=== PATIENT | female | born 1985 | race Caucasian/White ===

== ENCOUNTER 2017-02-25 07:54 | Emergency (ER) | payer OTHER ==
[2017-02-25 08:03] VITALS: BP 99/56
--- NOTE | 2017-02-25 08:19 | UC ---
Throat Pain/Nasal Torsten HPI - HPI Summary HPI Summary: sinus pain and pressure x 7 days + pnd, cough, no fever, no chills - History of Current Complaint Chief Complaint: UCRespiratory Stated Complaint: RESPIRATORY,SINUS Time Seen by Provider: 02/25/17 08:00 Hx Obtained From: Patient Hx Last Menstrual Period: TWO YEARS AGO, HAD UTERINE ABLATION, TUBAL LIGATION ?: No Onset/Duration: Gradual Onset, Lasting Days - 7, Still Present Severity: Moderate Cough: Nonproductive Associated Signs & Symptoms: Positive: Sinus Discomfort, Nasal Discharge. Negative: Dysphagia, Fever, Rash - Allergies/Home Medications Allergies/Adverse Reactions: Allergies Allergy/AdvReac Type Severity Reaction Status Date / Time Penicillins AdvReac Severe Abdominal Verified 02/25/17 08:03 Pain Albuterol AdvReac Shanking, Verified 02/25/17 08:03 Anxiety Peanut Oil AdvReac GI Upset Verified 02/25/17 08:03 peanuts Allergy Stomach Uncoded 02/25/17 08:03 Cramps PMH/Surg Hx/FS Hx/Imm Hx Endocrine History Of: Denies: Diabetes, Thyroid Disease, Hyperthyroidism, Hypothyroidism, Dyslipidemia Cardiovascular History Of: Denies: Cardiac Disorders, Hypertension, Pacemaker/ICD, Myocardial Infarction , Congestive Heart Failure, Atrial Fibrillation, Deep Vein Thrombosis, Bleeding Disorders Respiratory History Of: Reports: Asthma - only uses [place] inh prn, Bronchitis Denies: COPD, Pneumonia, Pulmonary Embolism GI/ History Of: Reports: Gastroesophageal Reflux, Ulcer Denies: Gastrointestinal Bleed, Gall Bladder Disease, Kidney Stones, Diverticulitis, Renal Disease, Urosepsis Neurological History Of: Denies: TIA, CVA, Dementia, Seizures, Migraine Psychological History Of: Denies: Anxiety, Depression, Bipolar Disorder, Schizophrenia, Post Traumatic Stress Disorder Cancer History Of: Denies: Lung Cancer, Colorectal Cancer, Breast Cancer, Prostate Cancer, Cervical Cancer Other History Of: Negative For: HIV, Hepatitis B, Hepatitis C, Anticoagulant Therapy - Surgical History Surgical History: Yes Surgery Procedure, Year, and Place: Uterine Ablation, 09/14/12. Tubal Ligation , 2011. ENDOSCOPY - Family History Known Family History: Positive: Respiratory Disease Negative: Cardiac Disease, Hypertension, Diabetes - Social History Alcohol Use: None Substance Use Type: None Smoking Status (MU): Former Smoker Have You Smoked in the Last Year: No When Did the Patient Quit Smoking/Using Tobacco: 3 years ago - Immunization History Most Recent Influenza Vaccination: OCT 2015 Most Recent Tetanus Shot: May 2013 Hx Tetanus, Diphtheria Vaccination: Yes Vaccination Up to Date: Yes Review of Systems Constitutional: Negative Skin: Negative Eyes: Negative ENT: Sore Throat, Nasal Discharge Respiratory: Cough Cardiovascular: Negative All Other Systems Reviewed And Are Negative: Yes Physical Exam Triage Information Reviewed: Yes Appearance: Well-Appearing, No Pain Distress, Well-Nourished Vital Signs: Initial Vital Signs Temp 98 F 02/25/17 07:58 Pulse 62 02/25/17 07:58 Resp 18 02/25/17 07:58 BP 99/56 02/25/17 07:58 Pulse Ox 98 02/25/17 07:58 Vital Signs Reviewed: Yes Eye Exam: Normal Eyes: Positive: Conjunctiva Clear ENT: Positive: Normal ENT inspection, Hearing grossly normal, Pharyngeal erythema, Nasal congestion, Nasal drainage, TMs normal Neck exam: Normal Neck: Positive: Supple, Nontender, No Lymphadenopathy Respiratory: Positive: Chest non-tender, Lungs clear, Normal breath sounds Cardiovascular: Positive: RRR, No Murmur, Pulses Normal Abdominal Exam: Normal Abdomen Description: Positive: Nontender, No Organomegaly, Soft Bowel Sounds: Positive: Present Throat Pain/Nasal Course/Dx - Differential Dx/Diagnosis Provider Diagnoses: sinusitis Discharge - Discharge Plan Condition: Stable Disposition: HOME Prescriptions: Amoxicillin/Clavulanate TAB* [Augmentin TAB 875*] 875 mg PO BID #20 tab Fluticasone HFA 44 mcg(NF) [Flovent Hfa 44 mcg(NF)] 1 puff INH BID #1 mdi Patient Education Materials: Sinusitis (ED) Referrals: Kayla Roy MD [Primary Care Provider] - If Needed
== END 2017-02-25 08:22 | disposition home or self-care (01) ==
LOC: UCCORT 07:54
DX: J32.9 Chronic sinusitis, unspecified (principal); J45.909 Unspecified asthma, uncomplicated; K21.9 Gastro-esophageal reflux disease without esophagitis; Z88.0 Allergy status to penicillin; Z87.891 Personal history of nicotine dependence
CPT/HCPCS: 99212; G0463

== ENCOUNTER 2017-03-03 11:00 | Emergency (ER) | payer OTHER ==
[2017-03-03 11:21] VITALS: BP 108/44
[2017-03-03] MEDS ORDERED: Ondansetron ODT TAB* 4 MG PO ONE (11:29)
--- NOTE | 2017-03-03 11:35 | ED ---
Abdominal Pain/Female - HPI Summary HPI Summary: 31 yr old female with the complaint of NV, epigastric pain. Onset of symptoms 1 hours ago. 8/10 epigastric pain that doubles her over. She is dry heaving. She has no diarrhea. The patient states she had a recent upper respiratory infection. She feels this is a new separate issue today. The patient has had cough, and pain in chest with coughing as well for several days. - History of Current Complaint Chief Complaint: UCAbdominalPain Stated Complaint: VOMITING [place]S FEVER Time Seen by Provider: 03/03/17 11:23 Hx Last Menstrual Period: Uterine Ablasion- 2011 Allergies/Adverse Reactions: Allergies Allergy/AdvReac Type Severity Reaction Status Date / Time Penicillins AdvReac Severe Abdominal Verified 03/03/17 11:20 Pain Albuterol AdvReac Shanking, Verified 03/03/17 11:20 Anxiety Peanut Oil AdvReac GI Upset Verified 03/03/17 11:20 Blue Foam Allergy Hives Uncoded 03/03/17 11:21 peanuts Allergy Stomach Uncoded 03/03/17 11:20 Cramps PMH/Surg Hx/FS Hx/Imm Hx Endocrine/Hematology History: Denies: Hx Anticoagulant Therapy, Hx Diabetes, Hx Thyroid Disease Cardiovascular History: Denies: Hx Congestive Heart Failure, Hx Deep Vein Thrombosis, Hx Hypertension , Hx Myocardial Infarction, Hx Pacemaker/ICD Respiratory History: Reports: Hx Asthma - only uses [place] inh prn Denies: Hx Chronic Obstructive Pulmonary Disease (COPD), Hx Lung Cancer, Hx Pneumonia, Hx Pulmonary Embolism GI History: Reports: Hx Ulcer Denies: Hx Gall Bladder Disease, Hx Gastrointestinal Bleed, Hx Urosepsis History: Denies: Hx Kidney Stones, Hx Renal Disease Neurological History: Denies: Hx Dementia, Hx Migraine, Hx Seizures, Hx Transient Ischemic Attacks (TIA) Psychiatric History: Denies: Hx Anxiety, Hx Depression, Hx Schizophrenia, Hx Bipolar Disorder - Surgical History Surgery Procedure, Year, and Place: Uterine Ablation, 09/14/12. Tubal Ligation , 2011. ENDOSCOPY Infectious Disease History: No Infectious Disease History: Denies: Hx Clostridium Difficile, Hx Hepatitis, Hx Human Immunodeficiency Virus (HIV), Hx of Known/Suspected MRSA, Hx Shingles, Hx Tuberculosis, Hx Known/ Suspected VRE, Hx Known/Suspected VRSA, History Other Infectious Disease, Traveled Outside the [place] in Last 30 Days - Family History Known Family History: Positive: Respiratory Disease Negative: Cardiac Disease, Hypertension, Diabetes - Social History Alcohol Use: None Substance Use Type: Reports: None Smoking Status (MU): Former Smoker Have You Smoked in the Last Year: No Review of Systems Positive: Chills, Fatigue Positive: Chest Pain Positive: Abdominal Pain, Vomiting, Nausea All Other Systems Reviewed And Are Negative: Yes Physical Exam Triage Information Reviewed: Yes Vital Signs On Initial Exam: Initial Vitals Temp Pulse Resp BP Pulse Ox 97.0 F 60 18 108/44 100 03/03/17 11:12 03/03/17 11:12 03/03/17 11:12 03/03/17 11:12 03/03/17 11:12 Vital Signs Reviewed: Yes Appearance: Positive: Ill-Appearing, Pain Distress Skin: Positive: Warm Head/Face: Positive: Normal Head/Face Inspection Eyes: Positive: Normal, EOMI ENT: Positive: Normal ENT inspection Neck: Positive: Supple Respiratory/Lung Sounds: Positive: Clear to Auscultation, Breath Sounds Present Cardiovascular: Positive: Normal, RRR. Negative: Murmur Abdomen Description: Positive: Other: - epigastric tenderness Musculoskeletal: Positive: Normal, Strength/ROM Intact Neurological: Positive: Normal, Sensory/Motor Intact, Alert, Oriented to Person Place, Time Diagnostics - Vital Signs Vital Signs Temp Pulse Resp BP Pulse Ox 03/03/17 11:12 97.0 F 60 18 108/44 100 - Laboratory Lab Statement: Any lab studies that have been ordered have been reviewed, and results considered in the medical decision making process. Abdominal Pain Fem Course/Dx - Course Course Of Treatment: 31 yr old with epigastric pain and vomiting and other complaints. To [facility] for further eval. Lexi Wlaler contacted and accepts transfer to the ER. - Diagnoses Provider Diagnoses: Abdominal pain, Vomiting Discharge - Discharge Plan Condition: Good [facility]
== END 2017-03-03 11:52 | disposition short-term general hospital (02) ==
LOC: UCCORT 11:00
DX: R10.13 Epigastric pain (principal); R11.2 Nausea with vomiting, unspecified; J45.909 Unspecified asthma, uncomplicated; Z88.0 Allergy status to penicillin; Z87.891 Personal history of nicotine dependence
CPT/HCPCS: 99213; G0463

== ENCOUNTER 2017-06-05 17:40 | Emergency (ER) | payer OTHER ==
[2017-06-05 18:01] VITALS: BP 114/58
--- NOTE | 2017-06-05 18:35 | UC ---
Throat Pain/Nasal Torsten HPI - HPI Summary HPI Summary: ONE WEEK OF PRODUCTIVE COUGH AND RESPIRATORY CONGESTION AND SINUS PRESSURE. TODAY SORE THROAT, WORSENING SINUS CONGESTION, AND LARYNGITIS. FEVER TODAY. - History of Current Complaint Chief Complaint: UCRespiratory Stated Complaint: COUGH/CONGESTION/SORE THROAT Time Seen by Provider: 06/05/17 18:04 Hx Obtained From: Patient Hx Last Menstrual Period: HAS HAD A UTERINE ABLATION. DOES NOT HAVE REG PERIODS Onset/Duration: Gradual Onset, Lasting Weeks, Worse Since - TODAY Severity: Moderate Cough: Productive Associated Signs & Symptoms: Positive: Hoarseness, Sinus Discomfort, Nasal Discharge, Fever - Epiglottits Risk Factors Epiglottis Risk Factors: Negative - Allergies/Home Medications Allergies/Adverse Reactions: Allergies Allergy/AdvReac Type Severity Reaction Status Date / Time Penicillins AdvReac Severe Abdominal Verified 06/05/17 17:51 Pain Albuterol AdvReac Shanking, Verified 06/05/17 17:51 Anxiety Peanut Oil AdvReac GI Upset Verified 06/05/17 17:51 Blue Foam Allergy Hives Uncoded 06/05/17 17:51 peanuts Allergy Stomach Uncoded 06/05/17 17:51 Cramps Home Medications: Home Medications Butalb/Acetamin/Caff TAB* [Fioricet TAB*] 1 tab PO Q6H PRN 06/05/17 [History Confirmed 06/05/17] PMH/Surg Hx/FS Hx/Imm Hx Previously Healthy: Yes Other History Of: Negative For: HIV, Hepatitis B, Hepatitis C, Anticoagulant Therapy - Surgical History Surgical History: Yes Surgery Procedure, Year, and Place: Uterine Ablation, 09/14/12. Tubal Ligation , 2011. ENDOSCOPY - Family History Known Family History: Positive: Respiratory Disease Negative: Cardiac Disease, Hypertension, Diabetes - Social History Occupation: Employed Full-time Lives: With Family Alcohol Use: None Substance Use Type: None Smoking Status (MU): Former Smoker Have You Smoked in the Last Year: No When Did the Patient Quit Smoking/Using Tobacco: 2013 Household Exposure Type: Cigarettes - Immunization History Most Recent Influenza Vaccination: OCT 2015 Most Recent Tetanus Shot: May 2013 Hx Tetanus, Diphtheria Vaccination: Yes Vaccination Up to Date: Yes Review of Systems Constitutional: Fever, Fatigue Skin: Negative ENT: Sore Throat, Nasal Discharge, Sinus Congestion, Sinus Pain/Tenderness Respiratory: Cough Cardiovascular: Negative Gastrointestinal: Negative Genitourinary: Negative Motor: Negative Neurovascular: Negative Musculoskeletal: Negative Neurological: Negative Psychological: Negative All Other Systems Reviewed And Are Negative: Yes Physical Exam Triage Information Reviewed: Yes Appearance: No Pain Distress, Well-Nourished, Ill-Appearing Vital Signs: Initial Vital Signs Temp 99.8 F 06/05/17 17:54 Pulse 63 06/05/17 17:54 Resp 18 06/05/17 17:54 BP 114/58 06/05/17 17:54 Pulse Ox 100 06/05/17 17:54 Vital Signs Reviewed: Yes Eye Exam: Normal ENT: Positive: Pharyngeal erythema, Nasal congestion, TM bulging, TM dull Dental Exam: Normal Neck exam: Normal Neck: Positive: Supple, Nontender Respiratory Exam: Other - COUGH Respiratory: Positive: Chest non-tender, Lungs clear, Normal breath sounds, No respiratory distress, No accessory muscle use Cardiovascular Exam: Normal Cardiovascular: Positive: RRR, No Murmur, Pulses Normal, Brisk Capillary Refill Abdominal Exam: Normal Musculoskeletal Exam: Normal Musculoskeletal: Positive: Strength Intact, ROM Intact, No Edema Neurological Exam: Normal Psychological Exam: Normal Skin Exam: Normal Throat Pain/Nasal Course/Dx - Differential Dx/Diagnosis Differential Diagnosis/HQI/PQRI: Pharyngitis, Sinusitis, URI Provider Diagnoses: SINUSITIS; LARYNGITIS Discharge - Discharge Plan Condition: Stable Disposition: HOME Prescriptions: Azithromycin TAB* [Zithromax TAB (Z-OTTO) 250 mg #6 tabs] 250 mg PO DAILY #6 tab Patient Education Materials: Sinusitis (ED), Laryngitis (ED), Acute Bronchitis (ED) Forms: *Work Release Referrals: Kayla Roy MD [Primary Care Provider] -
== END 2017-06-05 18:33 | disposition home or self-care (01) ==
LOC: UCCORT 17:40
DX: J32.9 Chronic sinusitis, unspecified (principal); J04.0 Acute laryngitis; Z88.0 Allergy status to penicillin; Z87.891 Personal history of nicotine dependence
CPT/HCPCS: 87651; 99212; G0463

== ENCOUNTER 2017-06-25 09:05 | Emergency (ER) | payer OTHER ==
--- NOTE | 2017-06-25 09:21 | UC ---
Complaint Female HPI - HPI Summary HPI Summary: Vaginal burning and itching for a few days. No recent antibiotics. this feels similar to prior yeast infections. No prior STD and she uses condoms every time. - History Of Current Complaint Stated Complaint: PERSONAL Time Seen by Provider: 06/25/17 09:13 Hx Last Menstrual Period: HAS HAD A UTERINE ABLATION. DOES NOT HAVE REG PERIODS ?: No Onset/Duration: Gradual Onset Timing: Lasting Days Severity Initially: Mild Severity Currently: Moderate Character: Burning Aggravating Factor(s): Movement Alleviating Factor(s): Position Associated Signs And Symptoms: Positive: Vaginal Discharge, Genital Swelling. Negative: Nausea, Genital Blisters Related Hx: Similar Episode/Dx as: - yeast infection. - Allergies/Home Medications Allergies/Adverse Reactions: Allergies Allergy/AdvReac Type Severity Reaction Status Date / Time Penicillins AdvReac Severe Abdominal Verified 06/25/17 09:22 Pain Albuterol AdvReac Shanking, Verified 06/25/17 09:22 Anxiety Amoxicillin [From Augmentin] AdvReac Abdominal Verified 06/25/17 09:23 Pain Clavulanic Acid AdvReac Abdominal Verified 06/25/17 09:23 [From Augmentin] Pain Peanut Oil AdvReac GI Upset Verified 06/25/17 09:22 Blue Foam Allergy Hives Uncoded 06/25/17 09:22 peanuts Allergy Stomach Uncoded 06/25/17 09:22 Cramps PMH/Surg Hx/FS Hx/Imm Hx Previously Healthy: No - prior yeast vaginitis. Other History Of: Negative For: HIV, Hepatitis B, Hepatitis C, Anticoagulant Therapy - Surgical History Surgical History: Yes Surgery Procedure, Year, and Place: Uterine Ablation, 09/14/12. Tubal Ligation , 2011. ENDOSCOPY - Family History Known Family History: Positive: Respiratory Disease Negative: Cardiac Disease, Hypertension, Diabetes - Social History Alcohol Use: None Substance Use Type: None Smoking Status (MU): Former Smoker Have You Smoked in the Last Year: No When Did the Patient Quit Smoking/Using Tobacco: 2013 Household Exposure Type: Cigarettes - Immunization History Most Recent Influenza Vaccination: OCT 2015 Most Recent Tetanus Shot: May 2013 Hx Tetanus, Diphtheria Vaccination: Yes Vaccination Up to Date: Yes Review of Systems Genitourinary: Other - burning and itching. All Other Systems Reviewed And Are Negative: Yes Physical Exam Triage Information Reviewed: Yes Appearance: Well-Appearing, No Pain Distress, Well-Nourished Vital Signs Reviewed: Yes Eye Exam: Normal ENT Exam: Normal Neck exam: Normal Respiratory Exam: Normal Cardiovascular Exam: Normal Abdominal Exam: Normal, Other - external vaginal exam shows irritation and pinkness with moderate thick discharge. Musculoskeletal Exam: Normal Neurological Exam: Normal Psychological Exam: Normal Skin Exam: Normal Complaint Female Dx - Differential Dx/Diagnosis Differential Diagnosis/HQI/PQRI: Ovarian Cyst, Ovarian Torsion, Pelvic Inflammatory Disease, Retained Foreign Body, Sexually Transmitted Disease, Tubo- ovarian Abscess Provider Diagnoses: yeast vaginitis. Discharge - Discharge Plan Condition: Good Disposition: HOME Prescriptions: Fluconazole 100 MG TAB* [Diflucan 100 MG TAB*] 100 mg PO DAILY #3 tab Patient Education Materials: Vulvovaginal Candidiasis (ED) Referrals: Kayla Roy MD [Primary Care Provider] - If Needed
[2017-06-25 09:38] VITALS: BP 104/64
--- NOTE | 2017-06-26 07:55 | UC ---
Progress - Progress Note Progress Note: vag DNA is neg for joanna. Was given fluconazole x 3 days. May DC fluconazole. If still has sxs, needs re-evaluation. Everette Mane MD 06/26/17 0755am
== END 2017-06-25 09:44 | disposition home or self-care (01) ==
LOC: UCCORT 09:05
DX: B37.3 Candidiasis of vulva and vagina (principal); Z88.1 Allergy status to other antibiotic agents; Z88.0 Allergy status to penicillin; Z87.891 Personal history of nicotine dependence
CPT/HCPCS: 87480; 87491; 87510; 87591; 87661; 99202; G0463

== ENCOUNTER 2017-07-01 08:37 | Emergency (ER) | payer OTHER ==
[2017-07-01 08:47] VITALS: BP 96/56
--- NOTE | 2017-07-01 09:03 | UC ---
Complaint Female HPI - HPI Summary HPI Summary: vaginal discharge x 1 week\ was seen at the urgent care one week ago , was place on diflucan , vaginal cultures has been negative for BV or Antonia cont. to have discharge with fishy odor no dysuria, no fever, no chills - History Of Current Complaint Chief Complaint: UCGU Stated Complaint: PERSONAL Time Seen by Provider: 07/01/17 08:48 Hx Obtained From: Patient Hx Last Menstrual Period: 2 yrs ago Onset/Duration: Gradual Onset, Lasting Days - 7, Still Present Timing: Constant Severity Initially: Moderate Severity Currently: Moderate Character: Not Applicable Aggravating Factor(s): Nothing Alleviating Factor(s): Nothing Associated Signs And Symptoms: Positive: Vaginal Discharge. Negative: Fever, Back Pain, Vaginal Bleeding/Discharge, Nausea, Vomiting(# Of Episodes =), Genital Swelling, Genital Blisters, Retained Foregin Body (Specify) - Allergies/Home Medications Allergies/Adverse Reactions: Allergies Allergy/AdvReac Type Severity Reaction Status Date / Time Penicillins AdvReac Severe Abdominal Verified 07/01/17 08:40 Pain Albuterol AdvReac Shanking, Verified 07/01/17 08:40 Anxiety Amoxicillin [From Augmentin] AdvReac Abdominal Verified 07/01/17 08:40 Pain Clavulanic Acid AdvReac Abdominal Verified 07/01/17 08:40 [From Augmentin] Pain Peanut Oil AdvReac GI Upset Verified 07/01/17 08:40 Blue Foam Allergy Hives Uncoded 07/01/17 08:40 peanuts Allergy Stomach Uncoded 07/01/17 08:40 Cramps PMH/Surg Hx/FS Hx/Imm Hx Previously Healthy: Yes Other History Of: Negative For: HIV, Hepatitis B, Hepatitis C, Anticoagulant Therapy - Surgical History Surgical History: Yes Surgery Procedure, Year, and Place: Uterine Ablation, 09/14/12. Tubal Ligation , 2011. ENDOSCOPY - Family History Known Family History: Positive: Respiratory Disease Negative: Cardiac Disease, Hypertension, Diabetes - Social History Alcohol Use: None Substance Use Type: None Smoking Status (MU): Former Smoker Have You Smoked in the Last Year: No When Did the Patient Quit Smoking/Using Tobacco: 2013 Household Exposure Type: Cigarettes - Immunization History Most Recent Influenza Vaccination: OCT 2015 Most Recent Tetanus Shot: May 2013 Hx Tetanus, Diphtheria Vaccination: Yes Vaccination Up to Date: Yes Review of Systems Constitutional: Negative Skin: Negative Eyes: Negative ENT: Negative Respiratory: Negative Cardiovascular: Negative Gastrointestinal: Negative Genitourinary: Other - vaginal discharge All Other Systems Reviewed And Are Negative: Yes Physical Exam Triage Information Reviewed: Yes Appearance: Well-Appearing, No Pain Distress, Well-Nourished Vital Signs: Initial Vital Signs Temp 99.2 F 07/01/17 08:42 Pulse 60 07/01/17 08:42 Resp 16 07/01/17 08:42 BP 96/56 07/01/17 08:42 Pulse Ox 100 07/01/17 08:42 Eye Exam: Normal Eyes: Positive: Conjunctiva Clear ENT: Positive: Normal ENT inspection, Hearing grossly normal, Pharynx normal Neck: Positive: Supple, Nontender, No Lymphadenopathy Respiratory: Positive: Chest non-tender, Lungs clear, Normal breath sounds Cardiovascular: Positive: RRR, No Murmur, Pulses Normal Abdominal Exam: Normal Abdomen Description: Positive: Nontender, Soft. Negative: CVA Tenderness (R), CVA Tenderness (L), Distended, Guarding Bowel Sounds: Positive: Present Skin Exam: Normal Complaint Female Dx - Course Course Of Treatment: will start treatment with Flagyl. will not obtain culture at this time. pt. with follow up with her pcp in one week if not better - Differential Dx/Diagnosis Provider Diagnoses: vaginitis Discharge - Discharge Plan Condition: Stable Disposition: HOME Prescriptions: Metronidazole [Flagyl 500 MG TAB] 500 mg PO BID #20 tab Patient Education Materials: Bacterial Vaginosis (ED) Referrals: Kayla Roy MD [Primary Care Provider] - 7 Days
== END 2017-07-01 09:03 | disposition home or self-care (01) ==
LOC: UCCORT 08:37
DX: N76.0 Acute vaginitis (principal); Z88.0 Allergy status to penicillin; Z88.8 Allergy status to other drugs, medicaments and biological substances; Z88.1 Allergy status to other antibiotic agents; Z91.010 Allergy to peanuts; Z87.891 Personal history of nicotine dependence
CPT/HCPCS: 99212; G0463

== ENCOUNTER 2017-07-10 17:34 | Emergency (ER) | payer OTHER ==
[2017-07-10 18:08] VITALS: BP 104/61
--- NOTE | 2017-07-10 18:48 | UC ---
Complaint Female HPI - HPI Summary HPI Summary: vaginal discharge x 1 week + dysuria , no abdominal pain , no fever, no chills - History Of Current Complaint Chief Complaint: UCGeneralIllness Stated Complaint: PERSONAL Time Seen by Provider: 07/10/17 18:02 Hx Obtained From: Patient Hx Last Menstrual Period: hx of tubal/ablation ?: No Onset/Duration: Gradual Onset, Lasting Days - 7, Still Present Timing: Constant Severity Initially: Moderate Severity Currently: Moderate Character: Burning Aggravating Factor(s): Urination Alleviating Factor(s): Nothing Associated Signs And Symptoms: Positive: Vaginal Discharge. Negative: Fever, Back Pain, Vaginal Bleeding/Discharge, Nausea, Vomiting(# Of Episodes =), Genital Swelling, Genital Blisters, Retained Foregin Body (Specify) - Allergies/Home Medications Allergies/Adverse Reactions: Allergies Allergy/AdvReac Type Severity Reaction Status Date / Time Penicillins AdvReac Severe Abdominal Verified 07/10/17 17:46 Pain Albuterol AdvReac Shanking, Verified 07/10/17 17:46 Anxiety Amoxicillin [From Augmentin] AdvReac Abdominal Verified 07/10/17 17:46 Pain Clavulanic Acid AdvReac Abdominal Verified 07/10/17 17:46 [From Augmentin] Pain Peanut Oil AdvReac GI Upset Verified 07/10/17 17:46 Blue Foam Allergy Hives Uncoded 07/10/17 17:46 peanuts Allergy Stomach Uncoded 07/10/17 17:46 Cramps PMH/Surg Hx/FS Hx/Imm Hx Previously Healthy: Yes Other History Of: Negative For: HIV, Hepatitis B, Hepatitis C, Anticoagulant Therapy - Surgical History Surgical History: Yes Surgery Procedure, Year, and Place: Uterine Ablation, 09/14/12. Tubal Ligation , 2011. ENDOSCOPY - Family History Known Family History: Positive: Respiratory Disease Negative: Cardiac Disease, Hypertension, Diabetes - Social History Alcohol Use: None Substance Use Type: None Smoking Status (MU): Former Smoker Have You Smoked in the Last Year: No When Did the Patient Quit Smoking/Using Tobacco: 2013 Household Exposure Type: Cigarettes - Immunization History Most Recent Influenza Vaccination: NONE 2015 Most Recent Tetanus Shot: May 2013 Hx Tetanus, Diphtheria Vaccination: Yes Vaccination Up to Date: Yes Review of Systems Constitutional: Negative Skin: Negative Eyes: Negative ENT: Negative Respiratory: Negative All Other Systems Reviewed And Are Negative: Yes Physical Exam Triage Information Reviewed: Yes Appearance: Well-Appearing, No Pain Distress, Well-Nourished Vital Signs: Initial Vital Signs Temp 99.1 F 07/10/17 17:47 Pulse 44 07/10/17 17:47 Resp 16 07/10/17 17:47 BP 104/61 07/10/17 17:47 Pulse Ox 100 07/10/17 17:47 Vital Signs Reviewed: Yes Eye Exam: Normal Eyes: Positive: Conjunctiva Clear ENT: Positive: Normal ENT inspection, Hearing grossly normal, Pharynx normal Neck: Positive: Supple, Nontender, No Lymphadenopathy Respiratory: Positive: Chest non-tender, Lungs clear, Normal breath sounds Cardiovascular: Positive: RRR, No Murmur, Pulses Normal Abdomen Description: Positive: Nontender, Soft. Negative: CVA Tenderness (R), CVA Tenderness (L), Distended, Guarding Bowel Sounds: Positive: Present Skin Exam: Normal UC Physical Exam Vital Signs On Initial Exam: Initial Vitals Temp Pulse Resp BP Pulse Ox 99.1 F 44 16 104/61 100 07/10/17 17:47 07/10/17 17:47 07/10/17 17:47 07/10/17 17:47 07/10/17 17:47 - Genitalia Exam Female Genitourinary: Cervix Discharge Complaint Female Dx - Course Course Of Treatment: pt. does not want any tx of gc /chl. she would like to be treated for bv with Clinda and will wait for the culture results - Differential Dx/Diagnosis Provider Diagnoses: vaginitis Discharge - Discharge Plan Condition: Stable Disposition: HOME Prescriptions: Clindamycin Cap(NF) [Clindamycin Cap 300 mg Cap(NF)] 300 mg PO Q6H #40 cap Patient Education Materials: Vaginitis (ED) Referrals: Kayla Roy MD [Primary Care Provider] - 4 Days Additional Instructions: will check go GC/ Chle please call the office in 2 days for the results
== END 2017-07-10 18:52 | disposition home or self-care (01) ==
LOC: UCCORT 17:34
DX: N76.0 Acute vaginitis (principal); Z88.0 Allergy status to penicillin; Z88.3 Allergy status to other anti-infective agents; Z91.010 Allergy to peanuts; Z87.891 Personal history of nicotine dependence
CPT/HCPCS: 81003; 87480; 87491; 87510; 87591; 87661; 99212; G0463

== ENCOUNTER 2017-07-12 10:54 | Emergency (ER) | payer OTHER ==
[2017-07-12 11:06] VITALS: BP 110/58
--- NOTE | 2017-07-12 11:29 | UC ---
Complaint Female HPI - HPI Summary HPI Summary: 32 y/o female presents to the urgent care c/o itching, burning sensation in the vaginal perineal area with a cottage cheese like discharge. She was here about 2 weeks ago and was Tx for a yeast infection and then last 07/10/2017 she came with BV symptoms and Rx Clyndamycin b/c Flagyl was not working. She states this always happens when the she changes partner. She has been with the same partner for a few weeks. she does use condoms. Pt requests Tx for yeast Infection, even though she knows the lab results they did Last were negative for Antonia and BV. Pt with Hx uterine ablation and B/L tubal ligation. Pt denies fever, vaginal bleeding, pelvic pain, urinary symptoms. abdominal pain. - History Of Current Complaint Chief Complaint: UCGU Stated Complaint: PERSONAL Time Seen by Provider: 07/12/17 11:10 Hx Obtained From: Patient Hx Last Menstrual Period: ablation, tubal ?: No Onset/Duration: Gradual Onset, Lasting Days, Still Present Timing: Constant, Lasting Days - 3 days Severity Initially: Mild Severity Currently: Moderate Pain Intensity: 0 Pain Scale Used: 0-10 Numeric Character: Not Applicable Aggravating Factor(s): Nothing Alleviating Factor(s): Meds Associated Signs And Symptoms: Positive: Vaginal Discharge - Cottage cheese vaginal discharge. Negative: Fever, Back Pain, Vaginal Bleeding/Discharge, Nausea, Vomiting(# Of Episodes =), Genital Swelling, Genital Blisters - Risk Factors Ectopic Risk Factor: Negative Ovarian Torsion Risk Factor: Negative - Allergies/Home Medications Allergies/Adverse Reactions: Allergies Allergy/AdvReac Type Severity Reaction Status Date / Time Penicillins AdvReac Severe Abdominal Verified 07/12/17 11:07 Pain Albuterol AdvReac Shanking, Verified 07/12/17 11:07 Anxiety Amoxicillin [From Augmentin] AdvReac Abdominal Verified 07/12/17 11:07 Pain Clavulanic Acid AdvReac Abdominal Verified 07/12/17 11:07 [From Augmentin] Pain Peanut Oil AdvReac GI Upset Verified 07/12/17 11:07 Blue Foam Allergy Hives Uncoded 07/12/17 11:07 peanuts Allergy Stomach Uncoded 07/12/17 11:07 Cramps PMH/Surg Hx/FS Hx/Imm Hx Previously Healthy: Yes Respiratory History: Asthma Other History Of: Negative For: HIV, Hepatitis B, Hepatitis C, Anticoagulant Therapy - Surgical History Surgical History: Yes Surgery Procedure, Year, and Place: Uterine Ablation, 09/14/12. Tubal Ligation , 2011. ENDOSCOPY - Family History Known Family History: Positive: Respiratory Disease Negative: Cardiac Disease, Hypertension, Diabetes - Social History Alcohol Use: None Substance Use Type: None Smoking Status (MU): Former Smoker Have You Smoked in the Last Year: No When Did the Patient Quit Smoking/Using Tobacco: 2013 Household Exposure Type: Cigarettes - Immunization History Most Recent Influenza Vaccination: OCT 2015 Most Recent Tetanus Shot: May 2013 Hx Tetanus, Diphtheria Vaccination: Yes Vaccination Up to Date: Yes Review of Systems Constitutional: Negative Skin: Negative Eyes: Negative ENT: Negative, Dental Pain Cardiovascular: Negative Gastrointestinal: Negative Genitourinary: Other - white and cottage cheese vaginal discharge. W/ vaginal burning Motor: Negative Neurovascular: Negative Musculoskeletal: Negative Neurological: Negative Psychological: Negative All Other Systems Reviewed And Are Negative: Yes Physical Exam Triage Information Reviewed: Yes Appearance: Well-Appearing, No Pain Distress, Well-Nourished Vital Signs: Initial Vital Signs Temp 98.9 F 07/12/17 11:01 Pulse 47 07/12/17 11:01 Resp 14 07/12/17 11:01 BP 110/58 07/12/17 11:01 Pulse Ox 100 07/12/17 11:01 Vital Signs Reviewed: Yes Eye Exam: Normal Eyes: Positive: Conjunctiva Clear - PERRLA, EOMI ENT Exam: Normal ENT: Positive: Normal ENT inspection, Hearing grossly normal, Pharynx normal, TMs normal Dental Exam: Normal Neck exam: Normal Neck: Positive: Supple, Nontender, No Lymphadenopathy Respiratory Exam: Normal Respiratory: Positive: Chest non-tender, Lungs clear, Normal breath sounds Cardiovascular Exam: Normal Cardiovascular: Positive: RRR, No Murmur, Pulses Normal Abdominal Exam: Normal Abdomen Description: Positive: Nontender, No Organomegaly, Soft. Negative: CVA Tenderness (R), CVA Tenderness (L) Bowel Sounds: Positive: Present Musculoskeletal Exam: Normal Musculoskeletal: Positive: Strength Intact, ROM Intact, No Edema Neurological Exam: Normal Psychological Exam: Normal Skin Exam: Normal Complaint Female Dx - Course Course Of Treatment: 32 y/o female presents to the urgent care c/o itching, burning sensation in the vaginal perineal area with a cottage cheese like discharge. She was here about 2 weeks ago and was Tx for a yeast infection and then last 07/10/2017 she came with BV symptoms and Rx Clyndamycin b/c Flagyl was not working. She states this always happens when the she changes partner. She has been with the same partner for a few weeks. she does use condoms. Pt requests Tx for yeast Infection, even though she knows the lab results they did Last were negative for Antonia and BV. Pt with Hx uterine ablation and B/L tubal ligation. Pt denies fever, vaginal bleeding, pelvic pain, urinary symptoms. abdominal pain. Hx obtained. PE: WNL, Pt decline pelvic examination. No Hx of STDs Eventhough lab results are negative for Candidiasis and BV she Requested Fluconazole PO. Pt Rx Fluconazole 100mg PO X 3 days. Pt advised to eat yougurt with probiotics. If not improvement of symptoms advised to return to the urgetn care or f/u with [facility]. Pt understands and agreed. - Differential Dx/Diagnosis Differential Diagnosis/HQI/PQRI: Cervicitis, Pelvic Inflammatory Disease, Sexually Transmitted Disease, Urinary Tract Infection Provider Diagnoses: 1- Vulvovaginal Candidiasis Discharge - Discharge Plan Condition: Stable Disposition: HOME Prescriptions: Fluconazole 100 MG TAB* [Diflucan 100 MG TAB*] 100 mg PO DAILY #3 tab Patient Education Materials: Vulvovaginal Candidiasis (ED) Referrals: Kayla Roy MD [Primary Care Provider] - 1 Week Additional Instructions: 1- Please take Fluconazole 100mg as directed to alleviate symptoms. 2-If symptoms do not improve please return to the urgent care or f/u with her PCP.
== END 2017-07-12 11:46 | disposition home or self-care (01) ==
LOC: UCCORT 10:54
DX: B37.3 Candidiasis of vulva and vagina (principal); Z87.891 Personal history of nicotine dependence
CPT/HCPCS: 99212; G0463

== ENCOUNTER 2018-02-25 08:42 | Emergency (ER) | payer OTHER ==
[2018-02-25] MEDS ORDERED: NS 0.9% 1000 ML* 1,000 ML IV ONE (09:24)
--- NOTE | 2018-02-25 09:29 | UC ---
Abdominal Pain Female HPI - HPI Summary HPI Summary: October she had an infection of the right colon and she was hospitalized. At some point she was told that she has gall stones without gall bladder disease. She has had upper and lower endoscopies with possible ulcers. She denies melena , BRBPR, hematochezia, hematemesis, fever. In the past several months she has had some intermittent abd pain and nausea. She uses cannibus to improve symptoms. She denies any other illicit drugs. She has had tubes tied but no other abd surgeries. - History of Current Complaint Chief Complaint: UCGI Stated Complaint: VOMITING,STOMACH PAIN Time Seen by Provider: 02/25/18 08:55 Hx Obtained From: Patient Hx Last Menstrual Period: ablation, tubal ?: No Onset/Duration: Gradual Onset, Lasting Days Timing: Intermittent Episodes Lasting: - Hours. She was well yesterday morning. Severity Initially: Moderate Severity Currently: Moderate Pain Intensity: 5 Character: Aching, Cramping Aggravating Factor(s): Nothing Alleviating Factor(s): Spontaneous Resolution, Other: - zofran helps nausea a little. Associated Signs and Symptoms: Positive: Decreased Appetite, Nausea, Vomiting. Negative: Diaphoresis, Fever, Cough, Chest Pain, Constipation, Blood in Stool, Urinary Symptoms, Vaginal Bleeding, Vaginal Discharge, Diarrhea Allergies/Adverse Reactions: Allergies Allergy/AdvReac Type Severity Reaction Status Date / Time albuterol Allergy Anxiety Verified 02/25/18 09:16 amoxicillin Allergy Abdominal Verified 02/25/18 09:16 Pain clavulanic acid Allergy Abdominal Verified 02/25/18 09:16 Pain peanut oil Allergy GI Upset Verified 02/25/18 09:16 Penicillins Allergy Abdominal Verified 02/25/18 09:16 Pain Blue Foam Allergy Hives Uncoded 02/25/18 09:07 peanuts Allergy Stomach Uncoded 02/25/18 09:07 Cramps Home Medications: Home Medications Escitalopram Oxalate [Lexapro] 5 mg PO 02/25/18 [History] Methylphenidate ER TAB* [Concerta ER TAB*] 18 mg PO DAILY 02/25/18 [History Confirmed 02/25/18] PMH/Surg Hx/FS Hx/Imm Hx Previously Healthy: No - right colon infection. gall stones. Other History Of: Negative For: HIV, Hepatitis B, Hepatitis C, Anticoagulant Therapy - Surgical History Surgical History: Yes Surgery Procedure, Year, and Place: Uterine Ablation, 09/14/12. Tubal Ligation , 2011. ENDOSCOPY - Family History Known Family History: Positive: Respiratory Disease Negative: Cardiac Disease, Hypertension, Diabetes - Social History Occupation: Employed Full-time Alcohol Use: Rare Substance Use Type: Marijuana Substance Use Comment - Amount & Last Used: more recently for nausea Smoking Status (MU): Former Smoker Have You Smoked in the Last Year: No When Did the Patient Quit Smoking/Using Tobacco: 2013 Household Exposure Type: Cigarettes - Immunization History Most Recent Influenza Vaccination: OCT 2015 Most Recent Tetanus Shot: May 2013 Hx Tetanus, Diphtheria Vaccination: Yes Vaccination Up to Date: Yes Review of Systems Gastrointestinal: Abdominal Pain, Vomiting Genitourinary: Negative All Other Systems Reviewed And Are Negative: Yes Physical Exam Triage Information Reviewed: Yes Appearance: Pain Distress - Holding her abd but not in extremis. She is still pleasant. Vital Signs: Initial Vital Signs Temp 99.5 F 02/25/18 08:53 Pulse 67 02/25/18 08:53 Resp 20 02/25/18 08:53 BP 105/59 02/25/18 08:53 Pulse Ox 99 02/25/18 08:53 Vital Signs Reviewed: Yes Eye Exam: Normal Eyes: Positive: Conjunctiva Clear ENT: Positive: Normal ENT inspection, Pharynx normal Neck: Positive: Supple, Nontender, No Lymphadenopathy Respiratory: Positive: Lungs clear, Normal breath sounds, No respiratory distress, No accessory muscle use, Respiratory distress. Negative: Decreased breath sounds, Accessory muscle use, Crackles, Rhonchi, Stridor, Wheezing Cardiovascular: Positive: No Murmur, Pulses Normal, Brisk Capillary Refill. Negative: Tachycardia Abdominal Exam: Other - diffuse tenderness with guarding on deep palpation of the LUQ but there is tenderness in all quadrants. neg issa's Abdomen Description: Positive: Soft. Negative: CVA Tenderness (R), CVA Tenderness (L), Distended, Hepatomegaly, Peritoneal Signs, Pulsatile Mass, Splenomegaly Musculoskeletal: Positive: Strength Intact, ROM Intact, No Edema Neurological: Positive: Alert, Muscle Tone Normal. Negative: Fatigued Psychological: Positive: Age Appropriate Behavior Skin: Negative: rashes Re-Evaluation - Re-Evaluation First Eval Change: Improved - NO vomiting in her two hours here. Appears more comfortable. Repeat abd exam is again diffuse tenderness without focal obvious more focal guarding. We will try some belkis mignon and crackers. Abd Pain Female Course/Dx - Course Course Of Treatment: Diffuse abd pain with vomiting. This is not c/w gall bladder etiology. There are no worrisome features of serious bacterial infection such as fever or tachycardia. She has had these episodes on the past and this seems c/w cyclic vomiting. She has had extensive workup including imaging and endoscopies. She is reliable and agrees to go to ED for any worsening symptoms of any kind. - Differential Dx/Diagnosis Provider Diagnoses: diffuse abd pain. vomiting. marijuana use. Discharge - Sign-Out/Discharge Documenting (check all that apply): Discharge - Discharge Plan Condition: Good Disposition: HOME Patient Education Materials: Abdominal Pain (ED) Referrals: Kayla Roy MD [Primary Care Provider] - Additional Instructions: REturn here or to the ED for any worsening. Continue tylenol and fluids and zofran. - Billing Disposition and Condition Condition: GOOD Disposition: HOME
[2018-02-25 11:36] VITALS: BP 101/65
[2018-02-25 13:51] LABS: ABS Basophils 0 10^3/ul (0-0.2); ABS Eosinophils 0.1 10^3/ul (0-0.6); ABS Monocytes 0.5 10^3/ul (0-0.8); ABS Neutrophils 3.6 10^3/ul (1.5-7.7); ABS Nucleated RBC 0 10^3/ul; Eosinophil % 1.1 % (0-6); Hematocrit 38 % (35-47); Lymphocyte % 32.3 % (25-47); Mean Corpuscular HGB Conc 34 g/dl (31-36); Mean Corpuscular Hemoglobin 32 pg (27-31); Mean Corpuscular Volume 95 fL (80-97); Mean Platelet Volume 9.5 um3 (7.4-10.4); Nucleated Red Blood Cells % 0; Platelet Count 156 10^3/ul (150-450); Red Blood Count 4.03 10^6/ul (4.0-5.4); Red Cell Distribution Width 13 % (10.5-15); White Blood Count 6.1 10^3/ul (3.5-10.8)
[2018-02-25 14:12] LABS: EGFR Non-African American 103.1 (>60)
== END 2018-02-25 11:40 | disposition home or self-care (01) ==
LOC: UCCORT 08:42
DX: R10.84 Generalized abdominal pain (principal); R11.11 Vomiting without nausea; F12.90 Cannabis use, unspecified, uncomplicated; Z88.0 Allergy status to penicillin; Z88.8 Allergy status to other drugs, medicaments and biological substances; Z91.010 Allergy to peanuts; Z87.891 Personal history of nicotine dependence
CPT/HCPCS: 36415; 80053; 81003; 83690; 84702; 85025; 96360; 99211; G0463

== ENCOUNTER 2018-07-15 15:42 | Emergency (ER) | payer OTHER ==
[2018-07-15 16:35] VITALS: BP 103/56
--- NOTE | 2018-07-15 17:32 | UC ---
Complaint Female HPI - HPI Summary HPI Summary: 33-year-old female presents with approximately 2 week history of dysuria with occasional urinary frequency and urgency. States she was evaluated by her primary care provider on 06/23/2018 and treated for a urinary tract infection. Unsure of what antibiotic she was given but states was prescribed twice a day for 3 days. States symptoms improved after the antibiotics but then returned approximately one week later. Denies fever, chills, back or flank pain, abdominal pain, nausea, vomiting, or vaginal discharge. - History Of Current Complaint Chief Complaint: UCGU Stated Complaint: URINARY Time Seen by Provider: 07/15/18 16:53 Hx Obtained From: Patient Hx Last Menstrual Period: ABLATION ?: No Onset/Duration: Gradual Onset, Lasting Weeks Timing: Intermittent Severity Initially: Mild Severity Currently: Mild Pain Intensity: 6 Character: Burning Aggravating Factor(s): Urination Alleviating Factor(s): Nothing Associated Signs And Symptoms: Negative: Fever, Back Pain, Vaginal Bleeding/ Discharge, Nausea, Vomiting(# Of Episodes =), Genital Swelling, Genital Blisters - Allergies/Home Medications Allergies/Adverse Reactions: Allergies Allergy/AdvReac Type Severity Reaction Status Date / Time albuterol Allergy Anxiety Verified 02/25/18 09:16 amoxicillin Allergy Abdominal Verified 02/25/18 09:16 Pain clavulanic acid Allergy Abdominal Verified 02/25/18 09:16 Pain peanut oil Allergy GI Upset Verified 02/25/18 09:16 Penicillins Allergy Abdominal Verified 02/25/18 09:16 Pain Blue Foam Allergy Hives Uncoded 02/25/18 09:07 peanuts Allergy Stomach Uncoded 02/25/18 09:07 Cramps Home Medications: Home Medications Dextroamphetamine/Amphetamine [Adderall 10 mg-] 10 mg PO DAILY 07/15/18 [ History Confirmed 07/15/18] PMH/Surg Hx/FS Hx/Imm Hx Previously Healthy: Yes Psychological History: Depression, Other Other Psychological History: ADHD Other History Of: Negative For: HIV, Hepatitis B, Hepatitis C, Anticoagulant Therapy - Surgical History Surgical History: Yes Surgery Procedure, Year, and Place: Uterine Ablation, 09/14/12. Tubal Ligation , 2011. ENDOSCOPY. GALLBLADDER - Family History Known Family History: Positive: Respiratory Disease Negative: Cardiac Disease, Hypertension, Diabetes - Social History Occupation: Employed Full-time Lives: With Family Alcohol Use: Rare Substance Use Type: Marijuana Substance Use Comment - Amount & Last Used: more recently for nausea Smoking Status (MU): Former Smoker Have You Smoked in the Last Year: No When Did the Patient Quit Smoking/Using Tobacco: 2013 Household Exposure Type: Cigarettes - Immunization History Most Recent Influenza Vaccination: OCT 2015 Most Recent Tetanus Shot: May 2013 Hx Tetanus, Diphtheria Vaccination: Yes Vaccination Up to Date: Yes Review of Systems Constitutional: Negative Skin: Negative Respiratory: Negative Cardiovascular: Negative Gastrointestinal: Negative Genitourinary: Dysuria, Frequency, Urgency Is Patient Immunocompromised?: No All Other Systems Reviewed And Are Negative: Yes Physical Exam Triage Information Reviewed: Yes Appearance: Well-Appearing, No Pain Distress, Well-Nourished Vital Signs: Initial Vital Signs Temp 98.6 F 07/15/18 16:29 Pulse 53 07/15/18 16:29 Resp 22 07/15/18 16:29 BP 103/56 07/15/18 16:29 Pulse Ox 97 07/15/18 16:29 Vital Signs Reviewed: Yes Respiratory: Positive: Lungs clear, Normal breath sounds, No respiratory distress Cardiovascular: Positive: RRR, No Murmur Abdomen Description: Positive: Nontender, No Organomegaly, Soft, Bruit. Negative: CVA Tenderness (R), CVA Tenderness (L), Distended, Guarding Neurological: Positive: Alert Skin Exam: Normal Complaint Female Dx - Course Course Of Treatment: 33 year old female with 2 weeks dysuria and occasional frequency and urgency. Treated by PCP for UTI approximately 3 weeks prior with improvement then return of symptoms. POC UA negative except trace ketones. Urine culture sent. Patient was provided a prescription for Pyridium q8h x 2 days to help with dysuria pending culture results. If culture is negative and her symptoms persist she is to follow up with her PCP. - Differential Dx/Diagnosis Provider Diagnoses: Dysuria Discharge - Sign-Out/Discharge Documenting (check all that apply): Patient Departure All imaging exams completed and their final reports reviewed: No Studies - Discharge Plan Condition: Stable Disposition: HOME Prescriptions: Phenazopyridine TAB* [Pyridium 100 mg TAB*] 100 mg PO TID #6 tab Patient Education Materials: Dysuria (ED) Referrals: Kayla Roy MD [Primary Care Provider] - 3 Days (If no improvement in symptoms.) Additional Instructions: The urine test in the clinic today did not show any evidence of a urinary tract infection. We will send the urine for culture to see if any bacteria grow out. We will contact you if there is evidence of an infection and need for antibiotics. It will take 48-72 hours to get these results. Drink plenty of fluids. Take Pyridium 1 tab every 8 hours for 2 days to help with discomfort. This medication will turn your urine an orange color. Follow up with your primary care provider in 3 days if no improvement in your symptoms. Seek immediate medical attention if you develop fever greater than 100.5 F, have severe abdominal or back pain, persistent vomiting, or any worsening of symptoms. - Billing Disposition and Condition Condition: STABLE Disposition: Home
--- NOTE | 2018-07-17 07:22 | ED ---
Progress - Progress Note Progress Note: Call and inform patient of positive urine culture, and script sent to pharmacy for macrobid. Course/Dx - Course Course Of Treatment: 33 year old female with 2 weeks dysuria and occasional frequency and urgency. Treated by PCP for UTI approximately 3 weeks prior with improvement then return of symptoms. POC UA negative except trace ketones. Urine culture sent. Patient was provided a prescription for Pyridium q8h x 2 days to help with dysuria pending culture results. If culture is negative and her symptoms persist she is to follow up with her PCP. Discharge - Sign-Out/Discharge Documenting (check all that apply): Patient Departure All imaging exams completed and their final reports reviewed: No Studies - Discharge Plan Condition: Stable Disposition: HOME Prescriptions: Nitrofurantoin Monohyd/M-Cryst [Macrobid 100 mg Capsule] 100 mg PO BID #10 cap Phenazopyridine TAB* [Pyridium 100 mg TAB*] 100 mg PO TID #6 tab Patient Education Materials: Dysuria (ED) Referrals: Kayla Roy MD [Primary Care Provider] - 3 Days (If no improvement in symptoms.) Additional Instructions: The urine test in the clinic today did not show any evidence of a urinary tract infection. We will send the urine for culture to see if any bacteria grow out. We will contact you if there is evidence of an infection and need for antibiotics. It will take 48-72 hours to get these results. Drink plenty of fluids. Take Pyridium 1 tab every 8 hours for 2 days to help with discomfort. This medication will turn your urine an orange color. Follow up with your primary care provider in 3 days if no improvement in your symptoms. Seek immediate medical attention if you develop fever greater than 100.5 F, have severe abdominal or back pain, persistent vomiting, or any worsening of symptoms. - Billing Disposition and Condition Condition: STABLE Disposition: Home
== END 2018-07-15 17:36 | disposition home or self-care (01) ==
LOC: UCCORT 15:42
DX: R30.0 Dysuria (principal); Z88.0 Allergy status to penicillin; Z88.8 Allergy status to other drugs, medicaments and biological substances; F90.9 Attention-deficit hyperactivity disorder, unspecified type; Z87.891 Personal history of nicotine dependence
CPT/HCPCS: 81003; 87077; 87086; 87186; 99212; G0463

== ENCOUNTER 2018-08-24 10:26 | Emergency (ER) | payer OTHER ==
--- OUTSIDE RECORDS SUMMARY | 2018-08-24 10:44 | XMS REPORT ---
:1985 External Reference #:[id number] Author Organization [facility] Address [address], [address] [place] [address] Phone [phone] Care Team Providers Name Role Phone Kayla Roy M.D. 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 Primary Care Physician Unavailable Payers Type Date Identification Numbers Payment Provider Subscriber Commercial Policy Number: [id number] [place] [employer] Shefali Harper PayID: [id number] [address] [place] [address] Medicaid Expires: 2017 Policy Number: [id number] Medicaid Shefali Harper PayID: [id number] [address] [place] [address] Problems Date Description Provider Status Onset: 01/11/2016 Insomnia Kayla Roy M.D. Active Onset: 03/21/2017 Gastroduodenitis Earle Stein MD Active Onset: 03/21/2017 Gastroesophageal reflux disease Earle Stein MD Active Onset: 03/21/2017 Constipation Earle Stein MD Active Onset: 10/31/2017 First degree hemorrhoids Earle Stein MD Active Onset: 12/31/2017 Diverticular disease of colon Earle Stein MD Active Onset: 01/14/2018 Anxiety state Kayla Roy M.D. Active Onset: 01/14/2018 Attention-deficit hyperactivity Kayla Roy M.D. Active disorder, unspecified type Onset: 10/27/2015 Nondependent alcohol abuse, Michelle Torres FNP Resolved episodic Resolved: 02/17/2018 Onset: 02/07/2017 Nausea and vomiting Earle Stein MD Resolved Resolved: 02/17/2018 Onset: 07/29/2017 Derangement of knee Billy Calderon M.D. Resolved Resolved: 02/17/2018 Onset: 08/07/2017 Partial tear, knee, lateral Billy Calderon M.D. Resolved collateral ligament Resolved: 02/17/2018 Onset: 08/26/2017 Sprain of ankle Billy Calderon M.D. Resolved Resolved: 02/17/2018 Onset: 10/22/2017 Gastrointestinal tract finding Earle Stein MD Resolved Resolved: 02/17/2018 Onset: 10/22/2017 Right upper quadrant pain Earle Stein MD Resolved Resolved: 02/17/2018 Onset: 10/31/2017 Nausea Earle Stein MD Resolved Resolved: 02/17/2018 Onset: 02/07/2017 Epigastric pain Earle Stein MD Resolved Resolved: 02/17/2018 Onset: 02/07/2017 Digestive symptom Earle Stein MD Resolved Resolved: 02/17/2018 Onset: 10/31/2017 Malaise and fatigue Earle Stein MD Resolved Resolved: 02/17/2018 Onset: 10/31/2017 Flatulence, eructation and gas pain Earle Stein MD Resolved Resolved: 02/17/2018 Onset: 01/27/2018 Abdominal pain Don Berg MD,FACS Resolved Resolved: 02/17/2018 Family History Date Family Member(s) Problem(s) Comments Father Father Alive & Well Mother Mother Alive & Well Maternal Grandmother due to Breast Cancer () Social History Type Date Description Comments Lives With Alone Home Environment Lives Alone Diet Patient follows no dietary restrictions 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 Currently Working Hand Dominance Right-handed Cigarette Use Former Cigarette Smoker 1/2 Pack Daily Quit 3 years ago ETOH Use Has consumed alcohol in the past Smoking Patient is a former smoker Recreational Drug Use Denies Drug Use Daily Caffeine Consumes on average 8oz of energy drinks per day Allergies, Adverse Reactions, Alerts Date Description Reaction Status Severity Comments 02/16/2015 Albuterol active 12/13/2011 Penicillin active 07/25/2017 Augmentin active 07/25/2017 Finasteride active 06/02/2018 Methylphenidate active rash Medications Medication Date Status Form Strength Qnty SIG Indications Ordering Provider Oxycodone-Acetami 07/28 Active Tablets 5-325mg 10tab take one M26.602 Jessica sameerahen s tablet by jennifer Choudhury PNP-BC, every 8 [employer], hours for Ibclc pain as needed Reference #: [id number] Amphetamine-Dextr 06/02 Active Caps ER 10mg 30cap 1 cap by F90.9 Glenn oamphet 24HR s mouth MD Luli every morning reference #:[id number] Escitalopram 12/10 Active Tablets 5mg 30tab 1 by mouth F41.9 Glenn Oxalate s every day MD Luli Hydroxyzine HCL 12/10 Active Tablets 25mg 45tab 1-2 tabs F41.9 Manuela, s by mouth Kayla, three M.D. times a day as needed anxiety Flovent HFA Active Aerosol 44mcg/Act 2 puff Unknown /0000 twice a day prn Prednisone 07/28 Hx Tablets 10mg QS 5 tabs M26.602 Jessica, today, Macey, - then 4 PNP-BC, 08/04 tabs [employer], tomorrow, Ibclc 3 tabs day 3, 2 tabs day 4, and 1 tab day 5 Sulfamethoxazole/ 06/23 Hx Tablets 800-160mg 6tabs 1 tab by R30.0 Manuela Trimethoprim mouth Kayla, - twice a M.D. 07/28 day x 3 days Methylphenidate 04/10 Hx Tablets ER 36mg 30tab 1 tab by F90.9 Manuela, HCL ER s mouth Kayla, - every M.D. 06/02 Reference #: [id number] Methylphenidate 02/18 Hx Tablets ER 18mg 30tab 1 tab by F90.9 Manuela, HCL ER s mouth Kayla, - every M.D. 04/10 Reference #: [id number] Methylphenidate 12/31 Hx Tablets 5mg 30tab take 1 tab R41.840 Manuela, HCL s in in the Kayla, - morning M.D. 02/18 Reference #: [id number] Citroma 12/03 Hx Solution 1.745GM/3 1unit 1 bottle R93.3 Young 0ML s by mouth MD Lorne once Citroma 12/03 Hx Solution 1.745GM/3 1unit 1 bottle R93.3 0ML s by jennifer Stein MD once Dulcolax 12/[address] 5mg 4tabs 4 tablets R93.3 taken a MD Lorne 8pm the day before the procedure Peg-[id number]/Electrol 12/03 Hx Solution 236gm 1unit please R93.3 Rec s drink 11/11 MD Lorne evening before and drink / morning of the procedure (1 cup every 15 minutes) Ondansetron HCL 10/31 Hx Tablets 4mg 30tab 1 tab by R11.0 s jennifer Stein MD - every 8 12/10 hours needed Naproxen 07/29 Hx Tablets 500mg 60tab 1 tab by Kvng s mouth , twice a Billy, day M.D. Cyclobenzaprine 07/29 Hx Tablets 5mg 15tab 1 tab by Kvng s mouth , - three Billy, 02/18 times a M.D. 2017 as needed for spasm Ondansetron HCL 02/07 Hx Tablets 4mg 30tab 1 tab by R11.2 s jennifer Stein MD - every 8 07/29 hours needed for nausea Omeprazole 01/[address] 40mg 30cap Take 1 R10.13 s capsule by jennifer Garza M.D. daily 30 minutes before morning meal Naproxen 01/16 Hx Tablets 500mg 45tab 500 mg by M25.511 Manuela s mouth Kayla, - every 12 M.D. 01/20 hours prn take with food Cyclobenzaprine 01/10 Hx Tablets 10mg 45tab Take 1 M62.838 Manuela, s Tablet By Kayla, - Mouth 3 M.D. 01/20 Times Day as Needed Propranolol HCL 12/26 Hx Tablets 40mg 60tab 1 tab by R51 Brian, s mouth Jenniferl - twice a eigh, [employer] Butalbital-Acetam 12/26 Hx Tablets 50-325mg 30tab one - two R51 Clanthony, s tablets Jenniferl - every four eigh, [employer] 01/20 hours needed for headache - no more than 6 tablets in a day Nasonex 10/27 Hx Suspension 50mcg/Act 1unit one spray J00 Cl s each Jenniferl - nostril eigh, [employer] 02/21 twice a day Metronidazole 10/24 Hx Tablets 500mg 14tab 500 mg by Manuela, s mouth q12 Kayla, - x 7 days M.D. 12/26 Ambien 00 Hx Tablets 5mg 30tab take one G47.00 Manuela, / s pill each Kayla, - night as M.D. 01/20 needed for sleep - Reference #: [id number] Pantoprazole Hx Tablets DR 40mg 1 po daily Unknown Sodium /0000 Ciprofloxacin HCL 00 Hx Tablets 500mg 1 po bid Unknown /0000 Metronidazole 00 Hx Tablets 500mg 1 po tid Unknown /0000 Lexapro Hx Tablets 5mg 1 by mouth Unknown /0000 every day - for 2 01/14 weeks 2 tabs daily Lexapro 00 Hx Tablets 5mg 1 tabl by Unknown /0000 mouth - every day 02/18 Hydrocodone-Aceta Hx Tablets 5-325mg Take 1 Unknown minophen /0000 Tablet By - Mouth 06/02 Every Hours as Needed For Pain. May Use 2 Tab Immunizations CPT Code Status Date Vaccine Lot # [id number] Given 07/25/2017 Influenza Virus Vaccine Quadrivalent Iiv4 Split [id number] Preser Free Id [id number] Given 10/24/2015 Influenza Vaccine (Fluzone) Age 3 And Older [id number] Given 09/01/2014 flu vaccination 59476 Given 08/19/2013 flu vaccination 19429 Given 06/03/2013 Tdap injection 32984 Given 08/21/2010 flu vaccination Vital Signs Date Vital Result Comment 07/28/2018 BP Systolic 110 mmHg BP Diastolic 68 mmHg Body Temperature 98.1 F Heart Rate 64 /min Respiratory Rate 17 /min Height 64 inches 5'4" Weight 147.00 lb BMI (Body Mass Index) 25.2 kg/m2 BSA (Body Surface Area) 1.72 m2 Tracy body weight in kilograms 54 O2 % BldC Oximetry 98 % 06/23/2018 BP Systolic Sitting Left Arm 100 mmHg BP Diastolic Sitting Left Arm 70 mmHg Body Temperature 98.0 F Height 64 inches 5'4" Weight 153.50 lb BMI (Body Mass Index) 26.3 kg/m2 BSA (Body Surface Area) 1.75 m2 Tracy body weight in kilograms 54 06/02/2018 BP Systolic Sitting Left Arm 96 mmHg BP Diastolic Sitting Left Arm 58 mmHg Body Temperature 98.2 F Heart Rate 54 /min Height 64 inches 5'4" Weight 152.12 lb BMI (Body Mass Index) 26.1 kg/m2 BSA (Body Surface Area) 1.74 m2 Tracy body weight in kilograms 54 04/10/2018 BP Systolic 106 mmHg BP Diastolic 62 mmHg Body Temperature 98.0 F Heart Rate 66 /min Height 64 inches 5'4" Weight 151.00 lb BMI (Body Mass Index) 25.9 kg/m2 BSA (Body Surface Area) 1.74 m2 Tracy body weight in kilograms 54 O2 % BldC Oximetry 98 % 03/30/2018 BP Systolic 107 mmHg BP Diastolic 69 mmHg Heart Rate 50 /min Height 64 inches 5'4" Weight 147.00 lb BMI (Body Mass Index) 25.2 kg/m2 BSA (Body Surface Area) 1.72 m2 Tracy body weight in kilograms 54 03/10/2018 BP Systolic 99 mmHg BP Diastolic 61 mmHg Heart Rate 56 /min Height 64 inches 5'4" Weight 146.00 lb BMI (Body Mass Index) 25.1 kg/m2 BSA (Body Surface Area) 1.71 m2 Tracy body weight in kilograms 54 02/18/2018 BP Systolic Sitting Left Arm 104 mmHg BP Diastolic Sitting Left Arm 70 mmHg Height 64 inches 5'4" Weight 147.00 lb BMI (Body Mass Index) 25.2 kg/m2 BSA (Body Surface Area) 1.72 m2 Tracy body weight in kilograms 54 01/27/2018 BP Systolic 108 mmHg BP Diastolic 77 mmHg Body Temperature 97.6 F Height 69 inches 5'9" Weight 152.00 lb BMI (Body Mass Index) 22.4 kg/m2 BSA (Body Surface Area) 1.84 m2 Tracy body weight in kilograms 66 01/14/2018 BP Systolic Sitting Left Arm 102 mmHg BP Diastolic Sitting Left Arm 68 mmHg Height 69 inches 5'9" Weight 152.12 lb BMI (Body Mass Index) 22.5 kg/m2 BSA (Body Surface Area) 1.84 m2 Tracy body weight in kilograms 66 12/31/2017 BP Systolic Sitting Left Arm 110 mmHg BP Diastolic Sitting Left Arm 68 mmHg Heart Rate 53 /min Respiratory Rate 16 /min Height 64 inches 5'4" Weight 150.00 lb BMI (Body Mass Index) 25.7 kg/m2 BSA (Body Surface Area) 1.73 m2 Tracy body weight in kilograms 54 12/10/2017 BP Systolic Sitting Left Arm 102 mmHg BP Diastolic Sitting Left Arm 68 mmHg Height 64 inches 5'4" Weight 143.38 lb BMI (Body Mass Index) 24.6 kg/m2 BSA (Body Surface Area) 1.70 m2 Tracy body weight in kilograms 54 12/03/2017 BP Systolic Sitting Left Arm 90 mmHg BP Diastolic Sitting Left Arm 58 mmHg Heart Rate 44 /min Respiratory Rate 16 /min Height 64 inches 5'4" 5'4 pER pATIENT Weight 146.00 lb BMI (Body Mass Index) 25.1 kg/m2 BSA (Body Surface Area) 1.71 m2 Tracy body weight in kilograms 54 11/25/2017 BP Systolic 128 mmHg BP Diastolic 88 mmHg Height 64 inches 5'4" 5'4 pER pATIENT Weight 135.00 lb BMI (Body Mass Index) 23.2 kg/m2 BSA (Body Surface Area) 1.66 m2 Tracy body weight in kilograms 54 11/04/2017 BP Systolic 108 mmHg BP Diastolic 70 mmHg Height 64 inches 5'4" 5'4 pER pATIENT Weight 132.00 lb BMI (Body Mass Index) 22.7 kg/m2 BSA (Body Surface Area) 1.64 m2 Tracy body weight in kilograms 54 10/31/2017 BP Systolic Sitting Left Arm 112 mmHg BP Diastolic Sitting Left Arm 62 mmHg Heart Rate 59 /min Respiratory Rate 16 /min Height 64 inches 5'4" 5'4 pER pATIENT Weight 132.00 lb BMI (Body Mass Index) 22.7 kg/m2 BSA (Body Surface Area) 1.64 m2 Tracy body weight in kilograms 54 10/24/2017 BP Systolic 104 mmHg BP Diastolic 60 mmHg Body Temperature 97.9 F Heart Rate 58 /min Height 64 inches 5'4" 5'4 pER pATIENT Weight 130.00 lb BMI (Body Mass Index) 22.3 kg/m2 BSA (Body Surface Area) 1.63 m2 Tracy body weight in kilograms 54 O2 % BldC Oximetry 97 % 10/22/2017 BP Systolic Sitting Left Arm 140 mmHg BP Diastolic Sitting Left Arm 80 mmHg Heart Rate 82 /min Respiratory Rate 16 /min Height 64 inches 5'4" 5'4 pER pATIENT Weight 130.00 lb BMI (Body Mass Index) 22.3 kg/m2 BSA (Body Surface Area) 1.63 m2 Tracy body weight in kilograms 54 09/30/2017 BP Systolic Sitting Right Arm 138 mmHg BP Diastolic Sitting Right Arm 66 mmHg Body Temperature 97.9 F Heart Rate 52 /min Height 64 inches 5'4" 5'4 pER pATIENT Weight 139.50 lb BMI (Body Mass Index) 23.9 kg/m2 BSA (Body Surface Area) 1.68 m2 Tracy body weight in kilograms 54 O2 % BldC Oximetry 97 % 07/25/2017 BP Systolic 96 mmHg BP Diastolic 62 mmHg Body Temperature 97.6 F Heart Rate 46 /min Height 64 inches 5'4" 5'4 pER pATIENT Weight 148.00 lb BMI (Body Mass Index) 25.4 kg/m2 BSA (Body Surface Area) 1.72 m2 Tracy body weight in kilograms 54 O2 % BldC Oximetry 98 % 03/21/2017 BP Systolic Sitting Left Arm 106 mmHg BP Diastolic Sitting Left Arm 68 mmHg Heart Rate 58 /min Respiratory Rate 16 /min Height 64 inches 5'4" 5'4 pER pATIENT Weight 157.00 lb BMI (Body Mass Index) 26.9 kg/m2 BSA (Body Surface Area) 1.77 m2 Tracy body weight in kilograms 54 02/07/2017 BP Systolic 98 mmHg BP Diastolic 70 mmHg Heart Rate 90 /min Weight 155.00 lb 01/20/2017 BP Systolic 90 mmHg BP Diastolic 50 mmHg Body Temperature 98.3 F Heart Rate 54 /min Respiratory Rate 16 /min Height 64.5 inches 5'4.50" Weight 163.00 lb BMI (Body Mass Index) 27.5 kg/m2 BSA (Body Surface Area) 1.80 m2 O2 % BldC Oximetry 97 % 04/23/2016 BP Systolic Sitting Left Arm 108 mmHg BP Diastolic Sitting Left Arm 66 mmHg Heart Rate 54 /min Height 64.5 inches 5'4.50" Weight 161.12 lb BMI (Body Mass Index) 27.2 kg/m2 BSA (Body Surface Area) 1.79 m2 02/22/2016 BP Systolic Sitting Left Arm 112 mmHg BP Diastolic Sitting Left Arm 74 mmHg Heart Rate 60 /min Respiratory Rate 19 /min Height 64.5 inches 5'4.50" Weight 160.00 lb BMI (Body Mass Index) 27.0 kg/m2 BSA (Body Surface Area) 1.79 m2 01/17/2016 BP Systolic 104 mmHg BP Diastolic 62 mmHg Height 64.5 inches 5'4.50" Weight 158.00 lb BMI (Body Mass Index) 26.7 kg/m2 BSA (Body Surface Area) 1.78 m2 01/11/2016 BP Systolic Sitting Right Arm 98 mmHg BP Diastolic Sitting Right Arm 50 mmHg Heart Rate 58 /min Weight 159.00 lb 12/26/2015 BP Systolic 112 mmHg BP Diastolic 64 mmHg Height 64.5 inches 5'4.50" Weight 156.00 lb BMI (Body Mass Index) 26.4 kg/m2 BSA (Body Surface Area) 1.77 m2 10/27/2015 BP Systolic 104 mmHg BP Diastolic 64 mmHg Body Temperature 98.1 F Height 64.5 inches 5'4.50" Weight 154.12 lb BMI (Body Mass Index) 26.0 kg/m2 BSA (Body Surface Area) 1.76 m2 10/24/2015 Heart Rate 38 /min Respiratory Rate 16 /min Height 64.5 inches 5'4.50" Weight 158.25 lb BMI (Body Mass Index) 26.7 kg/m2 BSA (Body Surface Area) 1.78 m2 Results Test Date Test Result H/L Range Note Urine Culture 07/28/2018 Urine Culture URETHRAL PAULINO 1 Quantity 10,000 - 50,000 <SEE NOTE> 1, 2 Urine Culture And 07/15/2018 Urine Culture SEE RESULT BELOW 3, 4 Sensitivities Poc Urinalysis 07/15/2018 Poc Glucose, Negative Negative Urine Poc Bilirubin, Urine Negative Negative Poc Ketone, Urine Trace Negative Poc Specific Reynolds, Urine 1.015 1.010-1.030 Poc Blood, Urine Negative Negative Poc pH, Urine 6.0 5-9 Poc Protein, Urine Negative Negative Poc Urobilinogen, Urine 0.2 Negative Poc Nitrite, Urine Negative Negative Poc Leukocytes, Urine Negative Negative Poc Color, Urine Yellow Poc Clarity, Urine Clear 5 Urine Culture 06/23/2018 Urine Culture ENTEROBACTER DORCAS <SEE NOTE> 6 Quantity 10,000 - 50,000 <SEE NOTE> 7 [id number] 06/23/2018 Nitrofurantoin 64 Trimethoprim/Sulfamethoxazole <=20 Cefazolin <=4 Ciprofloxacin <=0.25 Piperacillin/Tazobactam <=4 Ceftazidime <=1 Ceftriaxone <=1 Cefepime <=1 Levofloxacin <=0.12 Imipenem <=0.25 Gentamicin <=1 Tobramycin <=1 Urine Dipstick 06/23/2018 Ua Color yellow Yellow Ua Clarity clear Clear Ua Leuko negative Negative Ua Nitrite negative Negative Ua Urobilinogen negative Low 0.2 - 1.0 E.U./dL Ua Protein negative Negative Ua PH 5. Low 6.5-7.5 Ua Blood negative Negative Ua Specific Reynolds 1.030 1.010-1.030 Ua Ketones negative Negative Ua Bilirubin negative Negative Ua Glucose negative Negative CBS W/Automated Diff 03/13/2018 White Blood Count 7.2 K/uL 3.1-10.7 8 Red Blood Count 4.16 M/uL 3.90-5.40 8 Hemoglobin 13.8 gm/dL 11.6-15.8 8 Hematocrit 40.2 % 36.0-46.1 8 Mean Cell Volume 96.6 fl 80.9-99.0 8 Mean Corpuscular HGB 33.2 pg High 25.9-32.7 8 Mean Corpuscular HGB Conc 34.3 g/dL 30.8-34.3 8 Platelet Count 174 K/uL 155-360 8 Red Cell Distri Width SD 46.1 fl 3-47 8 Red Cell Distri Width %CV 13.5 % 11.7-14.4 8 Mean Platelet Volume 10.7 fL 8.9-12.4 8 Neut% 53.6 % 40.4-72.8 8 Lymph % 37.7 % 20.0-42.0 8 Yates % 7.6 % 4.3-13.2 8 Eo% 0.8 % 0.0-6.6 8 Bas% 0.3 % 0.0-1.1 8 Neut# 3.86 K/uL 1.8-7.0 8 Lymph # 2.72 K/uL 1.0-4.0 8 Yates # 0.55 K/uL 0.3-0.9 8 Eos # 0.06 K/uL 0.0-0.5 8 Baso # 0.02 K/uL 0.0-0.1 8 Comprehensive Metabolic Panel 03/13/2018 Glucose 89 mg/dL 74-106 8 BUN 10 mg/dL 7-18 8 Creatinine 0.7 mg/dL 0.6-1.3 8 Glom Filtration Rate, Estimate >60 mL/min >60 8 If >60 mL/min >60 8, 9 BUN/Creat 14.2 ratio 8 Sodium 139 mmol/L 136-145 8 Potassium 3.7 mmol/L 3.5-5.1 8 Chloride 107 mmol/L 98-107 8 Carbon Dioxide 28 mmol/L 21-32 8 Anion Gap 4 mEq/L Low 8-16 8 Calcium 8.9 mg/dL 8.5-10.1 8 Total Protein 7.8 g/dL 6.4-8.2 8 Albumin 4.2 g/dL 3.4-5.0 8 Globulin 3.6 g/dL 1.9-4.3 8 Alb/Glob 1.2 ratio 8 Bilirubin,Total 0.8 mg/dL 0.2-1.0 8 Sgot/Ast 20 U/L 15-37 8 SGPT/Alt 27 U/L 12-78 8 Alkaline Phosphatase 56 U/L 45-117 8 Laboratory test finding 03/13/2018 Lipase 85 U/L 56-289 8 Laboratory test finding 02/25/2018 Poc , Urine Negative Negative 10 CBC Auto Diff 02/25/2018 White Blood Count 6.1 10^3/uL 3.5-10.8 11 Red Blood Count 4.03 10^6/uL 4.0-5.4 11 Hemoglobin 13.0 g/dL 12.0-16.0 11 Hematocrit 38 % 35-47 11 Mean Corpuscular Volume 95 fL 80-97 11 Mean Corpuscular Hemoglobin 32 pg High 27-31 11 Mean Corpuscular HGB Conc 34 g/dL 31-36 11 Red Cell Distribution Width 13 % 10.5-15 11 Platelet Count 156 10^3/uL 150-450 11 Mean Platelet Volume 9.5 um3 7.4-10.4 11 Abs Neutrophils 3.6 10^3/uL 1.5-7.7 11 Abs Lymphocytes 2.0 10^3/uL 1.0-4.8 11 Abs Monocytes 0.5 10^3/uL 0-0.8 11 Abs Eosinophils 0.1 10^3/uL 0-0.6 11 Abs Basophils 0 10^3/uL 0-0.2 11 Abs Nucleated RBC 0 10^3/uL 11 Granulocyte % 58.4 % 38-83 11 Lymphocyte % 32.3 % 25-47 11 Monocyte % 7.8 % High 0-7 11 Eosinophil % 1.1 % 0-6 11 Basophil % 0.4 % 0-2 11 Nucleated Red Blood Cells % 0 11 Comp Metabolic Panel 02/25/2018 Sodium 139 mmol/L 139-145 11 Potassium 4.3 mmol/L 3.5-5.0 11 Co2 Carbon Dioxide 22 mmol/L 22-32 11 Calcium 8.8 mg/dL 8.6-10.3 11 Albumin 3.9 g/dL 3.2-5.2 11 Total Bilirubin 0.50 mg/dL 0.2-1.0 11 Chloride 112 mmol/L High 101-111 11 Anion Gap 5 mmol/L 2-11 11 Glucose 94 mg/dL 70-100 11 Blood Urea Nitrogen 11 mg/dL 6-24 11 Creatinine 0.66 mg/dL 0.51-0.95 11 BUN/Creatinine Ratio 16.7 8-20 11 Total Protein 5.8 g/dL Low 6.4-8.9 11 Globulin 1.9 g/dL Low 2-4 11 Albumin/Globulin Ratio 2.1 1-3 11 Alkaline Phosphatase 46 U/L 34-104 11 Alt 18 U/L 7-52 11 Ast 15 U/L 13-39 11 Egfr Non- 103.1 >60 11 Egfr 132.6 >60 11, 12 Poc Urinalysis 02/25/2018 Poc Glucose, Urine Negative Negative Poc Bilirubin, Urine Negative Negative Poc Ketone, Urine Negative Negative Poc Specific Reynolds, Urine 1.020 1.010-1.030 Poc Blood, Urine Negative Negative Poc pH, Urine 7.5 5-9 Poc Protein, Urine Negative Negative Poc Urobilinogen, Urine 0.2 Negative Poc Nitrite, Urine Negative Negative Poc Leukocytes, Urine Negative Negative Poc Color, Urine Yellow Poc Clarity, Urine Cloudy 13 Laboratory test 02/25/2018 Lipase 18 U/L 11.0-82.0 11, 14 finding Laboratory test 12/18/2017 Urine HCG NEGATIVE Negative 15, 16 finding (Qualitative) Laboratory test 10/31/2017 Prealbumin 39.6 mg/dL 20.0-40.0 17 finding CBS W/Automated Diff 10/31/2017 White Blood Count 8.3 K/uL 3.1-10.7 17 Red Blood Count 4.39 M/uL 3.90-5.40 17 Hemoglobin 14.4 gm/dL 11.6-15.8 17 Hematocrit 41.5 % 36.0-46.1 17 Mean Cell Volume 94.5 fl 80.9-99.0 17 Mean Corpuscular HGB 32.8 pg High 25.9-32.7 17 Mean Corpuscular HGB Conc 34.7 g/dL High 30.8-34.3 17 Platelet Count 230 K/uL 155-360 17 Red Cell Distri Width SD 44.2 fl 3-47 17 Red Cell Distri Width %CV 13.2 % 11.7-14.4 17 Mean Platelet Volume 11.6 fL 8.9-12.4 17 Neut% 57.8 % 40.4-72.8 17 Lymph % 34.8 % 20.0-42.0 17 Yates % 5.9 % 4.3-13.2 17 Eo% 1.1 % 0.0-6.6 17 Bas% 0.4 % 0.0-1.1 17 Neut# 4.79 K/uL 1.8-7.0 17 Lymph # 2.88 K/uL 1.0-4.0 17 Yates # 0.49 K/uL 0.3-0.9 17 Eos # 0.09 K/uL 0.0-0.5 17 Baso # 0.03 K/uL 0.0-0.1 17 Laboratory test finding 10/31/2017 Sedimentation Rate 9 mm/hr 0-20 17, 18 Comprehensive Metabolic Panel 10/31/2017 Glucose 86 mg/dL 74-106 17 BUN 15 mg/dL 7-18 17 Creatinine 0.7 mg/dL 0.6-1.3 17 Glom Filtration Rate, Estimate >60 mL/min >60 17 If >60 mL/min >60 17, 19 BUN/Creat 21.4 ratio 17 Sodium 137 mmol/L 136-145 17 Potassium 3.8 mmol/L 3.5-5.1 17 Chloride 104 mmol/L 98-107 17 Carbon Dioxide 28 mmol/L 21-32 17 Anion Gap 5 mEq/L Low 8-16 17 Calcium 9.5 mg/dL 8.5-10.1 17 Total Protein 7.8 g/dL 6.4-8.2 17 Albumin 4.0 g/dL 3.4-5.0 17 Globulin 3.8 g/dL 1.9-4.3 17 Alb/Glob 1.1 ratio 17 Bilirubin,Total 0.4 mg/dL 0.2-1.0 17 Sgot/Ast 23 U/L 15-37 17 SGPT/Alt 39 U/L 12-78 17 Alkaline Phosphatase 46 U/L 45-117 17 Laboratory test finding 10/31/2017 C-Reactive Protein,Quant < 2.9 mg/L < 3.0 17 Comprehensive Metabolic 10/23/2017 Glucose 89 mg/dL 74-106 20 Panel BUN 5 mg/dL Low 7-18 20 Creatinine 0.8 mg/dL 0.6-1.3 20 Glom Filtration Rate, Estimate >60 mL/min >60 20 If >60 mL/min >60 20, 21 BUN/Creat 6.2 ratio 20 Sodium 143 mmol/L 136-145 20 Potassium 4.2 mmol/L 3.5-5.1 20 Chloride 112 mmol/L High 98-107 20 Carbon Dioxide 25 mmol/L 21-32 20 Anion Gap 6 mEq/L Low 8-16 20 Calcium 8.5 mg/dL 8.5-10.1 20 Total Protein 5.9 g/dL Low 6.4-8.2 20 Albumin 3.1 g/dL Low 3.4-5.0 20 Globulin 2.8 g/dL 1.9-4.3 20 Alb/Glob 1.1 ratio 20 Bilirubin,Total 0.5 mg/dL 0.2-1.0 20 Sgot/Ast 18 U/L 15-37 20 SGPT/Alt 30 U/L 12-78 20 Alkaline Phosphatase 28 U/L Low 45-117 20 Ua RFX Micro & Culture II 10/22/2017 Urine Color YELLOW Yellow 22 Urine Clarity CLEAR Clear 22 Urine Glucose - Dipstick NEGATIVE mg/dL Negative 22 Urine Bilirubin - Dipstick NEGATIVE Negative 22 Urine Ketone NEGATIVE mg/dL Negative 22 Urine Specific Reynolds 1.020 1.010-1.030 22 Urine Blood NEGATIVE Negative 22 Urine PH 7.5 6.5-7.5 22 Urine Protein - Dipstick NEGATIVE mg/dL Negative 22 Urine Urobilinogen - Dipstick 0.2 E.U./dL 0.2-1.0 22 Urine Nitrite - Dipstick NEGATIVE Negative 22 Urine Leuk Esterase NEGATIVE Negative 22 Source: URINE, CLEAN CAT <SEE NOTE> 22, 23 Blood Culture 10/22/2017 Blood Culture Aerobic NO GROWTH: FINAL <SEE NOTE> 22, 24 Blood Culture Anaerobic NO GROWTH: FINAL <SEE NOTE> 22, 25 Laboratory test finding 10/22/2017 Sedimentation Rate 15 mm/hr 0-20 22, 26 Drugs Of Abuse-Urine Screen 7 10/22/2017 Amphetamines (Urine) Negative 27 Barbiturates (Urine) Negative 27 Benzodiazepines (Urine) POSITIVE High 27 Cannabinoids (Urine) Negative 27 Cocaine Metabolite (Urine) Negative 27 Methadone (Urine) Negative 27 Opiates (Urine) POSITIVE 27 Urine Cutoffs * 27, 28 Blood Culture 10/22/2017 Blood Culture Aerobic NO GROWTH: FINAL <SEE NOTE> , 29 Blood Culture Anaerobic NO GROWTH: FINAL <SEE NOTE> 27, 30 Comprehensive Metabolic Panel 10/22/2017 Glucose 82 mg/dL 74-106 31 BUN 14 mg/dL 7-18 31 Creatinine 0.9 mg/dL 0.6-1.3 31 Glom Filtration Rate, Estimate >60 mL/min >60 31 If >60 mL/min >60 31, 32 BUN/Creat 15.5 ratio 31 Sodium 141 mmol/L 136-145 31 Potassium 3.9 mmol/L 3.5-5.1 31 Chloride 108 mmol/L High 98-107 31 Carbon Dioxide 27 mmol/L 21-32 31 Anion Gap 6 mEq/L Low 8-16 31 Calcium 9.7 mg/dL 8.5-10.1 31 Total Protein 8.0 g/dL 6.4-8.2 31 Albumin 4.1 g/dL 3.4-5.0 31 Globulin 3.9 g/dL 1.9-4.3 31 Alb/Glob 1.1 ratio 31 Bilirubin,Total 0.4 mg/dL 0.2-1.0 31 Sgot/Ast 28 U/L 15-37 31 SGPT/Alt 43 U/L 12-78 31 Alkaline Phosphatase 41 U/L Low 45-117 31 CBS W/Automated Diff 10/22/2017 White Blood Count 6.0 K/uL 3.1-10.7 31 Red Blood Count 4.46 M/uL 3.90-5.40 31 Hemoglobin 14.5 gm/dL 11.6-15.8 31 Hematocrit 41.3 % 36.0-46.1 31 Mean Cell Volume 92.6 fl 80.9-99.0 31 Mean Corpuscular HGB 32.5 pg 25.9-32.7 31 Mean Corpuscular HGB Conc 35.1 g/dL High 30.8-34.3 31 Platelet Count 264 K/uL 155-360 31 Red Cell Distri Width SD 41.6 fl 3-47 31 Red Cell Distri Width %CV 12.7 % 11.7-14.4 31 Mean Platelet Volume 11.1 fL 8.9-12.4 31 Neut% 56.1 % 40.4-72.8 31 Lymph % 34.6 % 20.0-42.0 31 Yates % 8.2 % 4.3-13.2 31 Eo% 0.8 % 0.0-6.6 31 Bas% 0.3 % 0.0-1.1 31 Neut# 3.34 K/uL 1.8-7.0 31 Lymph # 2.06 K/uL 1.0-4.0 31 Yates # 0.49 K/uL 0.3-0.9 31 Eos # 0.05 K/uL 0.0-0.5 31 Baso # 0.02 K/uL 0.0-0.1 31 Lactic Acid 10/22/2017 Lactic Acid 1.2 mmol/L 0.4-1.9 31 Lab Reflex >2.0 for Sepsis? Y 31 Laboratory test finding 10/22/2017 Lipase 415 U/L High 56-289 31 HCG,Serum (Qualitative) NEGATIVE (Negative) 31 C-Reactive Protein,Quant 5.0 mg/L High <3.0 31 Globulin Ser 10/15/2017 Globulin Ser Calc-mCnc 3.6 1.9-4.3 Calc-mCnc Laminaribioside IgG 10/15/2017 Laminaribioside IgG Ab 14 0-60 Ab [Units/volume] in [Units/volume] in Serum or Serum or Plasma by Immunoassay Mannobioside IgG Ab 10/15/2017 Mannobioside IgG Ab 34 0-100 [Units/volume] in [Units/volume] in Serum or Tez Serum or Plasma by Immunoassay Potassium SerPl-sCnc 10/15/2017 Potassium SerPl-sCnc 3.5 3.5-5.1 RDW RBC Auto-Rto 10/15/2017 RDW RBC Auto-Rto 12.2 11.7-14.4 Serum atypical 10/15/2017 Serum atypical Negative Negative perinuclear perinuclear neutrophil neutrophil cytoplasmic antibody cytoplasmic detection by immunofluorescence Serum carbon dioxide 10/15/2017 Serum carbon dioxide 23 21-32 measurement measurement Serum or plasma 10/15/2017 Serum or plasma 3.2 3.4-5.0 albumin measurement albumin measurement (mass/volume) (mass/volume) Serum or plasma 10/15/2017 Serum or plasma 40 Low 45-117 alkaline phosphatase alkaline phosphatase measurement ( measurement (enzymatic activity/volume) Serum or plasma 10/15/2017 Serum or plasma 12 Low 15-37 aspartate aspartate aminotransferase aminotransferase measure measurement (enzymatic activity/volume) Serum or plasma 10/15/2017 Serum or plasma 8.7 8.5-10.1 calcium measurement calcium measurement (mass/volume) (mass/volume) Serum or plasma 10/15/2017 Serum or plasma 0.7 0.6-1.3 creatinine creatinine measurement measurement (mass/volume) (mass/volum Serum or plasma 10/15/2017 Serum or plasma 82 74-106 glucose measurement glucose measurement (mass/volume) (mass/volume) Serum or plasma 10/15/2017 Serum or plasma 6.8 6.4-8.2 protein measurement protein measurement (mass/volume) (mass/volume) Serum or plasma 10/15/2017 Serum or plasma total 0.7 0.2-1.0 total bilirubin bilirubin measurement measurement (mass/ (mass/volume) Serum or plasma urea 10/15/2017 Serum or plasma urea 9 7-18 nitrogen measurement nitrogen measurement (mass/vo (mass/volume) Serum or plasma urea 10/15/2017 Serum or plasma urea 12.8 nitrogen/creatinine nitrogen/creatinine mass rati mass ratio Serum sodium 10/15/2017 Serum sodium 141 136-145 measurement measurement Unloinc 10/15/2017 Unloinc Pattern is not suggestive of Inflammatory Bowel Disease Lactic Acid 10/15/2017 Lactic Acid 1.4 mmol/L 0.4-1.9 33 Lab Reflex >2.0 for Sepsis? Y 33 Serum or plasma lactate 10/15/2017 Serum or plasma lactate 1.4 0.4-1.9 measurement (moles/volume) measurement (moles/volume) CBC 10/15/2017 White Blood Count 7.7 K/uL 3.1-10.7 34 Red Blood Count 3.52 M/uL Low 3.90-5.40 34 Hemoglobin 11.6 gm/dL 11.6-15.8 34 Hematocrit 32.5 % Low 36.0-46.1 34 Mean Cell Volume 92.3 fl 80.9-99.0 34 Mean Corpuscular HGB 33.0 pg High 25.9-32.7 34 Mean Corpuscular HGB Conc 35.7 g/dL High 30.8-34.3 34 Platelet Count 126 K/uL Low 155-360 34 Red Cell Distri Width %CV 12.2 % 11.7-14.4 34 Mean Platelet Volume 10.9 fL 8.9-12.4 34 Comprehensive Metabolic Panel 10/15/2017 Glucose 82 mg/dL 74-106 34 BUN 9 mg/dL 7-18 34 Creatinine 0.7 mg/dL 0.6-1.3 34 Glom Filtration Rate, Estimate >60 mL/min >60 34 If >60 mL/min >60 34, 35 BUN/Creat 12.8 ratio 34 Sodium 141 mmol/L 136-145 34 Potassium 3.5 mmol/L 3.5-5.1 34 Chloride 109 mmol/L High 98-107 34 Carbon Dioxide 23 mmol/L 21-32 34 Anion Gap 9 mEq/L 8-16 34 Calcium 8.7 mg/dL 8.5-10.1 34 Total Protein 6.8 g/dL 6.4-8.2 34 Albumin 3.2 g/dL Low 3.4-5.0 34 Globulin 3.6 g/dL 1.9-4.3 34 Alb/Glob 0.9 ratio 34 Bilirubin,Total 0.7 mg/dL 0.2-1.0 34 Sgot/Ast 12 U/L Low 15-37 34, 36 SGPT/Alt 16 U/L 12-78 34 Alkaline Phosphatase 40 U/L Low 45-117 34 Laboratory test finding 10/15/2017 Cea 0.4 ng/mL 34, 37 Laboratory test finding 10/15/2017 C-Reactive 105.0 mg/L High <3.0 34 Protein,Quant IBD Expanded Panel 10/15/2017 Say 8 units 0-50 34, 38 Acca 15 units 0-90 34, 39 Alca 14 units 0-60 34, 40 Amca 34 units 0-100 34, 41 Atypical pANCA (IBD Exanded) Negative Negative 34 Comments (IBD Expanded) (SEE NOTE) 34, 42 Laboratory test finding 10/15/2017 Complement C4, Serum 36 mg/dL 14-44 34 C1 Esterase Inhibitor 26 mg/dL 21-39 34 C1 Esterase Inhibitor Function 104 %meanno . 34, 43 Alt SerPl-cCnc 10/15/2017 Alt SerPl-cCnc 16 12-78 Albumin/Glob SerPl 10/15/2017 Albumin/Glob SerPl 0.9 Anion Gap SerPl-sCnc 10/15/2017 Anion Gap SerPl-sCnc 9 8-16 Automated blood 10/15/2017 Automated blood 32.5 36.0-46.1 hematocrit (volume hematocrit (volume fraction) fraction) Chloride SerPl-sCnc 10/15/2017 Chloride SerPl-sCnc 109 High 98-107 Chitobioside IgA Ab 10/15/2017 Chitobioside IgA Ab 15 0-90 [Units/volume] in [Units/volume] in Serum or Tez Serum or Plasma by Immunoassay C1-esterase activity 10/15/2017 C1-esterase activity 104 . ser ser Blood leukocytes 10/15/2017 Blood leukocytes 7.7 3.1-10.7 automated count automated count (number/volume) (number/volume) Blood hemoglobin 10/15/2017 Blood hemoglobin 11.6 11.6-15.8 measurement measurement (mass/volume) (mass/volume) Blood erythrocytes 10/15/2017 Blood erythrocytes 3.52 Low 3.90-5.40 automated count automated count (number/volume) (number/volume) Automated blood 10/15/2017 Automated blood 126 Low 155-360 platelet count platelet count Automated blood 10/15/2017 Automated blood 10.9 8.9-12.4 platelet mean volume platelet mean volume measurement measurement Automated erythrocyte 10/15/2017 Automated erythrocyte 33.0 High 25.9- 32.7 mean corpuscular mean corpuscular hemoglobin hemoglobin (mass per erythrocyte) Automated erythrocyte 10/15/2017 Automated erythrocyte 35.7 High 30.8- 34.3 mean corpuscular mean corpuscular hemoglobin hemoglobin concentration measurement (mass/volume) Rivera's yeast IgG Ab 10/15/2017 Rivera's yeast IgG Ab 8 0-50 [Units/volume] in [Units/volume] in Serum by Im Serum by Immunoassay Automated erythrocyte 10/15/2017 Automated erythrocyte 92.3 80.9-99.0 mean corpuscular mean corpuscular volume volume pH Ur Strip.auto 10/14/2017 pH Ur Strip.auto 6.5 6.5-7.5 Blood monocytes 10/14/2017 Blood monocytes 0.90 0.3-0.9 automated count automated count (number/volume) (number/volume) Urine total bilirubin 10/14/2017 Urine total bilirubin Small High Negative detection by detection by automated automated test test strip Automated blood 10/14/2017 Automated blood 0.07 0.0-0.5 eosinophil count eosinophil count Automated blood 10/14/2017 Automated blood 1.86 1.0-4.0 lymphocyte count lymphocyte count (number/volume) (number/volume) Eosinophil/leuk NFr 10/14/2017 Eosinophil/leuk NFr 0.5 0.0-6.6 Bld Auto Bld Auto Specific gravity of 10/14/2017 Specific gravity of 1.020 1.010-1.030 Urine by Automated Urine by Automated test strip test strip Monocytes/leuk NFr 10/14/2017 Monocytes/leuk NFr Bld 6.1 4.3-13.2 Bld Auto Auto Urine hemoglobin 10/14/2017 Urine hemoglobin Negative Negative detection by detection by automated automated test strip test strip Basophils/leuk NFr 10/14/2017 Basophils/leuk NFr Bld 0.1 0.0-1.1 Bld Auto Auto Urobilinogen Ur 10/14/2017 Urobilinogen Ur 1.0 0.2-1.0 Strip-aCnc Strip-aCnc Automated blood 10/14/2017 Automated blood 0.01 0.0-0.1 basophil count basophil count (count/volume) (count/volume) Nitrite Ur Ql 10/14/2017 Nitrite Ur Ql Negative Negative Strip.auto Strip.auto Prot Ur 10/14/2017 Prot Ur Negative Negative Strip.auto-mCnc Strip.auto-mCnc Lymphocytes/leuk NFr 10/14/2017 Lymphocytes/leuk NFr 12.7 Low 20.0-42.0 Bld Auto Bld Auto Lactic Acid 10/14/2017 Lactic Acid 0.7 mmol/L 0.4-1.9 34 Lab Reflex >2.0 for Sepsis? Y 34 Neutrophils # Bld Auto 10/14/2017 Neutrophils # Bld Auto 11.81 High 1.8- 7.0 Urine appearance 10/14/2017 Urine appearance Clear Clear determination determination Neutrophils/leuk NFr 10/14/2017 Neutrophils/leuk NFr 80.6 High 40.4-72.8 Bld Auto Bld Auto Unloinc 10/14/2017 Unloinc See Note 44 Ua RFX Micro & Culture 10/14/2017 Urine Color YELLOW Yellow 45 II Urine Clarity CLEAR Clear 45 Urine Glucose - Dipstick NEGATIVE mg/dL Negative 45 Urine Bilirubin - Dipstick SMALL Negative 45 Urine Ketone >=80 mg/dL High Negative 45 Urine Specific Reynolds 1.020 1.010-1.030 45 Urine Blood NEGATIVE Negative 45 Urine PH 6.5 6.5-7.5 45 Urine Protein - Dipstick NEGATIVE mg/dL Negative 45 Urine Urobilinogen - Dipstick 1.0 E.U./dL 0.2-1.0 45 Urine Nitrite - Dipstick NEGATIVE Negative 45 Urine Leuk Esterase NEGATIVE Negative 45 Source: URINE, CLEAN CAT <SEE NOTE> 45, 46 Laboratory test 10/14/2017 Sedimentation Rate 41 mm/hr High 0-20 47, 48 finding RDW RBC Auto 10/14/2017 RDW RBC Auto 41.1 3-47 Color Ur 10/14/2017 Color Ur Yellow Yellow Leukocyte esterase Ur 10/14/2017 Leukocyte esterase Ur Negative Negative Ql Strip.auto Ql Strip.auto Erythrocyte 10/14/2017 Erythrocyte 41 High 0-20 sedimentation rate by sedimentation rate by 15 minute readin 15 minute reading Urine glucose 10/14/2017 Urine glucose Negative Negative measurement by measurement by automated test strip automated test strip (mass/volume) Serum or plasma lipase 10/14/2017 Serum or plasma 131 56-289 measurement (enzymatic lipase measurement acti (enzymatic activity/volume) Ua RFX Micro & Culture 10/12/2017 Urine Color YELLOW Yellow 49 II Urine Clarity CLEAR Clear 49 Urine Glucose - Dipstick NEGATIVE mg/dL Negative 49 Urine Bilirubin - Dipstick NEGATIVE Negative 49 Urine Ketone NEGATIVE mg/dL Negative 49 Urine Specific Reynolds 1.015 1.010-1.030 49 Urine Blood NEGATIVE Negative 49 Urine PH 7.5 6.5-7.5 49 Urine Protein - Dipstick NEGATIVE mg/dL Negative 49 Urine Urobilinogen - Dipstick 0.2 E.U./dL 0.2-1.0 49 Urine Nitrite - Dipstick NEGATIVE Negative 49 Urine Leuk Esterase NEGATIVE Negative 49 Source: URINE, CLEAN CAT <SEE NOTE> 49, 50 Drugs Of Abuse-Urine Screen 7 10/12/2017 Amphetamines (Urine) Negative 49 Barbiturates (Urine) POSITIVE 49 Benzodiazepines (Urine) Negative 49 Cannabinoids (Urine) POSITIVE 49 Cocaine Metabolite (Urine) Negative 49 Methadone (Urine) Negative 49 Opiates (Urine) POSITIVE 49 Urine Cutoffs * 49, 51 HPV High Risk 07/25/2017 HPV High Risk Results on file 52, 53 Affirm Vaginitis 07/25/2017 Trichomonas Negative [Negative 52 Panel vaginalis ] Gardnerella vaginalis Negative [Negative] 52 Antonia species Negative [Negative] 52, 54 Laboratory test 07/10/2017 Gardnerella/Yeast: SEE RESULT 55, 56 finding Vaginal Dna BELOW Poc Urinalysis 07/10/2017 Poc Glucose, Urine Negative Negative Poc Bilirubin, Urine Negative Negative Poc Ketone, Urine Negative Negative Poc Specific Reynolds, Urine 1.010 1.010-1.030 Poc Blood, Urine Negative Negative Poc pH, Urine 7.0 5-9 Poc Protein, Urine Negative Negative Poc Urobilinogen, Urine 0.2 Negative Poc Nitrite, Urine Negative Negative Poc Leukocytes, Urine 1+ Negative Poc Color, Urine Yellow Poc Clarity, Urine Clear 57 GC/Chlamydia Amplified Rna 07/10/2017 Chlamydia trachomatis Negative Negative 58 Rna Neisseria gonorrhoeae (GC) Rna Negative Negative 58 Laboratory test finding 07/10/2017 Trichomonas vaginalis Negative Negative 58, 59 Rna Laboratory test finding 06/25/2017 Trichomonas vaginalis Negative Negative 60, 61 Rna GC/Chlamydia Amplified 06/25/2017 Chlamydia trachomatis Negative Negative 60 Rna Rna Neisseria gonorrhoeae (GC) Rna Negative Negative 60 Laboratory test 06/25/2017 Gardnerella/Yeast: SEE RESULT 60, 62 finding Vaginal Dna BELOW Lipase SerPl-cCnc 03/03/2017 Lipase SerPl-cCnc 127 [id number] Lymphocytes # Bld 03/03/2017 Lymphocytes # Bld Auto 2.49 1.0-4.0 Auto Lymphocytes/leuk 03/03/2017 Lymphocytes/leuk NFr Bld 42.6 High 20.0-42.0 NFr Bld Auto Auto MCH RBC Qn Auto 03/03/2017 MCH RBC Qn Auto 32.7 25.9-32.7 MCHC RBC 03/03/2017 [facility] Auto-mCnc 36.0 High 30.8-34.3 Auto-mCnc MCV RBC Auto 03/03/2017 MCV RBC Auto 91.0 80.9-99.0 Monocytes # Bld 03/03/2017 Monocytes # Bld Auto 0.42 0.3-0.9 Auto Monocytes/leuk 03/03/2017 Monocytes/leuk NFr Bld 7.2 4.3-13.2 NFr Bld Auto Auto Neutrophils # Bld 03/03/2017 Neutrophils # Bld Auto 2.90 1.8-7.0 Auto Neutrophils/leuk 03/03/2017 Neutrophils/leuk NFr Bld 49.7 40.4-72.8 NFr Bld Auto Auto PMV Bld Auto 03/03/2017 PMV Bld Auto 10.8 8.9-12.4 Platelet # Bld 03/03/2017 Platelet # Bld Auto 189 150-400 Auto Potassium 03/03/2017 Potassium SerPl-sCnc 3.4 Low 3.5-5.1 SerPl-sCnc Prot SerPl-mCnc 03/03/2017 Prot SerPl-mCnc 8.3 High 6.4-8.2 RBC # Bld Auto 03/03/2017 RBC # Bld Auto 4.46 3.90-5.40 RDW RBC Auto 03/03/2017 RDW RBC Auto 40.9 3-47 RDW RBC Auto-Rto 03/03/2017 RDW RBC Auto-Rto 12.4 11.7-14.4 Sodium SerPl-sCnc 03/03/2017 Sodium SerPl-sCnc 142 136-145 WBC # Bld Auto 03/03/2017 WBC # Bld Auto 5.8 3.1-10.7 Ua RFX Micro & 03/03/2017 Urine Color YELLOW Yellow 63 Culture II Urine Clarity CLEAR Clear 63 Urine Glucose - Dipstick NEGATIVE mg/dL Negative 63 Urine Bilirubin - Dipstick NEGATIVE Negative 63 Urine Ketone TRACE mg/dL High Negative 63 Urine Specific Reynolds 1.010 1.010-1.030 63 Urine Blood NEGATIVE Negative 63 Urine PH 7.5 6.5-7.5 63 Urine Protein - Dipstick NEGATIVE mg/dL Negative 63 Urine Urobilinogen - Dipstick 0.2 E.U./dL 0.2-1.0 63 Urine Nitrite - Dipstick NEGATIVE Negative 63 Urine Leuk Esterase NEGATIVE Negative 63 Source: URINE, CLEAN CAT <SEE NOTE> 63, 64 Bilirub Ur Ql 03/03/2017 Bilirub Ur Ql Negative Negative Strip.auto Strip.auto Color Ur 03/03/2017 Color Ur Yellow Yellow Ketones Ur 03/03/2017 Ketones Ur Trace High Negative Strip.auto-mCnc Strip.auto-mCnc Leukocyte esterase Ur 03/03/2017 Leukocyte esterase Ur Negative Negative Ql Strip.auto Ql Strip.auto Nitrite Ur Ql 03/03/2017 Nitrite Ur Ql Negative Negative Strip.auto Strip.auto Prot Ur 03/03/2017 Prot Ur Negative Negative Strip.auto-mCnc Strip.auto-mCnc Specific gravity of 03/03/2017 Specific gravity of 1.010 1.010-1.030 urine by automated urine by automated test strip test strip Urine appearance 03/03/2017 Urine appearance Clear Clear determination determination Urine glucose 03/03/2017 Urine glucose Negative Negative measurement by measurement by automated test strip automated test strip (mass/volume) Urine hemoglobin 03/03/2017 Urine hemoglobin Negative Negative detection by automated detection by automated test strip test strip Urobilinogen Ur 03/03/2017 Urobilinogen Ur 0.2 0.2-1.0 Strip-aCnc Strip-aCnc pH Ur Strip.auto 03/03/2017 pH Ur Strip.auto 7.5 6.5-7.5 CBS W/Automated Diff 03/03/2017 White Blood Count 5.8 K/uL 3.1-10.7 63 Red Blood Count 4.46 M/uL 3.90-5.40 63 Hemoglobin 14.6 gm/dL 11.6-15.8 63 Hematocrit 40.6 % 36.0-46.1 63 Mean Cell Volume 91.0 fl 80.9-99.0 63 Mean Corpuscular HGB 32.7 pg 25.9-32.7 63 Mean Corpuscular HGB Conc 36.0 g/dL High 30.8-34.3 63 Platelet Count 189 K/uL 150-400 63 Red Cell Distri Width SD 40.9 fl 3-47 63 Red Cell Distri Width %CV 12.4 % 11.7-14.4 63 Mean Platelet Volume 10.8 fL 8.9-12.4 63 Neut% 49.7 % 40.4-72.8 63 Lymph % 42.6 % High 20.0-42.0 63 Yates % 7.2 % 4.3-13.2 63 Eo% 0.3 % 0.0-6.6 63 Bas% 0.2 % 0.0-1.1 63 Neut# 2.90 K/uL 1.8-7.0 63 Lymph # 2.49 K/uL 1.0-4.0 63 Yates # 0.42 K/uL 0.3-0.9 63 Eos # 0.02 K/uL 0.0-0.5 63 Baso # 0.01 K/uL 0.0-0.1 63 Comprehensive Metabolic Panel 03/03/2017 Glucose 90 mg/dL 74-106 63 BUN 8 mg/dL 7-18 63 Creatinine 0.9 mg/dL 0.6-1.3 63 Glom Filtration Rate, Estimate >60 mL/min >60 63 If >60 mL/min >60 63, 65 BUN/Creat 8.8 ratio 63 Sodium 142 mmol/L 136-145 63 Potassium 3.4 mmol/L Low 3.5-5.1 63 Chloride 109 mmol/L High 98-107 63 Carbon Dioxide 26 mmol/L 21-32 63 Anion Gap 7 mEq/L Low 8-16 63 Calcium 9.7 mg/dL 8.5-10.1 63 Total Protein 8.3 g/dL High 6.4-8.2 63 Albumin 4.5 g/dL 3.4-5.0 63 Globulin 3.8 g/dL 1.9-4.3 63 Alb/Glob 1.2 ratio 63 Bilirubin,Total 0.7 mg/dL 0.2-1.0 63 Sgot/Ast 19 U/L 15-37 63 SGPT/Alt 32 U/L 12-78 63 Alkaline Phosphatase 47 U/L 45-117 63 Laboratory test finding 03/03/2017 Lipase 127 U/L 73-393 63 HCG,Serum (Qualitative) NEGATIVE (Negative) 63, 66 Alp SerPl-cCnc 03/03/2017 Alp SerPl-cCnc 47 45-117 Alt SerPl-cCnc 03/03/2017 Alt SerPl-cCnc 32 12-78 Ast SerPl-cCnc 03/03/2017 Ast SerPl-cCnc 19 15-37 Albumin SerPl-mCnc 03/03/2017 Albumin SerPl-mCnc 4.5 3.4-5.0 Albumin/Glob SerPl 03/03/2017 Albumin/Glob SerPl 1.2 Anion Gap SerPl-sCnc 03/03/2017 Anion Gap SerPl-sCnc 7 Low 8-16 Hgb Bld-mCnc 03/03/2017 Hgb Bld-mCnc 14.6 11.6-15.8 Hct VFr Bld Auto 03/03/2017 Hct VFr Bld Auto 40.6 36.0-46.1 Glucose [mass/volume] 03/03/2017 Glucose [mass/volume] 90 74-106 in serum or plasma in serum or plasma Globulin Ser Calc-mCnc 03/03/2017 Globulin Ser Calc-mCnc 3.8 1.9-4.3 Eosinophil/leuk NFr Bld 03/03/2017 Eosinophil/leuk NFr Bld 0.3 0.0-6.6 Auto Auto Eosinophil # Bld Auto 03/03/2017 Eosinophil # Bld Auto 0.02 0.0-0.5 Creat SerPl-mCnc 03/03/2017 Creat SerPl-mCnc 0.9 0.6-1.3 Chloride SerPl-sCnc 03/03/2017 Chloride SerPl-sCnc 109 High 98-107 Calcium SerPl-mCnc 03/03/2017 Calcium SerPl-mCnc 9.7 8.5-10.1 Co2 SerPl-sCnc 03/03/2017 Co2 SerPl-sCnc 26 21-32 Bilirub SerPl-mCnc 03/03/2017 Bilirub SerPl-mCnc 0.7 0.2-1.0 Basophils/leuk NFr Bld 03/03/2017 Basophils/leuk NFr Bld 0.2 0.0-1.1 Auto Auto Basophils # Bld Auto 03/03/2017 Basophils # Bld Auto 0.01 0.0-0.1 BUN/Creat SerPl 03/03/2017 BUN/Creat SerPl 8.8 BUN SerPl-mCnc 03/03/2017 BUN SerPl-mCnc 8 7-18 Urine delta 02/08/2017 Urine delta 1.1 0.0-5.4 aminolevulinate aminolevulinate measurement (mass/volu measurement (mass/volume) Stool 02/08/2017 Stool 144.0 elastase.pancreatic elastase.pancreatic measurement (mass/mass) measurement (mass/mass) Pancreatic Elastase 02/08/2017 Pancreatic Elastase 144.0 ug/g 67 (Pe-1) (Pe-1) @ @REFRIDGERATE ST <SEE NOTE> 68 @ @STOOL @Fridge: @ [id number] PANCREA <SEE NOTE> 69 Laboratory test 02/08/2017 Porphobilinogen,QN,Random Urin 0.2 mg/L 0.0- 2.0 70 finding Ala,Delta,Random Urine 1.1 mg/L 0.0-5.4 71 Laboratory test finding 02/07/2017 Complement C4, Serum 34 mg/dL 14-44 72 C1 Esterase Inhibitor 23 mg/dL 21-39 72 C1 Esterase Inhibitor Function 95 %meanno . 72, 73 Serum or plasma 02/07/2017 Serum or plasma complement C1 95 . complement C1 esterase esterase inhibitor.functional/complement C1 inhibitor.f esterase inhibitor.total Rapid Influenza 09/22/2016 Influenza A Molecular NEGATIVE Negative 74 A & B Molecular Influenza B Molecular NEGATIVE Negative Laboratory test finding 06/28/2016 Rapid Strep Molecular Negative Negative 75 Rapid Influenza A & B 02/01/2016 Influenza A Molecular NEGATIVE Negative 76 Molecular Influenza B Molecular NEGATIVE Negative Chlamydia/GC Kristen 10/24/2015 Chlamydia Trachomatis, Kristen Negative Negative Neisseria Gonorrhoeae, Kristen Negative Negative Please note: See Note 77 Laboratory test finding 10/24/2015 Antibody Detection See Note 78 Hepatitis C Antibody 10/24/2015 Hepatitis C Antibody Nonreactive Nonreactive Signal/Cutoff ratio < 0.02 <0.80 79 Affirm 10/24/2015 Trichomonas vaginalis Negative [Negative] Gardnerella vaginalis POSITIVE High [Negative] Antonia species Negative [Negative] Laboratory test 10/24/2015 Treponema Antibody Nonreactive 80 finding [place] Nonreactive Laboratory test 10/24/2015 Antonia species Dna Negative [Negative finding Probe ] Gardnerella Dna Probe Positive High [Negative] Trichomonas Dna Probe Negative [Negative] Laboratory test finding 10/24/2015 Hepatitis C Antibody Nonreactive Nonreactive Laboratory test finding 06/06/2014 Cytology Pap See Note 81 Affirm Vaginal Dna 05/07/2014 Affirm Vaginal Dna (See Note) 82 Probe Probe GC/Chlamydia Amplified 05/07/2014 GC/Chlamydia Rna (See Note) 83 Rna Urine Culture And 04/17/2014 Urine Culture (See Note) 84 Sensitivities Affirm Vaginal Dna 01/31/2014 Affirm Vaginal Dna (See Note) 85 Probe Probe Throat-Beta Strept 12/18/2013 Throat Beta Strep (See Note) 86 Culture Affirm Vaginal Dna 12/17/2013 Affirm Vaginal Dna (See Note) 87 Probe Probe GC/Chlamydia Amplified 12/17/2013 GC/Chlamydia Rna (See Note) 88 Rna Affirm Vaginal Dna 11/02/2013 Affirm Vaginal Dna (See Note) 89 Probe Probe GC/Chlamydia Amplified 11/02/2013 GC/Chlamydia Rna (See Note) 90 Rna GC/Chlamydia Amplified 10/19/2013 GC/Chlamydia Rna (See Note) 91 Rna HIV 1/2 AB Evaluation 10/19/2013 HIV 1 2 Antibody Nonreactive Nonreactive 92 Affirm Vaginal Dna 06/07/2013 Affirm Vaginal Dna (See Note) 93 Probe Probe GC/Chlamydia Amplified 06/07/2013 GC/Chlamydia Rna (See Note) 94 Rna Laboratory test finding 06/03/2013 TSH (Thyroid 1.44 miu/mL 0.34-5.60 Stimulating Horm) CBC Auto Diff 06/03/2013 Abs Basophils 0.1 10^3/uL 0-0.2 Abs Eosinophils 0.1 10^3/uL 0-0.6 Abs Lymphocytes 2.2 10^3/uL 1.0-4.8 Abs Monocytes 0.5 10^3/uL 0-0.8 Abs Neutrophils 3.6 10^3/uL 1.5-7.7 Abs Nucleated RBC 0.01 10^3/uL Basophil % 0.8 % 0-2 Eosinophil % 1.1 % 0-6 Granulocyte % 56.2 % 38-83 Hematocrit 44 % 35-47 Hemoglobin 15.4 g/dL 12.0-16.0 Lymphocyte % 34.4 % 25-47 Mean Corpuscular HGB Conc 35 g/dL 31-36 Mean Corpuscular Hemoglobin 35 pg High 27-31 Mean Corpuscular Volume 99 fL High 80-97 Mean Platelet Volume 10 um3 7.4-10.4 Monocyte % 7.5 % 1-9 Nucleated Red Blood Cells % 0.1 Platelet Count 179 10^3/uL 150-450 Red Blood Count 4.42 10^6/uL 4.0-5.4 Red Cell Distribution Width 12 % 10.5-15 White Blood Count 6.5 10^3/uL 4.8-10.8 Comp Metabolic Panel 06/03/2013 Albumin 4.3 g/dL 3.6-5.4 Albumin/Globulin Ratio 1.7 1-3 Alkaline Phosphatase 41 U/L 30-110 Alt 23 U/L 14-54 Anion Gap 6.0 mmol/L 2-11 Ast 22 U/L 12-42 BUN/Creatinine Ratio 14.3 8-20 Blood Urea Nitrogen 10 mg/dL 6-24 Calcium 9.7 mg/dL 8.1-9.9 Chloride 103 mmol/L 101-111 Co2 Carbon Dioxide 28.0 mmol/L 22-32 Creatinine 0.70 mg/dL 0.50-1.40 Egfr 127.2 >60 95 Egfr Non- 98.9 >60 Globulin 2.5 g/dL 2-4 Glucose 90 mg/dL 70-100 Potassium 4.1 mmol/L 3.5-5.0 Sodium 137 mmol/L 133-145 Total Bilirubin 1.0 mg/dL 0.4-1.5 Total Protein 6.8 g/dL 6.2-8.1 Laboratory test finding 06/03/2013 Cytology Pap See Note 96 Lipid Profile (Trig/Chol/HDL) 06/03/2013 Cholesterol 195 mg/dL Less than 200 Cholesterol/HDL Ratio 3.0 Average 1-4.44 HDL Cholesterol 66 mg/dL High 40-60 97 LDL Cholesterol 111.2 High Less Than 100 98 Triglycerides 89 mg/dL 40-200 Laboratory test finding 09/14/2012 Endometrial Curettage See Note 99 GC / Chlamydia 08/14/2012 Chlamydia Negative GC Negative 100 Laboratory test finding 08/14/2012 Cytology Pap See Note 101 Affirm 01/22/2012 Antonia Positive 102 Gardnerella Positive Trichomonas Negative GC / Chlamydia 12/27/2011 Chlamydia Negative GC Negative 103 Laboratory test finding 12/27/2011 Cytology Pap See Note 104 Urine Screen 11/02/2011 Urine Bilirubin - Negative Negative Dipstick Urine Blood Negative Negative Urine Clarity Clear Clear Urine Color Yellow Yellow Urine Glucose - Dipstick Negative mg/dL Negative Urine Ketone 15 mg/dL High Negative Urine Leuk Esterase Negative Negative Urine Nitrite - Dipstick Negative Negative Urine PH 7.0 6.5-7.5 Urine Protein - Dipstick Negative mg/dL Negative Urine Specific Reynolds 1.020 1.010-1.030 Urine Urobilinogen - Dipstick 0.2 E.U./dL 0.2-1.0 Laboratory test finding 11/02/2011 Urine HCG (Qualitative) Negative Negative 105 1 R30.0 2 10,000 - 50,000 CFU/mL 3 [id number] SEE RESULT BELOW Name: SHEFALI HARPER : [address]: Des Robert MD Acct: [id number] Unit: [id number] AGE: 33 Location: [facility] Re07/15/18 SEX: F Status: DEP ER SPEC: [id number] RG: 07/15/18-1722 [facility] DR: Inocente Haney NP REQ: [id number] RECD: 07/15/18 STATUS: LIU MOCTEZUMA DR: Kayla Robert MD _ SOURCE: URINE SPDESC: ORDERED: Urine Culture COMMENTS: [id number] Procedure Result Reported Site Urine Culture Final 07/17/18- 836 ML Organism 1 ENTEROBACTER CLOACAE [place] Count 10-25,000 (Moderate) CFU/ML 1. ENTEROBACTER CLOACAE [facility] RX --------- ------ Cefazolin R Cefepime <=1 S Ceftriaxone <=1 S Ciprofloxacin <=0.25 S Gentamicin <=1 S Levofloxacin <=0.12 S Meropenem <=0.25 S Nitrofurantoin 64 I Tetracycline 2 S Trimethoprim/Sulfamethoxazole <=20 S Amoxicillin/Clavulanic Acid R Aztreonam <=1 S Contact the Microbiology Department for any additional antibiotic reporting. * [facility] - Main Lab . END OF REPORT DEPARTMENT OF PATHOLOGY, [address] [place] [address] Yogi Taylor M.D. Director [facility] # [id number] 5 [employer]: [id number] ENTEROBACTER CLOACAE COMPLEX 7 10,000 - 50,000 CFU/mL 8 RUQ PAIN (R10.11) 9 Note: Persistent reduction for 3 months or more in an eGFR <60 mL/min/1.73 m2 defines CKD. Patients with eGFR values >/=60 mL/min/1.73 m2 may also have CKD if evidence of persistent proteinuria is present. The original MDRD equation for estimated GFR is not valid for patients less than 18 years of age. Additional information may be found at www.kdoqi.org. 10 Plastering Contractor: [id number] If is still suspected, please repeat test after 48 to 72 hours. 11 [id number] 12 Because ethnic data is not always readily available, this report includes an eGFR for both -Americans and non- Americans. The National Kidney Disease Education Program (NKDEP) does not endorse the use of the MDRD equation for patients that are not between the ages of 18 and 70, are , have extremes of body size, muscle mass, or nutritional status, or are non- or non-. According to the National Kidney Foundation, irrespective of diagnosis, the stage of the disease is based on the level of kidney function: Stage Description GFR(mL/min/1.73 m(2)) 1 Kidney damage with normal or decreased GFR 90 2 Kidney damage with mild decrease in GFR 60-89 3 Moderate decrease in GFR 30-59 4 Severe decrease in GFR 15-29 5 Kidney failure <15 (or dialysis) 13 Plastering Contractor: [id number] ABNORMAL FINDINGS ON DX STUDY 15855 16 FIRST MORNING SPECIMENS GENERALLY CONTAIN THE HIGHEST CONCENTRATION OF HCG AND ARE RECOMMENDED FOR EARLY DETECTION OF . Method: Quidel QuickVue One-Step Immunoassay 17 R53.1 18 Method: Sediplast Modified Westergren 19 Note: Persistent reduction for 3 months or more in an eGFR <60 mL/min/1.73 m2 defines CKD. Patients with eGFR values >/=60 mL/min/1.73 m2 may also have CKD if evidence of persistent proteinuria is present. The original MDRD equation for estimated GFR is not valid for patients less than 18 years of age. Additional information may be found at www.kdoqi.org. 20 ABD PAIN 21 Note: Persistent reduction for 3 months or more in an eGFR <60 mL/min/1.73 m2 defines CKD. Patients with eGFR values >/=60 mL/min/1.73 m2 may also have CKD if evidence of persistent proteinuria is present. The original MDRD equation for estimated GFR is not valid for patients less than 18 years of age. Additional information may be found at www.kdoqi.org. [address] STEIN,ABDOMINAL PAIN 23 URINE, CLEAN CATCH 24 NO GROWTH: FINAL REPORT 25 NO GROWTH: FINAL REPORT 26 Method: Sediplast Modified Westergren 27 ABD PAIN 28 URINE SPECIMENS ARE SCREENED AT THE LISTED CUTOFFS DRUG CLASS INITIAL TEST LEVEL Amphetamines 1000 ng/mL Barbiturates 200 ng/mL Benzodiazepines 200 ng/mL Cannabinoids 50 ng/mL Cocaine Metabolite 300 ng/mL Methadone 300 ng/mL Opiates 300 ng/mL Any PRESUMPTIVE POSITIVE findings are UNCONFIRMED. Confirmatory testing is suggested if findings are unexpected. Please contact laboratory if confirmatory testing is desired. SPECIMENS ARE HELD FOR 72 HOURS. 29 NO GROWTH: FINAL REPORT 30 NO GROWTH: FINAL REPORT [address] STEIN,ABDOMINAL PAIN 32 Note: Persistent reduction for 3 months or more in an eGFR <60 mL/min/1.73 m2 defines CKD. Patients with eGFR values >/=60 mL/min/1.73 m2 may also have CKD if evidence of persistent proteinuria is present. The original MDRD equation for estimated GFR is not valid for patients less than 18 years of age. Additional information may be found at www.kdoqi.org. 33 COLITIS, R SIDED ABD PAIN 34 ABD PAIN, CHOLECYSTITIS/COLITIS 35 Note: Persistent reduction for 3 months or more in an eGFR <60 mL/min/1.73 m2 defines CKD. Patients with eGFR values >/=60 mL/min/1.73 m2 may also have CKD if evidence of persistent proteinuria is present. The original MDRD equation for estimated GFR is not valid for patients less than 18 years of age. Additional information may be found at www.kdoqi.org. 36 Values below the stated reference ranges of AST and ALT can be seen in normal populations. Clinical correlation is suggested. 37 Non-smokers ..... 0.0-3.0 ng/mL Smokers ......... 0.0-5.0 ng/mL THIS ASSAY IS NOT INTENDED A CANCER SCREENING TEST The concentration of CEA in a given specimen, determined with assays from different manufacturers, can vary due to differences in assay methods and reagent specificity. Values obtained from different assay methods cannot be used interchangeably. Method: Siemens Dimension [place] Chemiluminescent Immunoassay 38 Negative <45 Equivocal 45 - 50 Positive >50 39 Negative <80 Equivocal 80 - 90 Positive >90 40 Negative <55 Equivocal 55 - 60 Positive >60 41 Negative < 90 Equivocal 90 - 100 Positive >100 This test was developed and its performance characteristics determined by [employer]. It has not been cleared or approved by the Food and Drug Administration. The FDA has determined that such clearance or approval is not necessary. 42 Pattern is not suggestive of Inflammatory Bowel Disease 43 INFCE Result Units: %mean normal Abnormal <41 Equivocal 41 - 67 Normal >67 Performed at: BN - [facility] [id number] Energy And Conservation Technician: Azeem Quintanilla MD, Phone: [phone] Performed at: - [facility] [address] [id number] Energy And Conservation Technician: Carolina Watson MD, Phone: [phone] 44 Instrument flagged sample for slide review. Less than 10% Bands seen, no other immature WBC's seen. RBC morphology essentially normal. Platelet estimate= Normal 45 EXTREME PAIN IN LOWER RIGHT FRONT 46 URINE, CLEAN CATCH 47 ABD PAIN, CHOLECYSTITIS/COLITIS 48 Method: Sediplast Modified Westergren 49 abdominal pain 50 URINE, CLEAN CATCH 51 URINE SPECIMENS ARE SCREENED AT THE LISTED CUTOFFS DRUG CLASS INITIAL TEST LEVEL Amphetamines 1000 ng/mL Barbiturates 200 ng/mL Benzodiazepines 200 ng/mL Cannabinoids 50 ng/mL Cocaine Metabolite 300 ng/mL Methadone 300 ng/mL Opiates 300 ng/mL Any PRESUMPTIVE POSITIVE findings are UNCONFIRMED. Confirmatory testing is suggested if findings are unexpected. Please contact laboratory if confirmatory testing is desired. SPECIMENS ARE HELD FOR 72 HOURS. 52 Z12.4 N89.8 53 Hard copy of report to be sent by mail Report may be viewed in Clinical Review, or in PCI under Medical Record Forms 54 Method: BD Affirm VPIII DNA Probe Assay 55 Would you like to order Trichomonas Vaginalis RNA testing? Y [id number] 56 SEE RESULT BELOW Name: SHEFALI HARPER : [address]: Shawn Ko MD Acct: [id number] Unit: [id number] AGE: 32 Location: [facility] Re07/10/17 SEX: F Status: DEP ER SPEC: [id number] RG: 07/10/17-18[address] [facility] [address]: Shawn Ko MD REQ: [id number] RECD: 07/11/17 STATUS: LIU MOCTEZUMA DR: Kayla Roy MD _ S[facility] ORDERED: Fern,Yeast DNA COMMENTS: Would you like to order Trichomonas Vaginalis RNA testing? Y [id number] Procedure Result Reported Site Gardnerella/Yeast: Vaginal DNA Final 07/11/17- 1313 ML Organism 1 Negative Gardnerella Organism 2 Negative Antonia The presence of G. vaginalis, although suggestive, is not diagnostic for bacterial vaginosis. Results should be interpreted in conjuction with other clinical and laboratory data available. Women with vaginal discharge should be evaluated for risk factors of cervicitis and pelvic inflammatory disease, toxic shock syndrome (S.aureus), and if present, evaluated for organisms not included in this assay such as N. gonorrhoeae, C. trachomatis, Mobiluncus, Mycoplasma and/or Prevotella. Mixed infections may occur. The performance of this test on patient specimens collected during or immediately after antimicrobial therapy is unknown. The presence or absence of Antonia species, or G. vaginalis cannot be used as a test for therapeutic success or failure. * ML - [facility] ([facility]) . END OF REPORT * ML=Testing performed at Main Lab DEPARTMENT OF PATHOLOGY, [address] [place] [address] Yogi Taylor M.D. Director [facility] # [id number] 57 Plastering Contractor: [id number] GC/Chlamydia Source?: Endocervical Trichomonas Source: Endocervical 60 [id number] Would you like to order Trichomonas Vaginalis RNA testing? Y [id number] GC/Chlamydia Source?: Endocervical Trichomonas Source: Endocervical 62 SEE RESULT BELOW Name: SHEFALI HARPER : [address]: Naeem Eddy MD Acct: [id number] Unit: [id number] AGE: 32 Location: [facility] Re06/25/17 SEX: F Status: DEP ER SPEC: [id number] RG: 06/25/1730 [facility] [address]: Naeem Eddy MD REQ: [id number] RECD: 06/25/175176 STATUS: [facility] : Kayla Roy MD _ SOURCE: VAGINAL SPDESC: ORDERED: Fern,Yeast DNA COMMENTS: [id number] Would you like to order Trichomonas Vaginalis RNA testing? Y Procedure Result Reported Site Gardnerella/Yeast: Vaginal DNA Final 06/25/17- 1518 ML Organism 1 Negative Gardnerella Organism 2 Negative Antonia The presence of G. vaginalis, although suggestive, is not diagnostic for bacterial vaginosis. Results should be interpreted in conjuction with other clinical and laboratory data available. Women with vaginal discharge should be evaluated for risk factors of cervicitis and pelvic inflammatory disease, toxic shock syndrome (S.aureus), and if present, evaluated for organisms not included in this assay such as N. gonorrhoeae, C. trachomatis, Mobiluncus, Mycoplasma and/or Prevotella. Mixed infections may occur. The performance of this test on patient specimens collected during or immediately after antimicrobial therapy is unknown. The presence or absence of Antonia species, or G. vaginalis cannot be used as a test for therapeutic success or failure. * ML - MAIN LAB ([facility]) . END OF REPORT * ML=Testing performed at Main Lab DEPARTMENT OF PATHOLOGY, [address] [place] [address] Yogi Taylor M.D. Director [facility] # [id number] 63 ABD PAIN 64 URINE, CLEAN CATCH 65 Note: Persistent reduction for 3 months or more in an eGFR <60 mL/min/1.73 m2 defines CKD. Patients with eGFR values >/=60 mL/min/1.73 m2 may also have CKD if evidence of persistent proteinuria is present. The original MDRD equation for estimated GFR is not valid for patients less than 18 years of age. Additional information may be found at www.kdoqi.org. 66 Method: Quidel QuickVue One-Step Immunoassay 67 Severe Pancreatic Insufficiency: <100 Moderate Pancreatic Insufficiency: 100 - 200 Normal: >200 Performed at: [address] [id number] Energy And Conservation Technician: Azeem Quintanilla MD Performed at: [address] [id number] Energy And Conservation Technician: Carolina Watson MD, Phone: [phone] 68 @REFRIDGERATE STABLE FOR 14 DAYS 69 @ [id number] PANCREATIC ELASTASE FECAL [address] 70 This test was developed and its performance characteristics determined by [employer]. It has not been cleared or approved by the Food and Drug Administration. 71 This test was developed and its performance characteristics determined by [employer]. It has not been cleared or approved by the Food and Drug Administration. Performed at: [address] [id number] Energy And Conservation Technician: Azeem Quintanilla MD, Phone: [phone] 72 R10.40 73 INFCE Result Units: %mean normal Abnormal <41 Equivocal 41 - 67 Normal >67 Performed at: [address] [id number] Energy And Conservation Technician: Carolina Watson MD, Phone: [phone] Performed at: [facility] [id number] Energy And Conservation Technician: Azeem Quintanilla MD, Phone: [phone] 74 Plastering Contractor: [id number] RUSSELL MORALES 75 Plastering Contractor: [id number] MATT BRIDGESINA Due to the increased sensitivity of molecular testing, reflex cultures are no longer performed. 76 Plastering Contractor: [id number] JOCELIN PARMAR 77 A negative result for either C. trachomatis and/or N. gonorrhoeae does not preclued an infection because results are dependent on adequate specimen collection, absence of inhibitors, and sufficient DNA to be detected. A negative result for either C. trachomatis and/or N. gonorrhoeae does not preclued an infection because results are dependent on adequate specimen collection, absence of inhibitors, and sufficient DNA to be detected. 78 No reportable results 79 Antibodies to HCV not detected; does not exclude early acute HCV infection. 80 Please Note: A nonreactive test result does not exclude the possibility of exposure to, or infection with syphilis. T. pallidum antibodies may be undetectable in some stages of the infection and in some clinical conditions. 81 Cytology Laboratory [address] [place] [address], [address] [place] [address] CYTOLOGY REPORT Name: Shefali Harper : 1985 (Age: 29) Sex: F Location: [facility] Med. Rec. # [id number] Date Collected: 06/06/2014 Billing #: [id number] Date Received : 06/07/2014 Requisition # [id number] Physician(s): MICHELLE BRYANT Source of Specimen: ENDOCERVICAL/ECTOCERVICAL THIN PREP Clinical Information: Date of Last Menstrual Period: None Provided Treatment History: Ablation Other Clinical Conditions: Last Pap Negative: normal but no transformation zone Interpretation: NEGATIVE FOR INTRAEPITHELIAL LESION OR MALIGNANCY. Specimen Adequacy: SATISFACTORY FOR EVALUATION. Additional Findings: ENDOCERVICAL/TRANSFORMATION ZONE PRESENT. mas Electronic Signature KIANA Cifuentes (ASCP) Reported: 06/09/2014 [facility] Technical Laboratory [facility] ICD-9 Code(s) V72.31 82 RUN DATE: 05/09/14 [facility] LAB LIVE PAGE 1 RUN TIME: [address], [place], [place] [address] Specimen Inquiry ---- Name: SHEFALI HARPER : [address]: Bill Colin MD Acct: [id number] Unit: [id number] AGE: 29 Location: [facility] Re05/07/14 SEX: F Status: DEP ER ---- SPEC: [id number] RG: 05/07/14-[address] [facility] [address]: Sally CAVAZOS REQ: [id number] RECD: 05/08/14-1310 STATUS: LIU MOCTEZUMA DR: Jenifer Colin MD _ SOURCE: VAGINAL SPDESC: ORDERED: Affirm ---- Procedure Result Verified Site ---- Affirm Vaginal DNA Probe Final 05/09/14-1047 ML Organism 1 Negative Trichomonas Organism 2 Negative Gardnerella Organism 3 Negative Antonia The presence of G. vaginalis, although suggestive, is not diagnostic for bacterial vaginosis. Results should be interpreted in conjunction with other clinical and laboratory data available. Women with vaginal discharge should be evaluated for risk factors of cervicitis and pelvic inflammatory disease, toxic shock syndrome (S.aureus), and if present, evaluated for organisms not included in this assay such as N. gonorrhoeae, C. trachomatis, Mobiluncus, Mycoplasma and/or Prevotella. Mixed infections may occur. The performance of this test on patient specimens collected during or immediately after antimicrobial therapy is unknown. The presence or absence of Antonia species, G. vaginalis or T. vaginalis cannot be used as a test for therapeutic success or failure. ---- END OF REPORT * ML=Testing performed at Main Lab DEPARTMENT OF PATHOLOGY, [facility] [employer] [place], [place] [address] Yogi Taylor M.D. Director [facility] # [id number] 83 RUN DATE: 05/10/14 [facility] LAB LIVE PAGE 1 RUN TIME: 1431 [facility] [employer] [place], [place] [address] Specimen Inquiry ---- Name: SHEFALI HARPER : [address]: Bill Colin MD Acct: [id number] Unit: [id number] AGE: 29 Location: [facility] Re05/07/14 SEX: F Status: DEP ER ---- SPEC: [id number] RG: 05/07/14-[address] [facility] [address]: Sally CAVAZOS REQ: [id number] RECD: 05/08/14-1310 STATUS: LIU MOCTEZUMA DR: Jenifer Colin MD _ SOURCE: ENDOCERVIX SPDESC: ORDERED: GC/Chlam RNA ---- Procedure Result Verified Site ---- Chlamydia Trachomatis RNA Final 05/10/14-1431 ML NEGATIVE for Chlamydia trachomatis rRNA GC (N. gonorrhoeae) RNA Final 05/10/14-1431 ML NEGATIVE for Neisseria gonorrhoeae rRNA A negative result does not preclude the presence of a C. trachomatis or N. gonorrhoeae infection because results are dependent on adequate specimen collection, absence of inhibitors, and sufficient rRNA to be detected. Test results may be affected by improper specimen collection, improper storage, technical error, or specimen mixup. Limitations of the Procedure: The Aptima Combo 2 Assay is not intended for the evaluation of suspected sexual abuse or for other medico-legal indications. For those patients for whom a false positive result may have adverse psychosocial impact, the [facility] recommends retesting by a method using an alternate technology. Therapeutic failure or success cannot be determined with the Aptima Combo 2 Assay since nucleic acid may persist following appropriate antimicrobial therapy. Results from the Aptima Combo 2 Assay should be interpreted in conjunction with other laboratory and clinical data available to the clinican. CONTINUED ON NEXT PAGE * ML=Testing performed at Main Lab DEPARTMENT OF PATHOLOGY, [facility] [employer] [place], [place] [address] Yogi Taylor M.D. Director [facility] # [id number] RUN DATE: 05/10/14 [facility] LAB LIVE PAGE 2 RUN TIME: 828 [facility] [employer] [place], [place] [address] Specimen Inquiry ---- Patient: SHEFALI HARPER [id number] (Continued) ---- Specimen: [id number] Collected: 05/07/14-1505 Received: 05/08/14-1310 (Continued) ---- Procedure Result Verified Site ---- GC (N. gonorrhoeae) RNA Final (continued) 05/10/14-1431 Performance characteristics for detecting C. trachomatis and N. gonorrhoeae are derived from high prevalence populations. Positive results in low prevalence populations should be interpreted carefully with the understanding that the likelihood of a false positive may be higher than a true positive. ---- END OF REPORT * ML=Testing performed at Main Lab DEPARTMENT OF PATHOLOGY, [facility] [employer] [place], [place] [address] Yogi Taylor M.D. Director [facility] # [id number] 84 RUN DATE: 04/20/14 [facility] LAB LIVE PAGE 1 RUN TIME: 2757 [facility] [employer] [place], [place] [address] Specimen Inquiry ---- Name: SHEFALI HARPER : [address]: Nabil Johnson DO Acct: [id number] Unit: [id number] AGE: 29 Location: [facility] Re04/17/14 SEX: F Status: DEP ER ---- SPEC: [id number] RG: 04/17/14-[address]: Nabil Johnson DO REQ: [id number] RECD: 04/18/14 STATUS: LIU MOCTEZUMA DR: Jenifer Zarate MD _ SOURCE: URINE SPDESC: ORDERED: Urine Culture ---- Procedure Result Verified Site ---- Urine Culture Final 04/20/14-0857 ML Organism 1 NORMAL PAULINO [place] Count 1-10,000 (Few) CFU/ML ---- END OF REPORT * ML=Testing performed at Main Lab DEPARTMENT OF PATHOLOGY, [facility] [employer] [place] [address] Yogi Taylor M.D. Director CLIA # [id number] 85 RUN DATE: 02/01/14 [facility] LAB LIVE PAGE 1 RUN TIME: 1344 [facility] [employer] [place], [place] [address] Specimen Inquiry ---- Name: SHEFALI HARPER Kiarra : [address]: Jayde Chávez MD Acct: [id number] Unit: [id number] AGE: 28 Location: [facility] Re01/31/14 SEX: F Status: DEP ER ---- SPEC: [id number] RG: 01/31/14-[address]: Jayde Chávez MD REQ: [id number] RECD: 02/01/14-1034 STATUS: LIU [facility] DR: Jenifer Zarate MD _ SOURCE: VAGINAL SPDESC: ORDERED: Affirm ---- Procedure Result Verified Site ---- Affirm Vaginal DNA Probe Final 02/01/14-1344 ML Organism 1 Negative Trichomonas Organism 2 Negative Gardnerella Organism 3 Negative Antonia The presence of G. vaginalis, although suggestive, is not diagnostic for bacterial vaginosis. Results should be interpreted in conjunction with other clinical and laboratory data available. Women with vaginal discharge should be evaluated for risk factors of cervicitis and pelvic inflammatory disease, toxic shock syndrome (S.aureus), and if present, evaluated for organisms not included in this assay such as N. gonorrhoeae, C. trachomatis, Mobiluncus, Mycoplasma and/or Prevotella. Mixed infections may occur. The performance of this test on patient specimens collected during or immediately after antimicrobial therapy is unknown. The presence or absence of Antonia species, G. vaginalis or T. vaginalis cannot be used as a test for therapeutic success or failure. ---- END OF REPORT * ML=Testing performed at Main Lab DEPARTMENT OF PATHOLOGY, [facility] [employer] [place], [place] [address] Yogi Taylor M.D. Director [facility] Permit # [id number] 86 RUN DATE: 12/21/13 [facility] LAB LIVE PAGE 1 RUN TIME: 830 [facility] [employer] [place], [place] [address] Specimen Inquiry ---- Name: SHEFALI HARPER : [address]: Thai Hickman MD Acct: [id number] Unit: [id number] AGE: 28 Location: [facility] Re12/18/13 SEX: F Status: DEP ER ---- SPEC: [id number] RG: 12/18/13-[address] [facility] [address]: Thai Hickman MD REQ: [id number] RECD: 12/19/13115 STATUS: COMP RHIANNA DR: Jenifer Zarate MD _ SOURCE: THROAT SPDESC: ORDERED: Throat Beta Str ---- Procedure Result Verified Site ---- Throat Beta Strep Culture Final 12/21/13-08 ML Negative For Group A Beta Streptococcus ---- END OF REPORT * ML=Testing performed at Main Lab DEPARTMENT OF PATHOLOGY, [facility] [employer] [place] [address] Yogi Taylor M.D. Director [facility] Permit # [id number] 87 RUN DATE: 12/18/13 [facility] LAB LIVE PAGE 1 RUN TIME: [address] [place] [address] Specimen Inquiry ---- Name: SHEFALI HARPER : [address]: Buddy Lucio MD Acct: [id number] Unit: [id number] AGE: 28 Location: [facility] Re12/17/13 SEX: F Status: DEP ER ---- SPEC: [id number] RG: 12/17/13-[address] [facility] [address]: Buddy Lucio MD REQ: [id number] RECD: 12/18/131231 STATUS: LIU MOCTEZUMA DR: Jenifer Zarate MD _ SOURCE: VAGINAL SPDESC: ORDERED: Affirm ---- Procedure Result Verified Site ---- Affirm Vaginal DNA Probe Final 12/18/13-1339 ML Organism 1 Negative Trichomonas Organism 2 Negative Gardnerella Organism 3 Negative Antonia The presence of G. vaginalis, although suggestive, is not diagnostic for bacterial vaginosis. Results should be interpreted in conjunction with other clinical and laboratory data available. Women with vaginal discharge should be evaluated for risk factors of cervicitis and pelvic inflammatory disease, toxic shock syndrome (S.aureus), and if present, evaluated for organisms not included in this assay such as N. gonorrhoeae, C. trachomatis, Mobiluncus, Mycoplasma and/or Prevotella. Mixed infections may occur. The performance of this test on patient specimens collected during or immediately after antimicrobial therapy is unknown. The presence or absence of Antonia species, G. vaginalis or T. vaginalis cannot be used as a test for therapeutic success or failure. ---- END OF REPORT * ML=Testing performed at Main Lab DEPARTMENT OF PATHOLOGY, [facility] [employer] [place], [place] [address] Yogi Taylor M.D. Director [facility] Permit # [id number] 88 RUN DATE: 12/21/13 [facility] LAB LIVE PAGE 1 RUN TIME: 1332 [facility] [employer] [place], [place] [address] Specimen Inquiry ---- Name: SHEFALI HARPER : [address]: Buddy Lucio MD Acct: [id number] Unit: [id number] AGE: 28 Location: [facility] Re12/17/13 SEX: F Status: DEP ER ---- SPEC: [id number] RG: 12/17/13-[address]: Buddy Lucio MD REQ: [id number] RECD: 12/18/13 STATUS: LIU MOCTEZUMA DR: Jenifer Zarate MD _ SOURCE: ENDOCERVIX [facility]: ORDERED: GC/Chlam RNA ---- Procedure Result Verified Site ---- Chlamydia Trachomatis RNA Final 12/21/13-1317 ML NEGATIVE for Chlamydia trachomatis rRNA GC (N. gonorrhoeae) RNA Final 12/21/13-1332 ML NEGATIVE for Neisseria gonorrhoeae rRNA A negative result does not preclude the presence of a C. trachomatis or N. gonorrhoeae infection because results are dependent on adequate specimen collection, absence of inhibitors, and sufficient rRNA to be detected. Test results may be affected by improper specimen collection, improper storage, technical error, or specimen mixup. Limitations of the Procedure: The Aptima Combo 2 Assay is not intended for the evaluation of suspected sexual abuse or for other medico-legal indications. For those patients for whom a false positive result may have adverse psychosocial impact, the [facility] recommends retesting by a method using an alternate technology. Therapeutic failure or success cannot be determined with the Aptima Combo 2 Assay since nucleic acid may persist following appropriate antimicrobial therapy. Results from the Aptima Combo 2 Assay should be interpreted in conjunction with other laboratory and clinical data available to the clinican. Performance characteristics for detecting C. trachomatis and CONTINUED ON NEXT PAGE * ML=Testing performed at Main Lab DEPARTMENT OF PATHOLOGY, [facility] [employer] [place], [place] [address] Yogi Taylor M.D. Director [facility] Permit #[id number] RUN DATE: 12/21/13 [facility] LAB LIVE PAGE 2 RUN TIME: 1332 [facility] [employer] [place], [place] [address] Specimen Inquiry ---- Patient: SHEFALI HARPER [id number] (Continued) ---- Specimen: [id number] Collected: 12/17/13 Received: 12/18/13-1231 (Continued) ---- Procedure Result Verified Site ---- GC (N. gonorrhoeae) RNA Final (continued) 12/21/13-2 N. gonorrhoeae are derived from high prevalence populations. Positive results in low prevalence populations should be interpreted carefully with the understanding that the likelihood of a false positive may be higher than a true positive. ---- END OF REPORT * ML=Testing performed at Main Lab DEPARTMENT OF PATHOLOGY, [facility] [employer] [place], [place] [address] Yogi Taylor M.D. Director [facility] Permit # [id number] RUN DATE: 11/03/13 [facility] LAB LIVE PAGE 1 RUN TIME: 1237 [facility] [employer] [place], [place] [address] Specimen Inquiry ---- Name: SHEFALI HARPER : [address]: Jayde Chávez MD Acct: [id number] Unit: [id number] AGE: 28 Location: [facility] Re11/02/13 SEX: F Status: DEP ER ---- SPEC: [id number] RG: 11/02/13-[address] [facility] [address]: Silvia CAVAZOS REQ: [id number] RECD: 11/02/13 STATUS: LIU MOCTEZUMA DR: Jenifer Chávez MD _ SOURCE: VAGINAL SPDESC: ORDERED: Affirm ---- Procedure Result Verified Site ---- Affirm Vaginal DNA Probe Final 11/03/13-1237 ML Organism 1 Negative Trichomonas Organism 2 POSITIVE GARDNERELLA Organism 3 Negative Antonia The presence of G. vaginalis, although suggestive, is not diagnostic for bacterial vaginosis. Results should be interpreted in conjunction with other clinical and laboratory data available. Women with vaginal discharge should be evaluated for risk factors of cervicitis and pelvic inflammatory disease, toxic shock syndrome (S.aureus), and if present, evaluated for organisms not included in this assay such as N. gonorrhoeae, C. trachomatis, Mobiluncus, Mycoplasma and/or Prevotella. Mixed infections may occur. The performance of this test on patient specimens collected during or immediately after antimicrobial therapy is unknown. The presence or absence of Antonia species, G. vaginalis or T. vaginalis cannot be used as a test for therapeutic success or failure. ---- END OF REPORT * ML=Testing performed at Main Lab DEPARTMENT OF PATHOLOGY, [facility] [employer] [place], [place] [address] Yogi Taylor M.D. Director [facility] Permit # [id number] RUN DATE: 11/05/13 [facility] LAB LIVE PAGE 1 RUN TIME: 1318 [facility] [employer] [place], [place] [address] Specimen Inquiry ---- Name: SHEFALI HARPER : [address]: Jayde Chávez MD Acct: [id number] Unit: [id number] AGE: 28 Location: [facility] Re11/02/13 SEX: F Status: DEP ER ---- SPEC: [id number] RG: 11/02/13-[address] [facility] [address]: Silvia CAVAZOS REQ: [id number] RECD: 11/02/13 STATUS: COMP [facility] DR: Jenifer Chávez MD _ SOURCE: ENDOCERVIX SPDESC: ORDERED: GC/Chlam RNA ---- Procedure Result Verified Site ---- Chlamydia Trachomatis RNA Final 11/05/13-1317 ML NEGATIVE for Chlamydia trachomatis rRNA GC (N. gonorrhoeae) RNA Final 11/05/13-1308 ML NEGATIVE for Neisseria gonorrhoeae rRNA A negative result does not preclude the presence of a C. trachomatis or N. gonorrhoeae infection because results are dependent on adequate specimen collection, absence of inhibitors, and sufficient rRNA to be detected. Test results may be affected by improper specimen collection, improper storage, technical error, or specimen mixup. Limitations of the Procedure: The Aptima Combo 2 Assay is not intended for the evaluation of suspected sexual abuse or for other medico-legal indications. For those patients for whom a false positive result may have adverse psychosocial impact, the CDC recommends retesting by a method using an alternate technology. Therapeutic failure or success cannot be determined with the Aptima Combo 2 Assay since nucleic acid may persist following appropriate antimicrobial therapy. Results from the Aptima Combo 2 Assay should be interpreted in conjunction with other laboratory and clinical data available to the clinican. CONTINUED ON NEXT PAGE * ML=Testing performed at [facility] Lab DEPARTMENT OF PATHOLOGY, [address] [place] [address] Yogi Taylor M.D. Director [facility] Permit #[id number] RUN DATE: 11/05/13 [facility] LAB LIVE PAGE 2 RUN TIME: 13[address] [place], [place] [address] Specimen Inquiry ---- Patient: SHEFALI HARPER [id number] (Continued) ---- Specimen: [id number] Collected: 11/02/13 Received: 11/02/13-161 (Continued) ---- Procedure Result Verified Site ---- GC (N. gonorrhoeae) RNA Final (continued) 11/05/13-1308 Performance characteristics for detecting C. trachomatis and N. gonorrhoeae are derived from high prevalence populations. Positive results in low prevalence populations should be interpreted carefully with the understanding that the likelihood of a false positive may be higher than a true positive. ---- END OF REPORT * ML=Testing performed at Main Lab DEPARTMENT OF PATHOLOGY, [facility] [employer] [place] [address] Yogi Taylor M.D. Director [facility] Permit # [id number] RUN DATE: 10/22/13 [facility] LAB LIVE PAGE 1 RUN TIME: 1745 [facility] [employer] [place], [place] [address] Specimen Inquiry ---- Name: SHEFALI HARPER : [address]: Yelena Kim NP Acct: [id number] Unit: [id number] AGE: 28 Location: [facility] Re10/19/13 SEX: F Status: REG REF ---- SPEC: [id number] RG: 10/19/[address]: Yelena Kim NP REQ: [id number] RECD: 10/19/13 STATUS: COMP _ SOURCE: URINE [facility]: ORDERED: GC/Chlam RNA QUERIES: Medent Number [id number] ---- Procedure Result Verified Site ---- Chlamydia Trachomatis RNA Final 10/22/13-1744 ML NEGATIVE for Chlamydia trachomatis rRNA GC (N. gonorrhoeae) RNA Final 10/22/13-1736 ML NEGATIVE for Neisseria gonorrhoeae rRNA A negative result does not preclude the presence of a C. trachomatis or N. gonorrhoeae infection because results are dependent on adequate specimen collection, absence of inhibitors, and sufficient rRNA to be detected. Test results may be affected by improper specimen collection, improper storage, technical error, or specimen mixup. Limitations of the Procedure: The Aptcoin4ce Combo 2 Assay is not intended for the evaluation of suspected sexual abuse or for other medico-legal indications. For those patients for whom a false positive result may have adverse psychosocial impact, the CDC recommends retesting by a method using an alternate technology. Therapeutic failure or success cannot be determined with the Aptima Combo 2 Assay since nucleic acid may persist following appropriate antimicrobial therapy. Results from the Aptima Combo 2 Assay should be interpreted in conjunction with other laboratory and clinical data available to the clinican. CONTINUED ON NEXT PAGE * ML=Testing performed at Main Lab DEPARTMENT OF PATHOLOGY, [facility] [employer] [place] [address] Yogi Taylor M.D. Director [facility] Permit #[id number] RUN DATE: 10/22/13 [facility] LAB LIVE PAGE 2 RUN TIME: [address] [place] [address] Specimen Inquiry ---- Patient: SHEFALI HARPER [id number] (Continued) ---- Specimen: [id number] Collected: 10/19/13 Received: 10/19/13 (Continued) ---- Procedure Result Verified Site ---- GC (N. gonorrhoeae) RNA Final (continued) 10/22/13-1736 Performance characteristics for detecting C. trachomatis and N. gonorrhoeae are derived from high prevalence populations. Positive results in low prevalence populations should be interpreted carefully with the understanding that the likelihood of a false positive may be higher than a true positive. ---- END OF REPORT * ML=Testing performed at Main Lab DEPARTMENT OF PATHOLOGY, [facility] [employer] [place], [place] [address] Yogi Taylor M.D. Director [facility] Permit # [id number] It is recognized that currently available assays for the detection of antibodies to HIV-1 and/or HIV-2 may not detect all infected individuals. HIV antibodies may be undetectable in some stages of the infection and in some clinical conditions. The performance of this assay has not been established for populations of infants or children. Assayed by Chemiluminescence Microparticle Immunoassay on the Siemens Advia Centaur CP. Values obtained with different methods or kits cannot be used interchangeably.The diagnostic specificity of the ADVIA Centaur 1/O/2 Enhanced assay in the low risk population was 99.90% (6052/6058) with a 95% confidence interval of 99.78 to 99.96%. 93 RUN DATE: 06/08/13 [facility] LAB LIVE PAGE 1 RUN TIME: 0415 [facility] [employer] [place], [place] [address] Specimen Inquiry ---- Name: SHEFALI HARPER : [address]: Thai Hickman MD Acct: [id number] Unit: [id number] AGE: 28 Location: [facility] Re06/07/13 SEX: F Status: DEP ER ---- SPEC: [id number] RG: 06/07/[address] [facility] [address]: Akua CAVAZOS REQ: [id number] RECD: 06/08/13 STATUS: LIU MOCTEZUMA DR: Jenifer Hickman MD _ SOURCE: VAGINAL SPDESC: ORDERED: Affirm ---- Procedure Result Verified Site ---- Affirm Vaginal DNA Probe Final 06/08/13-1452 ML Organism 1 Negative Trichomonas Organism 2 Negative Gardnerella Organism 3 Negative Antonia The presence of G. vaginalis, although suggestive, is not diagnostic for bacterial vaginosis. Results should be interpreted in conjunction with other clinical and laboratory data available. Women with vaginal discharge should be evaluated for risk factors of cervicitis and pelvic inflammatory disease, toxic shock syndrome (S.aureus), and if present, evaluated for organisms not included in this assay such as N. gonorrhoeae, C. trachomatis, Mobiluncus, Mycoplasma and/or Prevotella. Mixed infections may occur. The performance of this test on patient specimens collected during or immediately after antimicrobial therapy is unknown. The presence or absence of Antonia species, G. vaginalis or T. vaginalis cannot be used as a test for therapeutic success or failure. ---- END OF REPORT * ML=Testing performed at Main Lab DEPARTMENT OF PATHOLOGY, [facility] [employer] [place], [place] [address] Yogi Taylor M.D. Director [facility] Permit # [id number] RUN DATE: 06/11/13 [facility] LAB LIVE PAGE 1 RUN TIME: 1379 [facility] [employer] [place], [place] [address] Specimen Inquiry ---- Name: SHEFALI HARPER : [address]: Thai Hickman MD Acct: [id number] Unit: [id number] AGE: 28 Location: [facility] Re06/07/13 SEX: F Status: DEP ER ---- SPEC: [id number] RG: 06/07/[address]: Akua CAVAZOS REQ: [id number] RECD: 06/08/13 STATUS: LIU MOCTEZUMA DR: Jenifer Hickman MD _ SOURCE: ENDOCERVIX SPDESC: ORDERED: GC/Chlam RNA ---- Procedure Result Verified Site ---- Chlamydia Trachomatis RNA Final 06/11/13-1457 ML NEGATIVE for Chlamydia trachomatis rRNA GC (N. gonorrhoeae) RNA Final 06/11/13-1444 ML NEGATIVE for Neisseria gonorrhoeae rRNA A negative result does not preclude the presence of a C. trachomatis or N. gonorrhoeae infection because results are dependent on adequate specimen collection, absence of inhibitors, and sufficient rRNA to be detected. Test results may be affected by improper specimen collection, improper storage, technical error, or specimen mixup. Limitations of the Procedure: The Aptima Combo 2 Assay is not intended for the evaluation of suspected sexual abuse or for other medico-legal indications. For those patients for whom a false positive result may have adverse psychosocial impact, the [facility] recommends retesting by a method using an alternate technology. Therapeutic failure or success cannot be determined with the Aptima Combo 2 Assay since nucleic acid may persist following appropriate antimicrobial therapy. Results from the Aptima Combo 2 Assay should be interpreted in conjunction with other laboratory and clinical data available to the clinican. CONTINUED ON NEXT PAGE * ML=Testing performed at Main Lab DEPARTMENT OF PATHOLOGY, [facility] [employer] [place], [place] [address] Yogi Taylor M.D. Director [facility] Permit #[id number] RUN DATE: 06/11/13 [facility] LAB LIVE PAGE 2 RUN TIME: 2106 [facility] [employer] [place], [place] [address] Specimen Inquiry ---- Patient: SHEFALI HARPER [id number] (Continued) ---- Specimen: [id number] Collected: 06/07/13 Received: 06/08/13 (Continued) ---- Procedure Result Verified Site ---- GC (N. gonorrhoeae) RNA Final (continued) 06/11/13-9244 Performance characteristics for detecting C. trachomatis and N. gonorrhoeae are derived from high prevalence populations. Positive results in low prevalence populations should be interpreted carefully with the understanding that the likelihood of a false positive may be higher than a true positive. ---- END OF REPORT * ML=Testing performed at Main Lab DEPARTMENT OF PATHOLOGY, [address] [place] [address] Yogi Taylor M.D. Director [facility] Permit # [id number] [phone] Because ethnic data is not always readily available, this report includes an eGFR for both -Americans and non- Americans. The National Kidney Disease Education Program (NKDEP) does not endorse the use of the MDRD equation for patients that are not between the ages of 18 and 70, are , have extremes of body size, muscle mass, or nutritional status, or are non- or non-. According to the National Kidney Foundation, irrespective of diagnosis, the stage of the disease is based on the level of kidney function: Stage Description GFR(mL/min/1.73 m(2)) 1 Kidney damage with normal or decreased GFR 90 2 Kidney damage with mild decrease in GFR 60- 89 3 Moderate decrease in GFR 30-59 4 Severe decrease in GFR 15-29 5 Kidney failure <15 (or dialysis) 96 Cytology Laboratory [address] [place] [address], [address] [place] [address] CYTOLOGY REPORT Name: Shefali Harper : 1985 (Age: 28) Sex: F Location: [facility]. # Date Collected: 06/03/2013 Billing #: [id number] Date Received: 2012 Physician(s): YELENA BRYANT Source of Specimen: ENDOCERVICAL/ECTOCERVICAL THIN PREP Clinical Information: Date of Last Menstrual Period: None Provided Treatment History: Ablation Specimen Adequacy: SATISFACTORY FOR EVALUATION. NO ENDOCERVICAL/TRANSFORMATION ZONE. General Categorization: NEGATIVE FOR INTRAEPITHELIAL LESION OR MALIGNANCY. dcl Electronic Signature KIANA Clinton (ASCP) Reported: 06/07/2013 Cytology [facility] ICD-9 Code(s) V72.31 97 HDL Interpretation: Undesirable: High Risk: Less than 40 mg/dL Desirable: Low Risk: Greater than 60 mg/dL 98 LDL Interpretation: Low Risk Optimal Level: LDL Less than 100 mg/dL Near or Above Optimal: LDL 100-129 mg/dL Borderline High Risk: LDL 130-159 mg/dL High Risk : LDL 160-189 mg/dL Very High Risk: LDL Greater than 189 mg/dL 99 OPERATION/PROCEDURE Hysteroscopy, D+C, Malcolm DIAGNOSIS: "ENDOMETRIAL CURETTINGS": PROLIFERATIVE PHASE ENDOMETRIUM, SEE COMMENT. BENIGN ENDOCERVICAL GLANDS, AND SQUAMOUS TISSUE FRAGMENTS. Henry INTERPRETATION COMMENT In the context of bleeding, this may represent an anovulatory cycle with follicular insufficiency or a deficient proliferation phase. No previous biopsy is available to be reviewed. GROSS "ENDOMETRIAL CURETTINGS". The specimen is received in an appropriately labeled container. This contains 0.3 mL of pink tissue admixed with mucus. Filtered and submitted in toto within a single cassette. JW/clf MICROSCOPIC Sections of endometrium demonstrate tubular glands within a spindled stroma, largely well arranged. Scattered in the slide are fragments of tissue composed of endocervical glands lined by a single layer of columnar endocervical cells as well as benign squamous tissue fragments. PRE OPERATIVE DIAGNOSIS Menorrhagia REVIEW CODE CODE: I ---- NAOMI Zarate MD 09/15/12 2525 ---- 100 [facility] [address] [facility], [address] [place] [address] GC / CHLAMYDIA REPORT Name: Shefali Harper : 1985 (Age: 27) Sex: F Location: [facility] Med. Rec. # Date Collected: 08/14/2012 Billing #: [id number] Date Received: 08/14/2012 Physician(s): WERNER BURGOS NP Source of Specimen: ThinPrep, APTIMA Results: Neisseria gonorrhoeae NEGATIVE Chlamydia trachomatis NEGATIVE Comment: This analysis was performed using second generation nucleic acid amplification testing (NAAT). Reported: 08/17/2012 Electronic Signature tx Yvonne Faye [facility] Technical Laboratory [facility] ICD-9 Codes: 616.10 101 Cytology Laboratory [address] [facility], [address] [place] [address] CYTOLOGY REPORT Name: Shefali Harper : 1985 (Age: 27) Sex: F Location: [facility] Med. Rec. # Date Collected: 08/14/2012 Billing #: [id number] Date Received: 2011 Physician(s): WERNER BURGOS [employer] Source of Specimen: ENDOCERVICAL/ECTOCERVICAL THIN PREP Clinical Information: Date of Last Menstrual Period: None Provided Dysplasia/Cancer History: ASC-US: 12/27/11 [id number] Specimen Adequacy: SATISFACTORY FOR EVALUATION. ADEQUATE ENDOCERVICAL/TRANSFORMATION ZONE. General Categorization: NEGATIVE FOR INTRAEPITHELIAL LESION OR MALIGNANCY. mas Electronic Signature Lizbeth Torres, CT (ASCP) Reported: 08/18/2012 Also seen by :KIANA Andersen (ASCP) [facility] ICD-9 Code(s ) V72.31 795.01 102 [facility] [address] [facility], [address] [place] [address] AFFIRM VAGINOSIS / VAGINITIS REPORT Name: Shefali Harper : 1985 (Age: 26) Sex: F Location : [facility] Soc. Sec. #: [id number] Date Collected: 01/22/2012 Billing #: [id number] Date Received: 01/23/2012 Physician(s): WERNER BURGOS NP Source of Specimen: Vaginal Results: Antonia species DNA Probe POSITIVE Gardnerella vaginalis DNA Probe POSITIVE Trichomonas vaginalis DNA Probe NEGATIVE Reported: 01/24/[address] Yvonne Faye [facility] Outreach Technical Laboratory [facility] ICD-9 Codes: A: 616.10 103 [facility] [address] [facility], [address] [place] [address] GC / CHLAMYDIA REPORT Name: Shefali Harper : 1985 (Age: 26) Sex: F Location: [facility] Soc. Sec. #: [id number] Date Collected: 12/27/2011 Billing #: [id number] Date Received: 12/27/2011 Physician(s): WERNER BURGOS [employer] IR[employer]ER Source of Specimen: ThinPrep, APTIMA Results: Neisseria gonorrhoeae NEGATIVE Chlamydia trachomatis NEGATIVE Comment: This analysis was performed using second generation nucleic acid amplification testing (NAAT). Reported: 12/30/2011 Electronic Signature kiana Faye [facility] Outreach Technical Laboratory [facility] ICD-9 Codes: 616.0 104 Cytology Laboratory [address] [place] [address] [address] [place] [address] CYTOLOGY REPORT Name: Shefali Harper : 1985 (Age: 26) Sex: F Location: [facility] Date Collected: 12/27/2011 Billing #: [id number] Date Received: 12/27/2011 Physician (s): WERNER BURGOS [employer] IR[employer]ER Source of Specimen: ENDOCERVICAL/ECTOCERVICAL THIN PREP Clinical Information: Date of Last Menstrual Period: 11/29/11 Menstrual History: Irregular Specimen Adequacy: SATISFACTORY FOR EVALUATION. ADEQUATE ENDOCERVICAL/TRANSFORMATION ZONE. General Categorization: SQUAMOUS ABNORMALITY Descriptive Evaluation: ATYPICAL SQUAMOUS CELLS OF UNDETERMINED SIGNIFICANCE (ASC-US). jib Electronic Signature Stef Pretty MD Reported: 2011 Also seen by: KIANA Abraham (ASCP) [facility] HPV High Risk Date Ordered: 12/31/2011 Status: Signed Out Date Reported: 01/01/2012 High Risk POSITIVE (HPV types 16, 18, 31, 33, 35, 39, 45, 51, 52, 56, 58, 59, 68) Digene Hybrid Capture 2 Electronic Signature KIANA Nieves (ASCP) [facility] HPV Low Risk Date Ordered: 12/31/2011 Status: Signed Out Date Reported: 01/02/2012 Low Risk NEGATIVE (HPV types 6, 11) In situ hybridization In situ hybridization was performed at [employer], [facility] Outreach Technical Laboratory [facility], [address] [place] [address] [address] [facility], [place], [place], [address] The in situ hybridization report includes results which use analyte-specific reagents. These tests were developed and their performance characteristics determined by [employer]. They have not been cleared or approved by the U.S. Food and Drug Administration. The F.D.A. has determined that such clearance or approval is not necessary. The controls have been reviewed by the pathologist and are satisfactory. Electronic Signature Adelso Mckee MD [facility] Technical [facility] ICD-9 Code(s) V72.31 A: 795.01 HPV HR: 795.05 105 FIRST MORNING SPECIMENS GENERALLY CONTAIN THE HIGHEST CONCENTRATION OF HCG AND ARE RECOMMENDED FOR EARLY DETECTION OF . Procedures Date CPT Code Description Status Comment 03/20/2018 91088 Cholecystectomy with Completed cholangiography 12/18/2017 69221 Colonoscopy With Biopsy Completed 12/18/2017 Colonoscopy Completed Document: 12/18/17 - Op Report - Colonoscopy Document: 12/18/17 - Pathology Final Report Document: 12/18/17 - Colonoscopy Pictures 09/30/2017 86551 Colposcopy With Biopsy Completed 08/26/2017 91699 Radiology, Ankle Complete Completed 03/04/2017 02067 EGD With Biopsy Completed 09/14/2012 23156 Anesthesia, Hysteroscopy, Completed Hystersalpingography 04/27/201269732 Asp./Injection major joint Completed 12/10/2010 89315 Anesthesia, Tubal Completed Ligation/Transection 06/27/201057386 Aspiration/Injection joint Completed intermediate(wrist/ankle/elbow/o lbursa 06/14/201000309 Asp./Injection major joint Completed Encounters Type Date Location Provider CPT E/M Dx Office Visit 07/28/2018 5:00p Family Medicine Macey Lopez, PNP-, 66596 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 29021 F90.9 Z79.899 F41.9 R30.0 Office Visit 06/02/2018 3:30p Family Kayla Borja M.D. 94877 F90.9 Office Visit 04/10/2018 11:45a Family Medicine Kayla Roy M.D. 06995 F90.9 Office Visit 03/10/2018 10:45a Surgical Office Don Berg MD,FACS 44851 R10.11 Office Visit 02/18/2018 2:30p Family Kayla Borja M.D. 62667 F90.9 F41.9 Office Visit 01/27/2018 10:45a Surgical Office Don Berg MD,FACS 50779 R10.9 Office Visit 01/14/2018 2:30p Family Kayla Borja M.D. 76846 F41.9 F90.9 Office Visit 12/31/2017 10:15[place] [address] R93.3 R10.11 K57.30 K64.0 Office Visit 12/10/2017 2:00p [facility] Kayla Borja M.D. 57199 R41.840 F41.9 Office Visit 12/03/2017 11:30[place] [address] R93.3 Office Visit 11/25/2017 8:30a Surgical Office Don Berg MD,FACS 29027 R10.11 Office Visit 11/04/2017 2:00p Surgical Office Don Berg MD,FACS 81190 R10.11 Office Visit 10/31/2017 1:30[place] [address] R93.3 R10.11 R11.0 R53.1 R14.0 Office Visit 10/24/2017 9:15a Kayla Hargrove M.D. 09419 R10.11 Office Visit 10/22/2017 10:00a [place] [address] K59.00 R93.3 R10.31 R10.11 Office Visit 08/26/2017 1:30p Orthopaedic Office Billy Calderon, 99098 S93.401A M.DRaffaele S83.421A V48.4xxA Office Visit 08/07/2017 10:30a Orthopaedic Office Billy Calderon, 79199 S83.421D M.DRaffaele Office Visit 07/29/2017 3:00p Orthopaedic Office Billy Caldreon, 87979 M23.91 M.D. Office Visit 07/25/2017 2:00p Family Kayla Borja M.D. 45580 Z00.00 Z12.4 M25.561 N89.8 Office Visit 03/21/2017 2:45[place] [address] R10.13 K21.9 K59.00 K29.70 Office Visit 02/07/2017 11:00[place] [address] R10.13 R11.2 R19.4 Office Visit 01/20/2017 10:00a Family [facility] Rosalva Cary, 77799 R10.13 LEAF SUCKER OPERATOR-C Office Visit 04/23/2016 10:15a Family [facility] Kayla Roy M.D. 50507 M25.571 Office Visit 02/22/2016 3:15p [facility] Kayla Roy M.D. 57974 G47.00 Office Visit 01/17/2016 3:00p [facility] Kayla Roy M.D. 62737 M25.511 M54.5 Office Visit 01/11/2016 3:30p [facility] Kayla Roy M.D. 89404 R51 G47.00 M62.838 Office Visit 12/26/2015 10:30a [facility] Michelle Torres FNP 42081 R51 G47.00 Office Visit 10/27/2015 1:30p [facility] Michelle Torres LEAF SUCKER OPERATOR 76596 J00 Office Visit 10/24/2015 11:15a [facility] Kayla Roy M.D. 22228 N89.8 Z11.3 J32.9 Z23 Office Visit 02/16/2015 1:30p [facility] Michelle Torres LEAF SUCKER OPERATOR 90911 079.99 Office Visit 02/08/2015 4:00p [facility] Jenifer Zarate M.D. 60008 780.52 724.2 Plan of Care Future Appointment(s):08/14/2018 3:00 pm - Cyndi Curran PA at [facility]
[2018-08-24 11:10] VITALS: BP 99/72
--- NOTE | 2018-08-24 11:54 | UC ---
Complaint Female HPI - HPI Summary HPI Summary: 33 y/o female presents to the urgent care c/o white vaginal discharge w/ a lot of itchiness on and off for the past 2 week. Pt reports She was Dx w/ UTI and Rx ABx about 3 weeks ago. She thinks UTI is returning since she has developed some frequency on urination. She has been applied apple cider vinegar rinses on her vagina w/o any improvement of symptoms. Pt also C/o of nasal congestions w/ clear nasal discharge for the past 2 days. Pt denies fever, lower back pain, abdominal pain, SOB, cough, chest pain, N/V/D. Hx of STD's. Last PAP negative on 2016. Hx of Uterine ablation. - History Of Current Complaint Chief Complaint: UCGeneralIllness Stated Complaint: PERSONAL/SINUS COMPLAINT Time Seen by Provider: 08/24/18 11:52 Hx Obtained From: Patient Hx Last Menstrual Period: ABLATION ?: No Onset/Duration: Gradual Onset, Lasting Weeks - 2 weeks, Still Present, Worse Since - yesterday Timing: Constant Severity Initially: Mild Severity Currently: Moderate Pain Intensity: 5 - burning sensation on urination Pain Scale Used: 0-10 Numeric Character: Burning Aggravating Factor(s): Urination Alleviating Factor(s): Other - vinegar apple cider Associated Signs And Symptoms: Positive: Vaginal Discharge. Negative: Fever, Back Pain, Vaginal Bleeding/Discharge, Genital Swelling, Genital Blisters Related Hx: Similar Episode/Dx as: - Candidiasis - Risk Factors Ectopic Risk Factor: Negative - Allergies/Home Medications Allergies/Adverse Reactions: Allergies Allergy/AdvReac Type Severity Reaction Status Date / Time albuterol Allergy Anxiety Verified 08/24/18 11:01 amoxicillin Allergy Abdominal Verified 08/24/18 11:01 Pain clavulanic acid Allergy Abdominal Verified 08/24/18 11:01 Pain peanut oil Allergy GI Upset Verified 08/24/18 11:01 Penicillins Allergy Abdominal Verified 08/24/18 11:01 Pain Blue Foam Allergy Hives Uncoded 08/24/18 11:01 peanuts Allergy Stomach Uncoded 08/24/18 11:01 Cramps PMH/Surg Hx/FS Hx/Imm Hx Previously Healthy: Yes Respiratory History: Asthma GI/ History: Gastroesophageal Reflux Other GI/ History: Colilits, cholycistitis Other History Of: Negative For: HIV, Hepatitis B, Hepatitis C, Anticoagulant Therapy - Surgical History Surgical History: Yes Surgery Procedure, Year, and Place: Uterine Ablation, 09/14/12. Tubal Ligation , 2011. ENDOSCOPY. GALLBLADDER - Family History Known Family History: Positive: Respiratory Disease Negative: Cardiac Disease, Hypertension, Diabetes - Social History Occupation: Employed Full-time Lives: With Family Alcohol Use: Rare Substance Use Type: Marijuana Substance Use Comment - Amount & Last Used: more recently for nausea Smoking Status (MU): Former Smoker Have You Smoked in the Last Year: No When Did the Patient Quit Smoking/Using Tobacco: 2013 Household Exposure Type: Cigarettes - Immunization History Most Recent Influenza Vaccination: OCT 2015 Most Recent Tetanus Shot: May 2013 Hx Tetanus, Diphtheria Vaccination: Yes Vaccination Up to Date: Yes Review of Systems Constitutional: Negative Skin: Negative Eyes: Negative ENT: Negative Respiratory: Negative Cardiovascular: Negative Gastrointestinal: Negative Genitourinary: Dysuria, Frequency, Vaginal/Penile Itching, Vaginal/Penile Discharge Motor: Negative Neurovascular: Negative Musculoskeletal: Negative Neurological: Negative Psychological: Negative Is Patient Immunocompromised?: No All Other Systems Reviewed And Are Negative: Yes Physical Exam - Summary Physical Exam Summary: Vital signs: reviewed General: well developed, well nourished female sitting in the examining table w /o any acute distress. Head: Normocephalic, no lesions. Eyes: PERRLA, EOM's full, conjunctiva clear, fundi grossly normal. Ears: EAC's clear, TM's normal. Nose: edematous and eryhtemathous nasal mucosa, w/ clear nasal discharge, no obstruction. Throat: Clear, no exudates, no lesions. Neck: Supple, no masses, no thyromegaly, no bruits. Chest: Lungs clear, no rales, no rhonchi, no wheezes. Heart: RR, no murmurs, no rubs, no gallops. Abdomen: Soft, no tenderness, no masses, BS normal. Pelvic: I was assisted by Nurse Corinne. External genitalia within normal limits. There is no lesions there is no masses noted. Speculum exam: The vaginal hemphill are within normal limits w/ normal white cottage cheese vaginal discharge w/ fishy odor, no the lesions or rashes. The cervix is closed with no lesions or masses. There is no CMT's, and no adnexal masses. Sample sent to Lab for G/C and Affirm panel. Rectal: No lesions, no hemorrhoids, Back: Normal curvature, no tenderness. Extremities: FROM, no deformities, no edema, no erythema. Neuro: Physiological, no localizing findings. Skin: Normal, no rashes, no lesions noted. Triage Information Reviewed: Yes Vital Signs: Initial Vital Signs Temp 97.8 F 08/24/18 11:02 Pulse 54 08/24/18 11:02 Resp 15 08/24/18 11:02 BP 99/72 08/24/18 11:02 Pulse Ox 100 08/24/18 11:02 Complaint Female Dx - Course Course Of Treatment: 33 y/o female presents to the urgent care c/o white vaginal discharge w/ a lot of itchiness on and off for the past 2 week. Pt reports She was Dx w/ UTI and Rx ABx about 3 weeks ago. She thinks UTI is returning since she has developed some frequency on urination. She has been applied apple cider vinegar rinses on her vagina w/o any improvement of symptoms. Pt also C/o of nasal congestions w/ clear nasal discharge for the past 2 days. Pt denies fever, lower back pain, abdominal pain, SOB, cough, chest pain, N/V/D. Hx of STD's. Last PAP negative on 2016. Hx of Uterine ablation. Hx obtained. Pt w/ a white grayish vaginal discharge w/ fishy odor on pelvic examination. Pt w/ probably BV. However Pt insists to get Treatment for candidiasis. Pt Rx Metronidazole topical cream and Fluconazole 150mg PO as directed below. Sample sent to Lab for Affirm panel to r/o any abnormality. Pt will be notified of result. UA: negative. Pt also w/ Rhinosinusitis. Pt Rx Flonase nasal spray ot alleviate symptoms. Pt advised if not improvement of symptoms to f/u w/ her PCP or her FIXED INCOME PORTFOLIO MANAGER for fruther management. Pt understood and agreed with plan of care. - Differential Dx/Diagnosis Differential Diagnosis/HQI/PQRI: Pelvic Inflammatory Disease, Renal Colic, Sexually Transmitted Disease, Ureteral Stone, Urinary Tract Infection, Other - sinusitis, Provider Diagnoses: 1- Bacterial Vaginosis and Candidiasis. 2- Rhinosinusitis Discharge - Sign-Out/Discharge Documenting (check all that apply): Patient Departure - D/c home All imaging exams completed and their final reports reviewed: No Studies - Discharge Plan Condition: Stable Disposition: HOME Prescriptions: Fluconazole 150 MG (NF) [Diflucan 150 mg (NF)] 150 mg PO ONCE #1 tab Fluticasone NASAL SPRAY 50MCG* [Flonase NASAL SPRAY 50MCG*] 2 spray BOTH NARES DAILY #1 btl metroNIDAZOLE VAGINAL 0.75%* 1 applic VAGINAL BEDTIME #1 yanelis Patient Education Materials: Bacterial Vaginosis (ED), Rhinosinusitis (ED) Referrals: Lary NEGRETE,Marianne Gaviria [Primary Care Provider] - 3 Days Additional Instructions: 1-Please apply Metronidazole topical cream as directed and Take Fluconazole PO as directed to alleviate symptoms 2- Specimen were sent to lab, if anything abnormal you will receive a call from us for further treatment. 3- Use Flonase nasal spray as directed and use saline drops as directed to clear sinuses 4-If not improvement of symptoms please return to the urgent care or f/u with your FIXED INCOME PORTFOLIO MANAGER in 3-4 days for further treatment - Billing Disposition and Condition Condition: STABLE Disposition: Home - Attestation Statements Provider Attestation: Per institutional requirements, I have reviewed the chart, however, I was not consulted specifically or made aware of this patient by the midlevel provider. I did not personally evaluate, interact with , or disposition this patient.
--- NOTE | 2018-08-26 11:20 | UC ---
- Progress Note Progress Note: neg joanna, neg garnderella no change [facility] 08/26 Discharge - Sign-Out/Discharge Documenting (check all that apply): Post-Discharge Follow Up All imaging exams completed and their final reports reviewed: No Studies - Discharge Plan Condition: Stable Disposition: HOME Prescriptions: Fluconazole 150 MG (NF) [Diflucan 150 mg (NF)] 150 mg PO ONCE #1 tab Fluticasone NASAL SPRAY 50MCG* [Flonase NASAL SPRAY 50MCG*] 2 spray BOTH NARES DAILY #1 btl metroNIDAZOLE VAGINAL 0.75%* 1 applic VAGINAL BEDTIME #1 yanelis Patient Education Materials: Bacterial Vaginosis (ED), Rhinosinusitis (ED) Referrals: Lary NEGRETE,Marianne Gaviria [Primary Care Provider] - 3 Days Additional Instructions: 1-Please apply Metronidazole topical cream as directed and Take Fluconazole PO as directed to alleviate symptoms 2- Specimen were sent to lab, if anything abnormal you will receive a call from us for further treatment. 3- Use Flonase nasal spray as directed and use saline drops as directed to clear sinuses 4-If not improvement of symptoms please return to the urgent care or f/u with your AVIONICS INSTALLER in 3-4 days for further treatment - Billing Disposition and Condition Condition: STABLE Disposition: Home
== END 2018-08-24 12:41 | disposition home or self-care (01) ==
LOC: UCCORT 10:26
DX: B37.2 Candidiasis of skin and nail (principal); B37.3 Candidiasis of vulva and vagina; J32.9 Chronic sinusitis, unspecified; Z88.0 Allergy status to penicillin; Z88.8 Allergy status to other drugs, medicaments and biological substances; Z87.891 Personal history of nicotine dependence; N76.0 Acute vaginitis
CPT/HCPCS: 81003; 87480; 87510; 99213; G0463

== ENCOUNTER 2018-10-07 11:01 | Emergency (ER) | payer OTHER ==
[2018-10-07 12:11] VITALS: BP 104/58
--- NOTE | 2018-10-07 12:41 | UC ---
Throat Pain/Nasal Torsten HPI - HPI Summary HPI Summary: Pt presents with progressive sinus congestion, PND and sore throat. Painful swallowing. no fever, chills + little relief with PTC meds ear "popping" but no pain. No cough + sicj contact Pt's medications reviewed this visit - History of Current Complaint Chief Complaint: UCRespiratory Stated Complaint: SINUSES, SORE THROAT Time Seen by Provider: 10/07/18 12:41 Hx Obtained From: Patient Hx Last Menstrual Period: 2013; hx tubal/ablation ?: No Onset/Duration: Gradual Onset Pain Intensity: 8 - Allergies/Home Medications Allergies/Adverse Reactions: Allergies Allergy/AdvReac Type Severity Reaction Status Date / Time albuterol Allergy Anxiety Verified 10/07/18 12:04 amoxicillin Allergy Abdominal Verified 10/07/18 12:04 Pain clavulanic acid Allergy Abdominal Verified 10/07/18 12:04 Pain peanut oil Allergy GI Upset Verified 10/07/18 12:04 Penicillins Allergy Abdominal Verified 10/07/18 12:04 Pain Blue Foam Allergy Hives Uncoded 10/07/18 12:04 peanuts Allergy Stomach Uncoded 10/07/18 12:04 Cramps PMH/Surg Hx/FS Hx/Imm Hx Previously Healthy: Yes Other History Of: Negative For: HIV, Hepatitis B, Hepatitis C, Anticoagulant Therapy - Surgical History Surgical History: Yes Surgery Procedure, Year, and Place: Uterine Ablation, 09/14/12. Tubal Ligation , 2011. ENDOSCOPY. GALLBLADDER - Family History Known Family History: Positive: Respiratory Disease Negative: Cardiac Disease, Hypertension, Diabetes - Social History Occupation: Employed Full-time Lives: With Family Alcohol Use: Rare Substance Use Type: None Substance Use Comment - Amount & Last Used: more recently for nausea Smoking Status (MU): Former Smoker Have You Smoked in the Last Year: No When Did the Patient Quit Smoking/Using Tobacco: 2013 Household Exposure Type: Cigarettes - Immunization History Most Recent Influenza Vaccination: OCT 2015 Most Recent Tetanus Shot: May 2013 Hx Tetanus, Diphtheria Vaccination: Yes Vaccination Up to Date: Yes Review of Systems All Other Systems Reviewed And Are Negative: Yes Constitutional: Positive: Fatigue ENT: Positive: Sore Throat, Ear Ache - popping, Sinus Congestion, Sinus Pain/ Tenderness Respiratory: Positive: Negative Physical Exam - Summary Physical Exam Summary: Vital Signs Reviewed: Yes A+Ox3, congested, cough Eyes: Conjunctiva Clear, ELVIA. EOM intact and full ENT: Hearing grossly normal scant fluid right hear, turbinates inflammed and boggy, + PND mmoist, uvula midline, no exudate, mild erythema Neck: Positive: Supple Respiratory: Positive: coarse cough, diffuse wheeze + BS throughout no increased WOB, no accessory muscles Cardiovascular: RRR nl s1, s2 no m/r CBT <2 sec abd soft + BS nt/nd no guarding, no distension Musculoskeletal Exam: LARRY x 4 without difficulty Strength Intact, ROM Intact Neurological: Positive: Alert, + sensation throughout Psychological: Positive: Normal Response To Family Skin: Positive: no rash, no ecchymosis Vital Signs: Initial Vital Signs Temp 98.7 F 10/07/18 12:05 Pulse 54 10/07/18 12:05 Resp 16 10/07/18 12:05 BP 104/58 10/07/18 12:05 Pulse Ox 97 10/07/18 12:05 Throat Pain/Nasal Course/Dx - Course Course Of Treatment: Pt with progresive congestion, sor throat, PND. VSS. exam c/w sinusitis. strep neg. abx, decongestant. hydrate. motrin/apap. secretion precuatio. return precaution - Differential Dx/Diagnosis Provider Diagnosis: Rhinosinusitis Discharge - Sign-Out/Discharge Documenting (check all that apply): Patient Departure All imaging exams completed and their final reports reviewed: No Studies - Discharge Plan Condition: Stable Disposition: HOME Prescriptions: Azithromycin TAB* [Zithromax TAB (Z-OTTO) 250 mg #6 tabs] 2 tab PO .TODAY, THEN 1 DAILY #1 otto Fluticasone NASAL SPRAY 50MCG* [Flonase NASAL SPRAY 50MCG*] 2 spray BOTH NARES DAILY #1 btl Patient Education Materials: Upper Respiratory Infection (ED), Rhinosinusitis ( ED) Referrals: Macey Lopez NP [Primary Care Provider] - Additional Instructions: - Stay well hydrated. Drink plenty of non-alcoholic, non-caffinated beverages. - Alternate ibuprofen (Advil, Motrin) 600mg and Tylenol every 3 hours for pain or fever. Take with food. Do NOT take for more than 4-5 days. - These infections are spread by secretions - do NOT share eating or drinking utensils - clean items you share with other people such as cell phones, computer mouse, TV remote, computer tablets,etc. Once you have been antibiotics for 2 days, change your toothbrush and your pillowcase. - get plenty of restful sleep - humidify the air in the room where you sleep - boil water, run a hot steam shower, vaporizer, cups of water by heat register - okay to take over the counter decongestant and cough medication - use nasal spray as prescribed - contact your doctor or return with questions or concerns - Billing Disposition and Condition Condition: STABLE Disposition: Home
== END 2018-10-07 13:01 | disposition home or self-care (01) ==
LOC: UCCORT 11:01
DX: J32.9 Chronic sinusitis, unspecified (principal); Z88.0 Allergy status to penicillin; Z88.8 Allergy status to other drugs, medicaments and biological substances; Z87.891 Personal history of nicotine dependence
CPT/HCPCS: 87651; 99212; G0463

== ENCOUNTER 2019-08-22 10:35 | Emergency (ER) | payer OTHER ==
--- OUTSIDE RECORDS SUMMARY | 2019-08-22 11:16 | XMS REPORT | Continuity of Care Document ---
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 Onset: 01/11/2016 Gastroduodenitis Earle Pradhan MD Onset: 03/21/2017 Gastroesophageal reflux disease Earle Pradhan MD Onset: 03/21/2017 Constipation Earle Pradhan MD Onset: 03/21/2017 First degree hemorrhoids Earle Pradhan MD Onset: 10/31/2017 Diverticular disease of colon Earle Pradhan MD Onset: 12/31/2017 Anxiety state Kayla Roy M.D. Onset: 01/14/2018 Attention-deficit hyperactivity disorder, Kayla Roy M.D. Onset: 01/14/2018 unspecified type Social History Type Date Description Comments Sex Unknown Tobacco Use Start: Unknown End: Former Cigarette Smoker Quit 3 years ago Unknown 1/2 Pack Daily Smoking Status Reviewed: 07/20/19 Former Cigarette Smoker Quit 3 years ago 1/2 Pack Daily ETOH Use Denies alcohol use Tobacco Use Start: Unknown End: Patient is a former Unknown smoker Recreational Drug Use Denies Drug Use Allergies, Adverse Reactions, Alerts Active Allergies Reaction Severity Comments Date Albuterol 02/16/2015 Penicillin 12/13/2011 Augmentin 07/25/2017 Methylphenidate rash 06/02/2018 Blue Medical Foam 09/16/2018 Peanut-Containing Drug Products 05/26/2019 Medications Active Medications SIG Qnty Indications Ordering Date Provider Amphetamine-Dextroamp 1 cap by mouth 30caps F90.9 Luli Elizabeth, 2018 het ER every morning ref 10mg Caps ER # [id number] 24HR Ambien 1 every night at 30tabs G47.00 Luli Elizabeth, 05/26/2019 10mg Tablets bedtime as needed reference #: [id number] Escitalopram Oxalate 1 by mouth every 30tabs F41.9 Macey Lopez, 2018 day PNP-BC, ON AIR HOST, 10mg Tablets Ibclc Meloxicam take 1 tablet by 60tabs M25.549 Macey Lopez, 10/19/2018 7.5mg Tablets mouth twice a day PNP-BC, ON AIR HOST, Ibclc Hydroxyzine HCL 1-2 tabs by mouth 45tabs F41.9 Kayla Roy, 12/10/2017 25mg three times a day M.D. Tablets as needed anxiety Flovent HFA 2 puff twice a day Unknown 44mcg/Act prn Aerosol History Medications Ambien take one pill each 30tabs G47.00 Macey Lopez, 03/18/2019 - 5mg night as needed for PNP-BC, ON AIR HOST, 05/26/2019 Tablets sleep - Reference Ibclc #: [id number] Immunizations CPT Code Status Date Vaccine Lot # [id number] Given 09/16/2018 Influenza Virus Vaccine, Quadrivalent, 36 Mos+, [id number] 94625 Given 07/25/2017 Influenza Virus Vaccine Quadrivalent Iiv4 Split [id number] Preser Free Id Q2038 Given 10/24/2015 Influenza Vaccine (Fluzone) Age 3 And Older [id number] 42326 Given 09/01/2014 flu vaccination 11211 Given 08/19/2013 flu vaccination 33785 Given 06/03/2013 Tdap injection 85880 Given 08/21/2010 flu vaccination Vital Signs Date Vital Result Comment 07/20/2019 4:33pm BP Systolic 118 mmHg BP Diastolic 72 mmHg Body Temperature 98.7 F Heart Rate 70 /min Respiratory Rate 17 /min Height 64 inches 5'4" Weight 153.00 lb with boots BMI (Body Mass Index) 26.3 kg/m2 BSA (Body Surface Area) 1.75 m2 [place] body weight in kilograms 54 kg 05/26/2019 4:25pm BP Systolic 102 mmHg BP Diastolic 61 mmHg Heart Rate 61 /min Height 64 inches 5'4" Weight 158.25 lb BMI (Body Mass Index) 27.2 kg/m2 BSA (Body Surface Area) 1.77 m2 [place] body weight in kilograms 54 kg O2 % BldC Oximetry 98 % Results Description No Information Available Procedures Date Code Description Status 12/18/2017 [id number] Colonoscopy Completed Medical Devices Description No Information Available Encounters Type Date Location Provider Dx Diagnosis Office Visit 07/20/2019 [facility] Macey Lopez, F90.9 Attention- deficit 4:30p [facility] PNP-BC, ON AIR HOST, hyperactivity Ibclc disorder, unspecified type F41.9 Anxiety disorder, unspecified G47.00 Insomnia, unspecified Office Visit 05/26/2019 4:30p [facility] Macey Lopez, F41.9 Anxiety disorder, [facility] PNP-BC, ON AIR HOST, unspecified Ibclc F90.9 Attention-deficit hyperactivity disorder, unspecified type M79.641 Pain in right hand G47.00 Insomnia, unspecified Assessments Date Code Description Provider 07/20/2019 F90.9 Attention-deficit hyperactivity Macey Lopez, PNP-BC, ON AIR HOST, disorder, unspecified type Ibclc 07/20/2019 F41.9 Anxiety disorder, unspecified Macey Lopez, PNP-BC, ON AIR HOST, Ibclc 07/20/2019 G47.00 Insomnia, unspecified Macey Lopez, PNP-BC, ON AIR HOST, Ibclc 05/26/2019 F41.9 Anxiety disorder, unspecified Macey Lopez, PNP-BC, ON AIR HOST, Ibclc 05/26/2019 F90.9 Attention-deficit hyperactivity Macey Lopez, PNP-BC, ON AIR HOST, disorder, unspecified type Ibclc 05/26/2019 M79.641 Pain in right hand Macey Lopez, PNP-BC, ON AIR HOST, Ibclc 05/26/2019 G47.00 Insomnia, unspecified Macey Lopez, PNP-BC, ON AIR HOST, Ibclc Plan of Treatment Future Appointment(s):01/18/2020 4:45 pm - Macey Lopez PNP-BC, ON AIR HOST, Ibclc at [facility]07/20/2019 - Macey Lopez PNP-BC, ON AIR HOST, AcfyfF05.9 Attention-deficit hyperactivity disorder, unspecified typeComments: improvedFollow up:6 months fuF41.9 Anxiety disorder, unspecifiedComments: [id number] Insomnia, unspecified Functional Status Description No Information Available Mental Status Description No Information Available Referrals Refer to Reason for Referral Status Appt Date Lc Clifton MD joint issues in her hands, xray Patient Declined showing osteopenia although nothing on lab work. [address] [place] [address] [place] [address] [phone]
[2019-08-22 11:22] VITALS: BP 108/64
[2019-08-22] MEDS ORDERED: Ibuprofen TAB* 400 MG PO ONE (11:42)
--- NOTE | 2019-08-22 11:42 | UC ---
Throat Pain/Nasal Torsten HPI - HPI Summary HPI Summary: Pt presents with c/o of PARK, generalized malaise, nasal congestion, sinus pressure and pain, and "loss of voice" X 5 days. - History of Current Complaint Chief Complaint: UCGeneralIllness Stated Complaint: SINUS PRESSURE, SORE THROAT Time Seen by Provider: 08/22/19 11:27 Hx Obtained From: Patient Hx Last Menstrual Period: 2013; hx tubal/ablation ?: No Onset/Duration: Gradual Onset, Lasting Days, Still Present, Worse Since - onset Severity: Moderate Pain Intensity: 5 Cough: Nonproductive Associated Signs & Symptoms: Positive: Hoarseness, Sinus Discomfort - Epiglottits Risk Factors Epiglottis Risk Factors: Negative - Allergies/Home Medications Allergies/Adverse Reactions: Allergies Allergy/AdvReac Type Severity Reaction Status Date / Time albuterol Allergy Anxiety Verified 07/04/19 16:11 amoxicillin Allergy Abdominal Verified 07/04/19 16:11 Pain clavulanic acid Allergy Abdominal Verified 07/04/19 16:11 Pain methylphenidate Allergy Hives Verified 08/22/19 11:23 [From Ritalin] peanut oil Allergy GI Upset Verified 07/04/19 16:11 Penicillins Allergy Abdominal Verified 07/04/19 16:11 Pain Blue Foam Allergy Hives Uncoded 07/04/19 16:11 peanuts Allergy Stomach Uncoded 07/04/19 16:11 Cramps PMH/Surg Hx/FS Hx/Imm Hx Previously Healthy: Yes Psychological History: Anxiety Other History Of: Negative For: HIV, Hepatitis B, Hepatitis C, Anticoagulant Therapy - Surgical History Surgical History: Yes Surgery Procedure, Year, and Place: Uterine Ablation, 09/14/12. Tubal Ligation , 2011. ENDOSCOPY. GALLBLADDER-2018. right carpal tunnel surger-2019 - Family History Known Family History: Positive: Respiratory Disease Negative: Cardiac Disease, Hypertension, Diabetes - Social History Occupation: Employed Part-time Lives: With Family Alcohol Use: Rare Substance Use Type: None Substance Use Comment - Amount & Last Used: more recently for nausea Smoking Status (MU): Former Smoker Have You Smoked in the Last Year: No When Did the Patient Quit Smoking/Using Tobacco: 5-6 years ago Household Exposure Type: Cigarettes - Immunization History Most Recent Influenza Vaccination: OCT 2015 Most Recent Tetanus Shot: May 2013 Hx Tetanus, Diphtheria Vaccination: Yes Vaccination Up to Date: Yes Review of Systems All Other Systems Reviewed And Are Negative: Yes Constitutional: Positive: Fever - subjective, Chills, Fatigue Skin: Positive: Negative Eyes: Positive: Negative ENT: Positive: Sore Throat, Ear Ache, Nasal Discharge, Sinus Congestion, Sinus Pain/Tenderness Respiratory: Positive: Cough Cardiovascular: Positive: Negative Gastrointestinal: Positive: Negative Genitourinary: Positive: Negative Motor: Positive: Negative Neurovascular: Positive: Negative Musculoskeletal: Positive: Myalgia Neurological: Positive: Headache Psychological: Positive: Negative Is Patient Immunocompromised?: No Physical Exam Triage Information Reviewed: Yes Appearance: Ill-Appearing Vital Signs: Initial Vital Signs Temp 99.1 F 08/22/19 11:16 Pulse 56 08/22/19 11:16 Resp 18 08/22/19 11:16 BP 108/64 08/22/19 11:16 Pulse Ox 100 08/22/19 11:16 Vital Signs Reviewed: Yes Eye Exam: Normal ENT: Positive: Nasal congestion, Hoarse voice, Sinus tenderness Dental Exam: Normal Neck exam: Normal Respiratory Exam: Normal Cardiovascular Exam: Normal Musculoskeletal Exam: Normal Neurological Exam: Normal Psychological Exam: Normal Skin Exam: Normal Throat Pain/Nasal Course/Dx - Differential Dx/Diagnosis Differential Diagnosis/HQI/PQRI: Influenza, Pharyngitis, Sinusitis, Tonsillitis , URI Provider Diagnosis: Sinusitis Discharge ED - Sign-Out/Discharge Documenting (check all that apply): Patient Departure All imaging exams completed and their final reports reviewed: No Studies - Discharge Plan Condition: Stable Disposition: HOME Prescriptions: Clarithromycin TAB* [Biaxin 500 MG TAB*] 500 mg PO Q12H #20 tab predniSONE TAB* [Deltasone 20 MG TAB*] 20 mg PO DAILY #4 tab Patient Education Materials: Sinusitis (ED), Acute Headache (ED) Referrals: Macey Lopez NP [Primary Care Provider] - If Needed - Billing Disposition and Condition Condition: STABLE Disposition: Home
== END 2019-08-22 11:52 | disposition home or self-care (01) ==
LOC: UCCORT 10:35
DX: J32.9 Chronic sinusitis, unspecified (principal); J02.9 Acute pharyngitis, unspecified; Z87.891 Personal history of nicotine dependence; Z88.0 Allergy status to penicillin; Z91.010 Allergy to peanuts; Z88.8 Allergy status to other drugs, medicaments and biological substances; Z91.09 Other allergy status, other than to drugs and biological substances
CPT/HCPCS: 99212; A9270-GY; G0463

== ENCOUNTER 2019-09-25 10:45 | Emergency (ER) | payer OTHER ==
--- OUTSIDE RECORDS SUMMARY | 2019-09-25 11:05 | XMS REPORT | Continuity of Care Document ---
:1985 External Reference #:[id number] Author Name Howard Cotton, OD Address [facility] [address] [place] [address] Problems Description No Information Available Social History Type Date Description Comments Sex Unknown ETOH Use Rarely consumes alcohol Tobacco Use Start: Unknown Patient has never smoked Smoking Status Reviewed: 09/07/19 Patient has never smoked Allergies, Adverse Reactions, Alerts Active Allergies Reaction Severity Comments Date Penicillin 09/03/2019 Augmentin 09/03/2019 Peanut 09/03/2019 Albuterol 09/03/2019 Medications Active Medications SIG Qnty Indications Ordering Provider Date Prednisolone Acetate 1 drop three times 5ml Howardbaylee Cotton, OD 09/07/2019 1% per day Right eye Suspension x 5 days, then taper as directed Moxifloxacin HCL 1 drop q2h OD x 3 3ml Howard Cotton, OD 09/03/2019 0.5% days, then taper Solution as directed Ambien 1/2 to 1 tab at Unknown 10mg Tablets bedtime as needed Adderall one tab by mouth Unknown 5mg Tablets after school as needed. Lexapro Unknown 10mg Tablets Immunizations Description No Information Available Vital Signs Description No Information Available Results Description No Information Available Procedures Description No Information Available Medical Devices Description No Information Available Encounters Type Date Location Provider Dx Diagnosis Office Visit 09/03/2019 Main Office Howard Cotton, OD H16.041 Marginal corneal 10:30a ulcer, right eye Assessments Date Code Description Provider 09/07/2019 H16.041 Marginal corneal ulcer, right eye Howard Cotton, OD 09/03/2019 H16.041 Marginal corneal ulcer, right eye Howard Cotton, OD Plan of Treatment No Information Available Functional Status Description No Information Available Mental Status Description No Information Available Referrals Description No Information Available
--- OUTSIDE RECORDS SUMMARY | 2019-09-25 11:05 | XMS REPORT | Continuity of Care Document ---
:1985 External Reference #:[id number] Author Name Howard Cotton, OD Address [facility] [address] [place] [address] Problems Description No Information Available Social History [...] Prednisolone Acetate 1 drop three times 5ml Howard Cotton, OD 09/07/2019 1% per day Right eye Suspension x 5 days, then taper as directed Moxifloxacin HCL 1 drop q2h OD x 3 3ml Howard Cotton OD 09/03/2019 0.5% days, then taper Solution [...] Marginal corneal ulcer, right eye Howard Cotton, KATHERINE 09/03/2019 H16.041 Marginal corneal ulcer, right eye Howard Cotton, OD Plan of Treatment Future Appointment(s):09/09/2019 3:30 pm - Howard Cotton OD at Main [id number] - Howard Cotton ODH16.041 Marginal corneal ulcer, right eyeFollow up:2 days f/u, sooner PRN Functional Status Description No Information Available Mental Status Description No Information Available Referrals Description No Information Available
--- OUTSIDE RECORDS SUMMARY | 2019-09-25 11:05 | XMS REPORT | Continuity of Care Document ---
:1985 External Reference #:[id number] Author Name Howard Cotton, OD Address [facility] [address] [place] [address] Problems Description No Information Available Social History Type Date Description Comments Sex Unknown ETOH Use Rarely consumes alcohol Tobacco Use Start: Unknown Patient has never smoked Smoking Status Reviewed: 09/17/19 Patient has never smoked Allergies, Adverse Reactions, Alerts Active Allergies Reaction Severity Comments Date Penicillin 09/03/2019 Augmentin 09/03/2019 Peanut 09/03/2019 Albuterol 09/03/2019 Medications Active Medications SIG Qnty Indications Ordering Provider Date Prednisolone Acetate 1 drop three times 5ml Howard Cotton, OD 09/07/2019 1% per day Right eye Suspension x 5 days, then taper as directed Ambien 1/2 to 1 tab at Unknown 10mg Tablets bedtime as needed Adderall one tab by mouth Unknown 5mg Tablets after school as needed. Lexapro Unknown 10mg Tablets History Medications Moxifloxacin HCL 1 drop q2h OD x 3 3ml Howard Cotton, OD 09/03/2019 - 0.5% days, then taper as 09/17/2019 Solution directed Immunizations Description No Information Available Vital Signs Date Vital Result Comment 09/17/2019 3:36pm Intraocular Pressure Right Eye 16 mmHg 09/09/2019 3:41pm Intraocular Pressure Right Eye 15 mmHg Results Description No Information Available Procedures Description No Information Available Medical Devices Description No Information Available Encounters Type Date Location Provider Dx Diagnosis Office Visit 09/17/2019 Main Office Howard Cotton, OD H16.041 Marginal corneal 3:15p ulcer, right eye Office Visit 09/09/2019 Main Office Howard Cotton, OD H16.041 Marginal corneal 3:30p ulcer, right eye Office Visit 09/04/2019 Main Office Howard Cotton, OD H16.041 Marginal corneal 10:30a ulcer, right eye Office Visit 09/03/2019 Main Office Howard Cotton, OD H16.041 Marginal corneal 10:30a ulcer, right eye Assessments Date Code Description Provider 09/17/2019 H16.041 Marginal corneal ulcer, right eye Howard Cotton, OD 09/09/2019 H16.041 Marginal corneal ulcer, right eye Howard Cotton, OD 09/07/2019 H16.041 Marginal corneal ulcer, right eye Howard Cotton, OD 09/04/2019 H16.041 Marginal corneal ulcer, right eye Howard Cotton, OD 09/03/2019 H16.041 Marginal corneal ulcer, right eye Howard Cotton, OD Plan of Treatment 09/17/2019 - Howard Cotton, ODH16.041 Marginal corneal ulcer, right eyeFollow up :yearly full, sooner PRN Functional Status Description No Information Available Mental Status Description No Information Available Referrals Description No Information Available
--- OUTSIDE RECORDS SUMMARY | 2019-09-25 11:05 | XMS REPORT | Continuity of Care Document ---
:1985 External Reference #:[id number] Author Name Howard Cotton, OD Address [facility] [address] [place] [address] Problems Description No Information Available Social History Type Date Description Comments Sex Unknown ETOH Use Rarely consumes alcohol Tobacco Use Start: Unknown Patient has never smoked Smoking Status Reviewed: 09/03/19 Patient has never smoked Allergies, Adverse Reactions, Alerts Active Allergies Reaction Severity Comments Date Penicillin 09/03/2019 Augmentin 09/03/2019 Peanut 09/03/2019 Albuterol 09/03/2019 Medications Active Medications SIG Qnty Indications Ordering Provider Date Moxifloxacin HCL 1 drop q2h OD x [...] right eye Assessments Date Code Description Provider 09/03/2019 H16.041 Marginal corneal ulcer, right eye Howard Cotton, OD Plan of Treatment 09/03/2019 - Howard Cotton, ODH16.041 Marginal corneal ulcer, right eyeFollow up :1 day f/u, sooner PRN Functional Status Description No Information Available Mental Status Description No Information Available Referrals Description No Information Available
--- OUTSIDE RECORDS SUMMARY | 2019-09-25 11:05 | XMS REPORT | Continuity of Care Document ---
:1985 External Reference #:[id number] Author Name Howard Cotton, OD Address [facility] [address] [place] [address] Problems Description No Information Available Social History [...]
--- OUTSIDE RECORDS SUMMARY | 2019-09-25 11:05 | XMS REPORT | Continuity of Care Document ---
:1985 External Reference #:[id number] Author Name Howard Cotton, OD Address [facility] [address] [place] [address] Problems Description No Information Available Social History Type Date Description Comments Sex Unknown ETOH Use Rarely consumes alcohol Tobacco Use Start: Unknown Patient has never smoked Smoking Status Reviewed: 09/09/19 Patient has never smoked Allergies, Adverse Reactions, [...] right eye Assessments Date Code Description Provider 09/09/2019 H16.041 Marginal corneal ulcer, right eye Howard Cotton, OD 09/07/2019 H16.041 Marginal corneal ulcer, right eye Howard Cotton, OD 09/03/2019 H16.041 Marginal corneal ulcer, right eye Howard Cotton, OD Plan of Treatment Future Appointment(s):09/17/2019 3:15 pm - Howard Cotton, OD at Main [id number] - Howard Cotton, ODH16.041 Marginal corneal ulcer, right eyeFollow up:1 week f/u, sooner PRN Functional Status Description No Information Available Mental Status Description No Information Available Referrals Description No Information Available
[2019-09-25 11:14] VITALS: BP 110/67
--- NOTE | 2019-09-25 12:25 | UC ---
Complaint Female HPI - HPI Summary HPI Summary: Pt presents with c/o sudden onset of vaginal itching, foul smelling discharge and slight discomfort and swelling. Pt states that she is "prone" to BV and yeast and thinks she has another "infection". 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 Denies risk for and STI's. - History Of Current Complaint Chief Complaint: UCGeneralIllness Stated Complaint: FEMALE COMPLAINT Time Seen by Provider: 09/25/19 11:29 Hx Obtained From: Patient Hx Last Menstrual Period: uterine ablasion ?: No Onset/Duration: Sudden Onset, Lasting Days, Still Present Timing: Constant Severity Initially: Mild Severity Currently: Mild Pain Intensity: 0 Pain Scale Used: 0-10 Numeric Character: Burning Aggravating Factor(s): Nothing Alleviating Factor(s): Nothing Associated Signs And Symptoms: Positive: Vaginal Discharge, Genital Swelling - mild - Risk Factors Ectopic Risk Factor: Negative Ovarian Torsion Risk Factor: Reproductive Age - Allergies/Home Medications Allergies/Adverse Reactions: Allergies Allergy/AdvReac Type Severity Reaction Status Date / Time albuterol Allergy Anxiety Verified 09/25/19 11:14 amoxicillin Allergy Abdominal Verified 09/25/19 11:14 Pain clavulanic acid Allergy Abdominal Verified 09/25/19 11:14 Pain methylphenidate Allergy Hives Verified 09/25/19 11:14 [From Ritalin] peanut oil Allergy GI Upset Verified 09/25/19 11:14 Penicillins Allergy Abdominal Verified 09/25/19 11:14 Pain Blue Foam Allergy Hives Uncoded 09/25/19 11:14 peanuts Allergy Stomach Uncoded 09/25/19 11:14 Cramps PMH/Surg Hx/FS Hx/Imm Hx Previously Healthy: Yes Other History Of: Negative For: HIV, Hepatitis B, Hepatitis C, Anticoagulant Therapy - Surgical History Surgical History: Yes Surgery Procedure, Year, and Place: Uterine Ablation, 09/14/12. Tubal Ligation , 2011. ENDOSCOPY. GALLBLADDER-2018. right carpal tunnel surger-2019 - Family History Known Family History: Positive: Respiratory Disease Negative: Cardiac Disease, Hypertension, Diabetes - Social History Occupation: Employed Full-time Lives: With Family Alcohol Use: Rare Substance Use Type: None Substance Use Comment - Amount & Last Used: more recently for nausea Smoking Status (MU): Former Smoker Have You Smoked in the Last Year: No When Did the Patient Quit Smoking/Using Tobacco: 5-6 years ago Household Exposure Type: Cigarettes - Immunization History Most Recent Influenza Vaccination: OCT 2015 Most Recent Tetanus Shot: May 2013 Hx Tetanus, Diphtheria Vaccination: Yes Vaccination Up to Date: Yes Review of Systems All Other Systems Reviewed And Are Negative: Yes Constitutional: Positive: Negative Skin: Positive: Negative Eyes: Positive: Negative ENT: Positive: Negative Respiratory: Positive: Negative Cardiovascular: Positive: Negative Gastrointestinal: Positive: Negative Genitourinary: Positive: Vaginal/Penile Burning, Vaginal/Penile Itching, Vaginal /Penile Discharge, Vaginal/Penile Tenderness Motor: Positive: Negative Neurovascular: Positive: Negative Musculoskeletal: Positive: Negative Neurological: Positive: Negative Psychological: Positive: Negative Is Patient Immunocompromised?: No Physical Exam - Summary Physical Exam Summary: Pt was offered pelvic exam and opted for self swab. Triage Information Reviewed: Yes Appearance: Well-Appearing Vital Signs: Initial Vital Signs Temp 98.4 F 09/25/19 11:11 Pulse 60 09/25/19 11:11 Resp 18 09/25/19 11:11 BP 110/67 09/25/19 11:11 Pulse Ox 100 09/25/19 11:11 Vital Signs Reviewed: Yes Eye Exam: Normal ENT Exam: Normal ENT: Positive: Hearing grossly normal Dental Exam: Normal Neck exam: Normal Respiratory Exam: Normal Cardiovascular Exam: Normal Abdominal Exam: Normal Abdomen Description: Positive: Nontender Musculoskeletal Exam: Normal Neurological Exam: Normal Psychological Exam: Normal Skin Exam: Normal Complaint Female Dx - Differential Dx/Diagnosis Differential Diagnosis/HQI/PQRI: Sexually Transmitted Disease, Urinary Tract Infection Provider Diagnosis: Vaginitis Discharge ED - Sign-Out/Discharge Documenting (check all that apply): Patient Departure All imaging exams completed and their final reports reviewed: No Studies - Discharge Plan Condition: Stable Disposition: HOME Prescriptions: Fluconazole 150 MG TAB* [Diflucan 150 MG TAB*] 150 mg PO ONCE #2 tablet metroNIDAZOLE VAGINAL 0.75%* 1 applic VAGINAL BEDTIME #5 tube Patient Education Materials: Vaginitis (ED) Referrals: Macey Lopez NP [Primary Care Provider] - If Needed Additional Instructions: Please follow up with your PCP as needed. - Billing Disposition and Condition Condition: STABLE Disposition: Home
--- NOTE | 2019-09-27 07:05 | UC ---
- Progress Note Progress Note: + gardenrella Pt given Rx flagyl no change Brandon Course/Dx - Diagnoses Provider Diagnoses: Vaginitis Discharge ED - Sign-Out/Discharge Documenting (check all that apply): Post-Discharge Follow Up All imaging exams completed and their final reports reviewed: No Studies - Discharge Plan Condition: Stable Disposition: HOME Prescriptions: Fluconazole 150 MG TAB* [Diflucan 150 MG TAB*] 150 mg PO ONCE #2 tablet metroNIDAZOLE VAGINAL 0.75%* 1 applic VAGINAL BEDTIME #5 tube Patient Education Materials: Vaginitis (ED) Referrals: Macey Lopez NP [Primary Care Provider] - If Needed Additional Instructions: Please follow up with your PCP as needed. - Billing Disposition and Condition Condition: STABLE Disposition: Home
== END 2019-09-25 11:57 | disposition home or self-care (01) ==
LOC: UCCORT 10:45
DX: N76.0 Acute vaginitis (principal); Z88.0 Allergy status to penicillin; Z88.8 Allergy status to other drugs, medicaments and biological substances; Z91.010 Allergy to peanuts; Z91.09 Other allergy status, other than to drugs and biological substances; Z87.891 Personal history of nicotine dependence
CPT/HCPCS: 87480; 87510; 99212; G0463

== ENCOUNTER 2020-02-29 13:50 | Emergency (ER) | payer OTHER ==
--- OUTSIDE RECORDS SUMMARY | 2020-02-29 13:56 | XMS REPORT | Continuity of Care Document ---
:1985 External Reference #:[id number] Author Name Macey Lopez, BELKYSBC, CAREER DEVELOPER, Ibclc (transmitted by agent of provider Ian Simmons) Address [address] [place] [id number] Care Team Providers Name Role Phone Macey Lopez PNP-BC, CAREER DEVELOPER, Ibclc Care Team Information Crystal Grower - Family Problems Active Problems Provider Date [...] Unknown 1/2 Pack Daily Smoking Status Reviewed: 12/20/19 Former Cigarette Smoker Quit 3 years ago [...] Medications SIG Qnty Indications Ordering Date Provider Escitalopram Oxalate 1 by mouth every 30tabs F41.9 Macey Lopez, 2019 day PNP-BC, CAREER DEVELOPER, 20mg Tablets Ibclc Diclofenac Sodium apply four times a 100gm M54.5 Macey Lopez, 12/20/2019 1% day as needed PNP-BC, CAREER DEVELOPER, Gel Ibclc Vivotif 1 cap by mouth 1 4caps Z23 Macey Lopez, 10/12/[address] hour before meal PNP-BC, CAREER DEVELOPER, with cold drink Ibclc every other day for 4 doses complete at least 1 week before leaving Benzonatate take 1 capsule 3 30caps J20.9 Macey Lopez, 10/12/2019 200mg times daily as PNP-BC, CAREER DEVELOPER, Capsules needed for a Ibclc cough. Prazosin HCL 1 at bedtime 30caps F41.9 Macey Lopez, 10/12/2019 1mg PNP-BC, CAREER DEVELOPER, Capsules Ibclc Amphetamine-Dextroamp 1 cap by mouth 30caps F90.9 Macey Lopez, 2018 het ER every morning PNP-BC, CAREER DEVELOPER, 10mg Caps ER Reference #: Ibclc 24HR [id number] Ambien 1 every night at 30tabs G47.00 Macey Lopez, 05/26/2019 10mg Tablets bedtime as needed PNP-BC, CAREER DEVELOPER, Reference #: Ibclc [id number] Meloxicam take 1 tablet by 60tabs M25.549 Macey Lopez, 10/19/2018 7.5mg Tablets mouth twice a day PNP-BC, CAREER DEVELOPER, Ibclc Hydroxyzine HCL 1-2 tabs by mouth 90tabs F41.9 Macey Lopez, 12/10/2017 25mg three times a day PNP-BC, CAREER DEVELOPER, Tablets as needed anxiety Ibclc Flovent HFA 2 puff twice a day Unknown 44mcg/Act prn Aerosol History Medications Prednisone 2 tabs today; 1 5tabs J20.9 Macey Lopez, 10/12/2019 - 20mg tab for 2 days; PNP-BC, CAREER DEVELOPER, 10/18/2019 Tablets 2 days of 1/2 Ibclc tab Immunizations CPT Code Status Date Vaccine Lot # [id number] Given 10/12/2019 Tdap injection [id number] 67040 Given 10/12/2019 Hepatitis A Vaccine Adult Dosage [id number] 88969 Given 09/16/2018 Influenza Virus Vaccine, Quadrivalent, 36 Mos+, [id number] 97921 Given 07/25/2017 Influenza Virus Vaccine Quadrivalent Iiv4 Split [id number] Preser Free Id [id number] Given 10/24/2015 Influenza Vaccine (Fluzone) Age 3 And Older [id number] 44395 Given 09/01/2014 flu vaccination 16911 Given 08/19/2013 flu vaccination 52094 Given 06/03/2013 Tdap injection 33212 Given 08/21/2010 flu vaccination Vital Signs Date Vital Result Comment 12/20/2019 2:48pm BP Systolic 118 mmHg BP Diastolic 70 mmHg Body Temperature 98.0 F Heart Rate 68 /min Respiratory Rate 16 /min Height 64 inches 5'4" Weight 155.00 lb BMI (Body Mass Index) 26.6 kg/m2 BSA (Body Surface Area) 1.76 m2 [place] body weight in kilograms 54 kg O2 % BldC Oximetry 98 % 10/12/2019 6:23pm BP Systolic 104 mmHg BP Diastolic 78 mmHg Body Temperature 97.4 F Heart Rate 61 /min Respiratory Rate 17 /min Height 64 inches 5'4" Weight 158.00 lb BMI (Body Mass Index) 27.1 kg/m2 BSA (Body Surface Area) 1.77 m2 [place] body weight in kilograms 54 kg O2 % BldC Oximetry 98 % Results Test Acquired Date Facility Test Result H/L Range Note Laboratory test 09/25/2019 [facility] [place]/Y SEE RESULT 1, 2 finding [phone] east: Vaginal BELOW Dna 1 Would you like to order Trichomonas Vaginalis RNA testing? N [id number] 2 SEE RESULT BELOW Name: SHEFALI ANTONIO : [address]: Gaviota Campbell MD Acct: [id number] Unit: [id number] AGE: 34 Location: [facility] Re09/25/19 SEX: F Status: DEP ER SPEC: [id number] RG: 09/25/19-[address] [facility] [address]: Milka Chand NP REQ: [id number] RECD: 09/25/19 STATUS:LIU MOCTEZUMA DR: Gaviota Lopez MANAGER QA _ SOURCE: VAGINAL SPDESC: ORDERED: Fern,Yeast DNA COMMENTS: Would you like to order Trichomonas Vaginalis RNA testing? N [id number] Procedure Result Reported Site [place]/Yeast: Vaginal DNA Final 09/25/19- 1625 ML Organism 1 POSITIVE GARDNERELLA Organism 2 Negative Antonia The presence of [...] a test for therapeutic success or failure. CONTINUED ON NEXT PAGE DEPARTMENT OF PATHOLOGY, [facility] [employer] [place] [id number] Yogi Taylor M.D. Director SHAGGY # [id number] Specimen: [id number] Collected: 09/25/19 Received: 09/25/19 (Continued) Procedure Result Reported Site [place]/Yeast: Vaginal DNA Final (continued) 09/25/19- 162 * ML - Main Lab . END OF REPORT DEPARTMENT OF PATHOLOGY, [facility] [employer] [place], [place] [address] Yogi Taylor M.D. Director SHAGGY # [id number] Procedures Date Code Description Status 12/18/2017 [id number] Colonoscopy Completed Medical Devices Description No Information Available Encounters Type Date Location Provider Dx Diagnosis Office Visit 12/20/2019 Family Medicine Jessica, Macey, F41.9 Anxiety disorder, 3:10p [address] PNP-BC, CAREER DEVELOPER, unspecified Ibclc G47.00 Insomnia, unspecified R19.7 Diarrhea, unspecified M54.5 Low back pain M54.2 Cervicalgia M47.26 Other spondylosis with radiculopathy, lumbar region Office Visit 10/12/2019 6:15p Family Medicine Macey Lopez, J20.9 Acute bronchitis, [address] RD PNP-BC, CAREER DEVELOPER, unspecified Ibclc F43.10 Post-traumatic stress disorder, unspecified Z23 Encounter for immunization Office Visit 07/20/2019 Family Jessica, F90.9 Attention-deficit 4:30p Medicine [place] Macey, hyperactivity disorder, RD PNP-BC, CAREER DEVELOPER, unspecified type Ibclc F41.9 Anxiety disorder, unspecified G47.00 Insomnia, unspecified Assessments Date Code Description Provider 12/20/2019 F41.9 Anxiety disorder, unspecified Macey Lopez, PNP-BC, CAREER DEVELOPER, Ibclc 12/20/2019 G47.00 Insomnia, unspecified Macey Lopez, PNP-BC, CAREER DEVELOPER, Ibclc 12/20/2019 R19.7 Diarrhea, unspecified JessicaMacey hurd, PNP-BC, CAREER DEVELOPER, Ibclc 12/20/2019 M54.5 Low back pain Macey Lopez, PNP-BC, CAREER DEVELOPER, Ibclc 12/20/2019 M54.2 Cervicalgia Macey Lopez, PNP-BC, CAREER DEVELOPER, Ibclc 12/20/2019 M47.26 Other spondylosis with Jessica, Macey, PNP-BC, CAREER DEVELOPER, radiculopathy, lumbar region Ibclc 10/12/2019 J20.9 Acute bronchitis, unspecified Macey Lopez, PNP-BC, CAREER DEVELOPER, Ibclc 10/12/2019 F43.10 Post-traumatic stress disorder, Macey Lopez, PNP-BC, CAREER DEVELOPER , unspecified Ibclc 10/12/2019 Z23 Encounter for immunization Macey Lopez PNP-BC, CAREER DEVELOPER, Ibclc 07/20/2019 F90.9 Attention-deficit hyperactivity Macey Lopez, PNP-BC, CAREER DEVELOPER, disorder, unspecified type Ibclc 07/20/2019 F41.9 Anxiety disorder, unspecified Macey Lopez, PNP-BC, CAREER DEVELOPER, Ibclc 07/20/2019 G47.00 Insomnia, unspecified Macey Lopez PNP-BC, CAREER DEVELOPER, Ibclc Plan of Treatment Future Appointment(s):01/31/2020 9:50 am - Macey Lopez PNP-BC, FNP, [facility] RD12/20/2019 - Macey Lopez PNP-BC, FNP, FfdvkN10.9 Anxiety disorder, unspecifiedNew Medication:Escitalopram Oxalate 20 mg - 1 by mouth every dayComments:lets see if increasing your dose makes the anxiety betterFollow up:6 weeks f/uG47.00 Insomnia, unspecifiedComments:lets try the taking he prazosin without the ambien or half a one if eoaovsX05.7 Diarrhea, unspecifiedComments:try adding fiber capsules and byyafsioeC89.5 Low back painNew Medication:Diclofenac Sodium 1 % - apply four times a day as ftkkxnA93.2 CcpfgqcgxgbE57.26 Other spondylosis with radiculopathy, lumbar region Functional Status Description No Information Available Mental Status Description No Information Available Referrals Description No Information Available
[2020-02-29 14:24] VITALS: BP 121/72
--- NOTE | 2020-02-29 14:30 | UC ---
Respiratory Complaint HPI - HPI Summary HPI Summary: 34 yo female with sinus pressure and pain x 2 weeks nasal congestion and post nasal drip facial pain and pressure worsening now having to use her rescue inhaler no fever some dental sensitivity no cp some sob which cleared with MDI no Covid 19 exposure or concerns also has vaginal d/c and itch no concerned or desirous of STD testing states she gets BV and yeast all the time - History of Current Complaint Chief Complaint: UCGeneralIllness Stated Complaint: CONGESTION,SINUS Time Seen by Provider: 02/29/20 14:09 Hx Obtained From: Patient Hx Last Menstrual Period: uterine ablasion Onset/Duration: Sudden Onset, Lasting Weeks Timing: Constant Severity Initially: Mild Severity Currently: Moderate Pain Intensity: 4 Pain Scale Used: 0-10 Numeric Character: Cough: Productive Alleviating Factors: Bronchodilator Associated Signs And Symptoms: Positive: Wheezing, Nasal Congestion, Sinus Discomfort - Allergies/Home Medications Allergies/Adverse Reactions: Allergies Allergy/AdvReac Type Severity Reaction Status Date / Time albuterol Allergy Anxiety Verified 09/25/19 11:14 amoxicillin Allergy Abdominal Verified 09/25/19 11:14 Pain clavulanic acid Allergy Abdominal Verified 09/25/19 11:14 Pain methylphenidate Allergy Hives Verified 09/25/19 11:14 [From Ritalin] peanut oil Allergy GI Upset Verified 09/25/19 11:14 Penicillins Allergy Abdominal Verified 09/25/19 11:14 Pain Blue Foam Allergy Hives Uncoded 09/25/19 11:14 peanuts Allergy Stomach Uncoded 09/25/19 11:14 Cramps Home Medications: Home Medications Escitalopram Oxalate [Lexapro] 20 mg PO DAILY 02/25/18 [History Confirmed ] Dextroamphetamine/Amphetamine [Adderall 10 mg-] 10 mg PO DAILY 07/15/18 [ History Confirmed 02/29/20] Zolpidem TAB* [Ambien*] 10 mg PO BEDTIME PRN 07/04/19 [History Confirmed ] DOXYcycline CAP(*) [DOXYcycline 100MG CAP(*)] 100 mg PO BID #14 cap 02/29/20 [Rx ] Fluconazole 150 MG (NF) [Diflucan 150 mg (NF)] 150 mg PO ONCE #2 tab 02/29/20 [ Rx] Fluticasone NASAL SPRAY 50MCG* [Flonase NASAL SPRAY 50MCG*] 2 spray BOTH NARES BID #1 btl 02/29/20 [Rx] metroNIDAZOLE VAGINAL 0.75%* 1 applic VAGINAL BEDTIME 5 Days #1 tube 02/29/20 [ Rx] PMH/Surg Hx/FS Hx/Imm Hx Previously Healthy: Yes Respiratory History: Asthma, Bronchitis Other History Of: Negative For: HIV, Hepatitis B, Hepatitis C, Anticoagulant Therapy - Surgical History Surgical History: Yes Surgery Procedure, Year, and Place: Uterine Ablation, 09/14/12. Tubal Ligation , 2011. ENDOSCOPY. GALLBLADDER-2018. right carpal tunnel surger-2019 - Family History Known Family History: Positive: Respiratory Disease Negative: Cardiac Disease, Hypertension, Diabetes - Social History Alcohol Use: None Substance Use Type: None Substance Use Comment - Amount & Last Used: more recently for nausea Smoking Status (MU): Former Smoker Have You Smoked in the Last Year: No When Did the Patient Quit Smoking/Using Tobacco: 5-6 years ago Household Exposure Type: Cigarettes - Immunization History Most Recent Influenza Vaccination: OCT 2015 Most Recent Tetanus Shot: May 2013 Hx Tetanus, Diphtheria Vaccination: Yes Vaccination Up to Date: Yes Review of Systems All Other Systems Reviewed And Are Negative: Yes Constitutional: Positive: Fatigue Skin: Positive: Negative Eyes: Positive: Negative ENT: Positive: Dental Pain, Nasal Discharge, Sinus Congestion, Sinus Pain/ Tenderness Respiratory: Positive: Cough, Other - wheezing and associated dyspnea Cardiovascular: Positive: Negative Gastrointestinal: Positive: Negative Genitourinary: Positive: Negative, Vaginal/Penile Itching, Vaginal/Penile Discharge Motor: Positive: Negative Neurovascular: Positive: Negative Musculoskeletal: Positive: Negative Neurological/Mental Status: Positive: Negative Psychological: Positive: Negative Physical Exam Triage Information Reviewed: Yes Appearance: Well-Appearing, No Pain Distress, Well-Nourished Vital Signs: Initial Vital Signs Temp 98.8 F 02/29/20 13:54 Pulse 56 02/29/20 13:54 Resp 18 02/29/20 13:54 BP 121/72 02/29/20 13:54 Pulse Ox 100 02/29/20 13:54 Vital Signs Reviewed: Yes Eyes: Positive: Conjunctiva Clear ENT: Positive: Hearing grossly normal, Nasal congestion, Nasal drainage, TMs normal, Sinus tenderness. Negative: Tonsillar swelling, Tonsillar exudate, Trismus, Muffled voice, Hoarse voice, Dental tenderness Dental Exam: Normal Neck exam: Normal Neck: Positive: Supple Respiratory: Positive: Normal breath sounds, No respiratory distress, No accessory muscle use Cardiovascular: Positive: RRR, No Murmur Bowel Sounds: Positive: Present Pelvic Exam: Positive: Other - wishes to self swab Musculoskeletal: Positive: ROM Intact, No Edema Neurological: Positive: Alert Psychological: Positive: Normal Response To Family Skin Exam: Normal Respiratory Course/Dx - Differential Dx/Diagnosis Provider Diagnosis: Acute bacterial sinusitis, Vaginitis Discharge ED - Sign-Out/Discharge Documenting (check all that apply): Patient Departure All imaging exams completed and their final reports reviewed: No Studies - Discharge Plan Condition: Stable Disposition: HOME Prescriptions: DOXYcycline CAP(*) [DOXYcycline 100MG CAP(*)] 100 mg PO BID #14 cap Fluconazole 150 MG (NF) [Diflucan 150 mg (NF)] 150 mg PO ONCE #2 tab Fluticasone NASAL SPRAY 50MCG* [Flonase NASAL SPRAY 50MCG*] 2 spray BOTH NARES BID #1 btl metroNIDAZOLE VAGINAL 0.75%* 1 applic VAGINAL BEDTIME 5 Days #1 tube Patient Education Materials: Sinusitis (ED) Forms: *Work Release Referrals: Macey Lopez NP [Primary Care Provider] - 3 Days (recheck in 3-6 days if not better) Additional Instructions: rest fluids recheck for new or worsening symptoms results of vaginal swab pending - Billing Disposition and Condition Condition: STABLE Disposition: Home
== END 2020-02-29 14:45 | disposition home or self-care (01) ==
LOC: UCCORT 13:50
DX: J01.90 Acute sinusitis, unspecified (principal); N76.0 Acute vaginitis; Z88.1 Allergy status to other antibiotic agents; Z91.010 Allergy to peanuts; Z88.0 Allergy status to penicillin; Z88.8 Allergy status to other drugs, medicaments and biological substances; Z91.09 Other allergy status, other than to drugs and biological substances; Z87.891 Personal history of nicotine dependence
CPT/HCPCS: 87480; 87510; 87660; 99212; G0463